=== PATIENT | female | born 1950 | race Caucasian/White ===

== ENCOUNTER → 2017-12-19 10:30 | Outpatient (CLI) | payer MEDICARE, SELFPAY ==
--- NOTE | 2017-12-19 | DI.CT.S_ITS ---
PROCEDURE: CT CERVICAL SPINE WO CON INDICATIONS: LEFT ARM PAIN TECHNIQUE: Noncontrast 3 mm thick sections acquired from the skull base to the T4 level. Sagittal and coronal reformats were then constructed. For radiation dose reduction, the following was used: automated exposure control, adjustment of mA and/or kV according to patient size. COMPARISON: [facility], CT, C-SPINE WITHOUT CONTRAST, 04/25/2015, 12:07. [facility], MR, C-SPINE WITHOUT CONTRAST, 07/20/2015, 13:13. [facility], CR, CERVICAL SPINE 2 OR 3 VIEWS, 08/17/2015, 14:30. FINDINGS: Image quality: Excellent. Bones: No fractures or dislocations. Visualized superior ribs are intact. Extensive postoperative changes are seen, with anteriorly placed disc fixation devices at C5-C6 and C6-C7. Portions of posterior elements have been removed and plate and screw fixation can be seen posteriorly at C4, C5, C6, and C7. Note is made of a fusion anomaly, with partial fusion of the C2 and C3 vertebral bodies and posterior elements. At C3-C4, there is at least moderate neural foraminal narrowing. At C4-C5, there is moderate to severe bilateral neural foraminal narrowing. At C5-C6, there is moderate to severe bilateral neural foraminal narrowing. At C6-C7, there is moderate to severe bilateral neural foraminal narrowing. At C7-T1, bridging anterior osteophytes are seen. Soft tissues: Prevertebral soft tissues are normal in thickness. No paravertebral hematomas. No apical pneumothoraces. IMPRESSION: Extensive postoperative hardware, which appears unremarkable. Multiple levels of relatively prominent neural foraminal narrowing can be seen, which are similar to 2015. 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 Dictated by: Garret Espitia M.D. on 12/19/2017 at 13:48 Approved by: Garret Espitia M.D. on 12/19/2017 at 13:52
== END ==
PROVIDERS: PCP Physician Assistant; Visit Provider Orthopaedic Surgery
DX: M79.602 Pain in left arm (principal); M48.02 Spinal stenosis, cervical region; Z98.1 Arthrodesis status
CPT/HCPCS: 72125

== ENCOUNTER → 2018-02-04 13:33 | Outpatient (CLI) | payer MEDICARE, SELFPAY ==
[2018-02-04 14:05] LABS: Hematocrit 41.6 % (36-46); Hemoglobin 14.2 g/dL (12.0-16.0); Mean Corpuscular HGB Conc 34.2 % (30-36); Mean Corpuscular Hemoglobin 31.1 PG (26-34); Platelet Count 231 X10^3/uL (150-400); Red Blood Cell Count 4.57 X10^6/uL (4.0-5.2); Red Cell Distribution Width 12.8 % (11.6-14.8); White Blood Cell Count 5.6 X10^3/uL (4.5-11.0)
== END ==
PROVIDERS: PCP Physician Assistant; Visit Provider Orthopaedic Surgery
DX: Z01.818 Encounter for other preprocedural examination (principal)
CPT/HCPCS: 36415; 85027; 93005

== ENCOUNTER 2018-02-10 06:28 | Inpatient (IN) | payer MEDICARE, SELFPAY ==
[2018-01-30 10:46] VITALS: BMI 29.9
[2018-02-10] VITALS (18 sets, daily range): BP systolic 108–141; BP diastolic 58–82; PULSE 65–89; RESP 10–20; TEMP 36.2–37; O2SAT 94–100; BMI 29.9
[2018-02-10] MEDS: LACTATED RINGERS 1,000 ML 42 ML IV ×2 (07:00→10:52)
--- NOTE | 2018-02-10 07:43 | PM.PREOP ---
Pre-operative Note Interval Note Pre-op Check: Yes History & Physical Reviewed by Physician and Yes Exam Performed Changes: No
[2018-02-10] MEDS: MIDAZOLAM 2 MG/2 ML VIAL IV (07:48)
[2018-02-10] MEDS: CEFAZOLIN 2 GM/100 ML FROZ.PIGGY IV ×3 (08:00→23:48)
--- NOTE | 2018-02-10 08:42 | SUR.OPER ---
Prone on padded OR bed, head in foam head support, gel chest rolls, gel pad under knees, pillow under lower legs, toes free of pressure, arms secured on padded arm boards at <90 degrees abduction. 3 tape from shoulder to foot of bed bilaterally. Safety belt at thigh.
[2018-02-10] MEDS: BUPIVACAINE 0.5% W/ EPI (PF) VIAL 30 ML INJ (09:17)
[2018-02-10] MEDS: BUPIVACAINE LIPOSOME 266 MG/20 ML VIAL INJ (09:17)
[2018-02-10] MEDS: SODIUM CHLORIDE 0.9% 1,000 ML, GENTAMICIN 80 MG IRR (09:18)
[2018-02-10] MEDS: THROMBIN (BOVINE) 5,000 UNIT VIAL 5000 UNIT TOP (09:20)
[2018-02-10] MEDS: VANCOMYCIN 1,000 MG VIAL 1000 MG TOP (10:30)
--- NOTE | 2018-02-10 10:44 | DI.RAD.S_ITS ---
PROCEDURE: XR CERVICAL SPINE 4V OR 5V INDICATIONS: C4-5 POSTERIOR FUSION BILATERAL FINDINGS: 4 limited intraoperative fluoroscopically stored images of the cervical spine were obtained for intraoperative hardware localization purposes. These images are not meant for diagnostic purposes. Intraoperative findings related to a posterior cervical fusion are present. IMPRESSION: Intraoperative images obtained are in the patient's posterior cervical fusion procedure. Dictated by: Zay Weems M.D. on 02/10/2018 at 9:58 Approved by: Zay Weems M.D. on 02/10/2018 at 9:59
[2018-02-10] MEDS: fentaNYL 100 MCG/2 ML INJ IV ×2 (11:30→11:35)
--- NOTE | 2018-02-10 11:39 | P.OP_ITS ---
Operative Date/Time/Diagnoses Date of procedure: 02/10/18 Time of procedure: 11:27 Pre-op diagnosis: cervical stenosis with radiculopathy Post-op diagnosis: same Procedure & Clinicians Procedure: C45, C56, C67 left side revision foraminotomies C45 posterior instrumented fusion C56 posterior instrumented fusion removal C56 posterior hardware microscope Same procedure as scheduled: Yes Indications: [age] year old female with intractable pain from cervical radiculopathy. They had failed conservative management and requested operative intervention. Risks and benefits of surgery were discussed and appropriate consents were obtained. Surgeon: Feliberto Segundo [employer] Professor: Lucy Davis Anesthesia Type: General Operative Notes Findings: C56 nonunion Closure Type: primary Specimen(s): none sent Implants & Drains: DTrax posterior cages with screws Applied: catheter Estimated Blood Loss (mL): 20 Blood products transfused: none Procedure in detail: The patient was brought to the operating room and intubated on the stretcher. Time-out was performed. There were then rolled over to the well-padded prone position on chest rolls. Two views of fluoroscopy were taken to confirm our positioning. The neck was then prepped and draped in the standard sterile fashion. Preoperative antibiotics were given. Using fluoroscopy, we localized for planned incisions. Two small 8 mm horizontal incisions were made over the lateral masses approximately 2 fingers below our planned surgical site. We then spread down and opened up the fascia. Then percutaneously placed our Steinmann pin through the soft tissue into the facet joint at C4-5 under fluoroscopic visualization. We used the reamer to decorticate the lateral masses compromising the facet. A trocar was placed over the Steinmann pin into the facet and then the pin was removed. We used a rasp to decorticate the facet joint itself. We then filled the DTrax cage with Osteocell bone graft and impacted it into the facet joint at C4-5 under fluoroscopic guidance. We then took the lateral mass screw and placed it through the cage and then into the lateral mass for the posterior screw fixation. The anthropometrist was removed and we packed more bone graft down the trocar covering the lateral mass. This was done bilaterally. This completed the instrumented posterior fusion at C4-5. We then opened up her previous 10 cm midline incision with a scalpel. Bovie was used to come down to the spinous processes. We then subperiosteally dissected the left-sided paraspinal muscles. Care was taken as we were going over her previous scar tissue. We stayed on top of the lamina and laminoplasty plates. We exposed out laterally over the lateral masses. We exposed our new posterior fusion at C4-5. The cage at C5-6 was examined. We could grab this and actually move between C5 and C6 and was felt that she had a nonunion at this level. The cage was well fixed into the under surface of the C5 facet but not attached to the C6. We used a bur to remove some of the bone above the cage and then removed the cage. We continued our dissection and exposed the medial edges of the lateral masses from C4 through 7. We then brought in the microscope. A combination of bur, curette, and Kerrison rongeur as was to perform keyhole foraminotomies at C4-5, C5-6 and C5-7. These were revisions as she had had previous surgery and there was scar tissue from her previous laminoplasty. We carefully had to dissect the scar off of the dura and nerve roots and work out laterally. We kept removing more tissue until we were out laterally past the pedicles at each level. A nerve hook could be passed along the foramen and the nerve was opened up at every level. The middle level at C5-6 had a completely flattened nerve root that gradually filled back in after the decompression. Then, we examined the lateral mass and facet at C5-6 where we had removed the previous cage. We used a [place] to go out and expose further laterally as well as go deeper until we had a firm endpoint at the end of the facet. I felt there was enough room to put a new cage out through here. I placed a Steinmann pin under direct visualization into the left lateral mass at C5-6. We then placed the trocar over this. We reamed with the rasp and then placed our DTrax cage under direct visualization into the facet joint. We then placed the screw through the cage to lock into the lateral mass for the posterior instrumentation fixation. We confirmed positioning with fluoroscopy and took our final x-rays. The wound was copiously irrigated. There was no bleeding. The posterior fascia was closed in multiple layers. Vancomycin powder was placed in the wound. The superficial and skin were closed. Sterile dressings were placed. The patient was then extubated and brought to the recovery room without complication. Complications: none Condition: stable Disposition: PACU Plan for aftercare: Soft collar for comfort. Inpatient. Up with physical therapy.
[2018-02-10] MEDS: LORazepam 2 MG/ML SYRINGE 1 MG IV ×2 (11:40→11:45)
[2018-02-10] MEDS: HYDROCODONE/ACET 5/325 TABLET 2 TAB PO ×2 (14:25→20:59)
[2018-02-10] MEDS: LACTATED RINGERS 1,000 ML 125 ML IV ×2 (14:40→23:44)
--- NOTE | 2018-02-10 15:38 | PC.NURSE ---
Pt arrived around 1200. Dressing to neck is cdi. IVF infusing at LR at 125cc/hr. Pt is A&Ox3. Desir putting out yellow urine. Pt admitted to the floor. She is resting comfortably and states that vicodin given at 1425 not as effective for pain control. Passed on to the MONIQUE RN and she is aware.
[2018-02-10] MEDS: MORPHINE 2 MG/ML INJ 1 MG IV ×2 (16:03→21:47)
--- NOTE | 2018-02-10 17:03 | PT.IPTN ---
Current Diagnoses Spinal stenosis, cervical region (02/10/18) Strain of muscle, fascia and tendon at neck level, subsequent encounter (02/10/18) Strain of muscle(s) and tendon(s) of the rotator cuff of left shoulder, subsequent encounter (02/10/18) Arthrodesis status (02/10/18) Surgery Performed Operation Date: 02/10/18 07:45 Actual Procedures p Left C4-5,C5-6,C6-7 Foraminotomies, C4-5 instru. fusion w/bone graft - Feliberto Segundo MD Physical Therapy Treatment Note M3 PT-IP Subjective Start: 02/10/18 17:02 Freq: NEEDED Status: Active Protocol: Document 02/10/18 17:02 AB (Rec: 02/10/18 17:03 AB [id number]) Subjective Physical Therapy Visit Type Type Patient Refusal Notes Checked on pt for PT eval but pt stated that she is not ready to do PT and maybe tomorrow. will check on pt tomorrow.
[2018-02-10] MEDS: GABAPENTIN 600 MG TABLET 1200 MG PO ×2 (17:16→21:01)
[2018-02-10] MEDS: HYDROCODONE/ACET 5/325 TABLET 1 TAB PO (18:04)
[2018-02-10] MEDS: hydrOXYzine pamoate 25 MG CAPSULE PO ×2 (18:05→23:50)
[2018-02-10] MEDS: DOCUSATE 100 MG CAPSULE PO (21:00)
[2018-02-10] MEDS: PANTOPRAZOLE 20 MG TABLET PO (21:03)
[2018-02-10] MEDS: SENNOSIDES 8.6 MG TABLET 17.2 MG PO (21:04)
[2018-02-10] MEDS: ZOLPIDEM 5 MG TABLET 10 MG PO (21:05)
[2018-02-10] MEDS: SUMAtriptan 25 MG TABLET 50 MG PO (23:53)
[2018-02-11] MEDS: HYDROCODONE/ACET 5/325 TABLET 2 TAB PO ×3 (01:01→13:13)
[2018-02-11 04:41] VITALS: BP 113/64; PULSE 62; RESP 16; TEMP 36.9; O2SAT 97
[2018-02-11 07:25] VITALS: BP 113/74; PULSE 62; RESP 16; TEMP 36.9; O2SAT 98
[2018-02-11 07:27] LABS: Hemoglobin 12.6 g/dL (12.0-16.0)
--- NOTE | 2018-02-11 07:42 | PM.PNPO.1 ---
Subjective Date Patient Seen: 02/11/18 Time Patient Seen: 07:42 Interval history: Pain better than last night. Still tingling left arm Exam Vital Signs (past 8 hours): - 02/10/18 23:56 02/11/18 04:41 Temperature 97.5 F L 98.5 F Pulse Rate 78 62 Respiratory Rate 18 16 Blood Pressure 141/78 H 113/64 Pulse Oximetry 98 97 Oxygen Delivery Method Nasal Cannula Oxygen Flow Rate 2 Const Orientation: alert and awake Back/Spine/Pelvis Other: cdi/ 5/5 motor BUE except 4/5 B body die maker/int Objective Labs Result Diagrams: 02/11/18 07:00 Labs: Laboratory Results - last 24 hr 02/11/18 07:00 Hgb 12.6 Hct 36.0 Assessment & Plan Post-op Postoperative Procedures Operation Date: 02/10/18 07:45 Actual Procedures Side Surgeon p Left C4-5,C5-6,C6-7 Foraminotomies, C4-5 instru. fusion w/bone graft Feliberto Segundo MD She's progressing as expected. Plain for mobilization with PT today. Probable DC tomorrow Quality VTE Deep Vein Thrombosis/Pulmonary Embolism Present on Admission: No
[2018-02-11] MEDS: ATORVASTATIN 20 MG TABLET 40 MG PO (09:11)
[2018-02-11] MEDS: GABAPENTIN 600 MG TABLET 1200 MG PO ×3 (09:14→21:07)
[2018-02-11] MEDS: DOCUSATE 100 MG CAPSULE PO ×2 (09:14→21:08)
[2018-02-11] MEDS: PANTOPRAZOLE 20 MG TABLET PO ×2 (09:17→21:10)
--- NOTE | 2018-02-11 10:58 | PC.NURSE ---
Pt medicated with 2 vicodin and repositioned in bed. She is comfortable at this time and will be working with pt/ot later today. Incision to posterior neck with remy dressing and small amount of driend bloody drainage.
--- NOTE | 2018-02-11 11:08 | PT.IIE ---
Current Diagnoses Spinal stenosis, cervical region (02/10/18) Strain of muscle, fascia and tendon at neck level, subsequent encounter (02/10/18) Strain of muscle(s) and tendon(s) of the rotator cuff of left shoulder, subsequent encounter (02/10/18) Arthrodesis status (02/10/18) Surgery Performed Operation Date: 02/10/18 07:45 Actual Procedures p Left C4-5,C5-6,C6-7 Foraminotomies, C4-5 instru. fusion w/bone graft - Feliberto Segundo MD Surgical History (Last Updated 01/30/18 @ 11:41 by Jaja Anderson, RN) H/O hand surgery (Acute) History of back surgery (Acute) History of laminectomy (Acute) History of tonsillectomy (Acute) Status post cervical spinal fusion (Acute) Status post epidural steroid injection (Acute) Medical History (Last Updated 01/30/18 @ 11:56 by Jaja Anderson, RN) Anemia (Acute) Anxiety (Acute) Arthritis (Acute) Asthma (Acute) Cervical strain (Acute) Chronic pain (Acute) Constipation (Acute) Depression (Acute) Environmental allergies (Acute) History of migraine (Acute) History of stomach ulcers (Acute) Impaired vision (Acute) Neck pain (Acute) Numbness and tingling in left arm (Acute) Pain in both upper arms (Acute) Postmenopausal (Acute) Sinus drainage (Acute) Strain of left rotator cuff capsule (Acute) Stroke (Acute) Physical Therapy Inpatient Evaluation/Re-Eval M1 PT/OT-IP Prior Functional Status Start: 02/10/18 17:02 Freq: NEEDED Status: Active Protocol: Document 02/11/18 11:08 AB (Rec: 02/11/18 14:38 AB [id number]) Medical Review Prior Functional Status Medical History Reviewed Yes Communication able to make needs known Mobility and Gait pt stated that she is modified independent with all mobilities and ambulation using a walking stick/hiking pole for outdoor mobility but stated that she furniture walks inside the house Social History Household Members spouse Living Arrangements House Number of Floors (Floors) Two Floors Number of Stairs To Enter/Railing? no steps to enter; 14 steps to 2nd floor with R rail ascending Home Environment Standard Height Toilet Tub/Shower Home Equipment Front Wheel Walker Straight Cane Grab Bars Near Toilet Grab Bars In Shower M2 PT-IP Current Condition Start: 02/10/18 17:02 Freq: NEEDED Status: Active Protocol: Document 02/11/18 11:08 AB (Rec: 02/11/18 14:38 AB [id number]) Physical Therapy Current Condition Current Condition Evaluation Date 02/11/18 Treatment Diagnosis s/p cervical fusion; difficulties in walking Onset Date 02/10/18 Precautions Cervical Spine Precautions Soft Collar for Comfort No Heavy Lifting Log Roll M3 PT-IP Subjective Start: 02/10/18 17:02 Freq: NEEDED Status: Active Protocol: Document 02/11/18 11:08 AB (Rec: 02/11/18 14:38 AB [id number]) Subjective Physical Therapy Visit Type Type Initial Evaluation Visit Start Time 11:08 Visit Stop Time 11:45 Total Visit Minutes 57 Number of ASSISTANT PROSECUTING ATTORNEY Visits 0 Therapy Pain Assessment Pain When Pain Assessed At Rest Pain Present Pain Present Pain Reported Location Left Neck Intensity 9 Scale Used Numeric (1 - 10) Pain Management Techniques Apply Cold Timing of Activity with Medications M4 PT-IP Mobility and Gait Start: 02/10/18 17:02 Freq: NEEDED Status: Active Protocol: Document 02/11/18 11:08 AB (Rec: 02/11/18 14:38 AB [id number]) PT-Bed Mobility Assessment Supine to Sit Supine to Sit Maximum Assistance Sit to Supine Sit to Supine Maximum Assistance Scooting Scooting to Edge of Bed Maximum Assistance PT-Transfer Assessment Sit to and From Stand Sit to and from Stand Maximum Assistance 1 Person Assistance Use of Upper Extremities Equipment Transfer Assistive Device Gait Belt Front Wheeled Walker Orthotic/Prosthetic Devices or Brace: No Transfers Transfer Destination Chair Transfer Technique pt ambulated to the chair using FWW Gait Assessment Gait Gait Assistance Required: Moderate Assistance Maximum Assistance Distance (Feet) 12 Able to Maintain Weight Bearing Status Yes During Gait Assistive Devices Assistive Device Gait Belt Front Wheeled Walker Orthotic/Prosthetic Devices or Brace: No Gait Deviations General Gait Pattern Decreased Stride Length Decreased Feet Clearance Step-to Gait Factors Limiting Gait Function Factors Limiting Gait Function Decreased Activity Tolerance Decreased Strength Limited Range of Motion Pain Poor Balance Poor Safety Awareness PT-Balance Assessment Sitting Balance and Reactions Static Sitting Balance Ability Good Dynamic Sitting Balance Ability Fair Standing Balance and Reactions Static Standing Balance Ability Poor Dynamic Standing Balance Ability Poor Device Used FWW M5 PT-IP Objective Assessments Start: 02/10/18 17:02 Freq: NEEDED Status: Active Protocol: Document 02/11/18 11:08 AB (Rec: 02/11/18 14:38 AB [id number]) Orientation Orientation/Cognition Level of Alertness Alert Orientation Name Place Situation Safety Awareness Decreased Safety Awareness Gross Range of Motion Lower Extremity ROM Assessment Within Functional Limits Strength Lower Extremity Strength Assessment Right Impaired M6 PT-IP Treatment Start: 02/10/18 17:02 Freq: NEEDED Status: Active Protocol: Document 02/11/18 11:08 AB (Rec: 02/11/18 14:38 AB [id number]) Physical Therapy Treatment Education Education Provided Precautions Weight Bearing Status Post-Op Packet Safety M7 PT-IP Assessment and Plan Start: 02/10/18 17:02 Freq: NEEDED Status: Active Protocol: Document 02/11/18 11:08 AB (Rec: 02/11/18 14:38 AB [id number]) PT Summary Assessment and Plan Potential Rehabilitation Potential Good Summary Impairments Pain ROM Strength Balance Coordination Sensation Cognition Bed Mobility Transfers Gait Activity Tolerance Assessment Summary pt requiring max A and cues for mobility. d/c plan depending on pt's progress and if spouse will be able to assist pt at home. caregiver training will be conducted when appropriate. At this time, pt will require SNF rehab. Goals Bed Mobility Goal Standby Assistance Transfer Goal Standby Assistance Gait Goal Standby Assistance Gait Distance 150 Other Goals up/down 14 steps with R rail ascending Days to Meet Goals 5 Frequency of Treatment Frequency Of Treatment Twice a Day Treatment Plan Physical Therapy Treatment Plan Bed Mobility Training Transfer Training Gait Training Therapeutic Exercise Balance Retraining Post Op Education Discharge Planning Hot or Cold Pack Neuromuscular Re-ed Coordination Retraining Manual Therapy Other Recommendations and Next Treatment ambulation, caregiver training Focus Recommendations To Nursing Amount of Assist Needed 1 Person Assist Discharge Recommendations PT Discharge Recommendations Home with 24/7 Assist Home Health SNF Rehab Other Discharge Recommendations SNF vs home with 24/7 assist and homehealth PT
[2018-02-11] MEDS: METHOCARBAMOL 500 MG TABLET 1000 MG PO (12:40)
--- NOTE | 2018-02-11 13:55 | PT.IPTN ---
Current Diagnoses Spinal stenosis, cervical region (02/10/18) Strain of muscle, fascia and tendon at neck level, subsequent encounter (02/10/18) Strain of muscle(s) and tendon(s) of the rotator cuff of left shoulder, subsequent encounter (02/10/18) Arthrodesis status (02/10/18) Surgery Performed Operation Date: 02/10/18 07:45 Actual Procedures p Left C4-5,C5-6,C6-7 Foraminotomies, C4-5 instru. fusion w/bone graft - Feliberto Segundo MD Physical Therapy Treatment Note M2 PT-IP Current Condition Start: 02/10/18 17:02 Freq: NEEDED Status: Active Protocol: Document 02/11/18 11:08 AB (Rec: 02/11/18 14:38 AB [id number]) Physical Therapy Current Condition Current Condition Evaluation Date 02/11/18 Treatment Diagnosis s/p cervical fusion; difficulties in walking Onset Date 02/10/18 Precautions Cervical Spine Precautions Soft Collar for Comfort No Heavy Lifting Log Roll M3 PT-IP Subjective Start: 02/10/18 17:02 Freq: NEEDED Status: Active Protocol: Document 02/11/18 13:55 GGD (Rec: 02/11/18 14:54 GGD [id number]) Subjective Physical Therapy Visit Type Type Treatment Note Visit Start Time 13:30 Visit Stop Time 13:55 Total Visit Minutes 25 Number of TRASH COLLECTOR SUPERVISOR Visits 1 Physical Therapy Visit Comments Patient Comments Pt states that she is willing to get up. Therapy Pain Assessment Pain When Pain Assessed At Rest Pain Present Pain Present Pain Reported Location Left Neck Intensity 8 Scale Used Numeric (1 - 10) Pain Management Techniques Timing of Activity with Medications M4 PT-IP Mobility and Gait Start: 02/10/18 17:02 Freq: NEEDED Status: Active Protocol: Document 02/11/18 13:55 GGD (Rec: 02/11/18 14:54 GGD [id number]) PT-Bed Mobility Assessment Rolling Type of Rolling Roll to Left Level of Assist Contact Guard Assistance Supine to Sit Supine to Sit Contact Guard Assistance Sit to Supine Sit to Supine Contact Guard Assistance Scooting Scooting to Edge of Bed Contact Guard Assistance PT-Transfer Assessment Sit to and From Stand Sit to and from Stand Contact Guard Assistance Use of Upper Extremities Equipment Transfer Assistive Device Gait Belt Front Wheeled Walker Orthotic/Prosthetic Devices or Brace: No Transfers Transfer Destination Chair Gait Assessment Gait Gait Assistance Required: Contact Guard Assist Distance (Feet) 80 Able to Maintain Weight Bearing Status Yes During Gait Assistive Devices Assistive Device Gait Belt Front Wheeled Walker Orthotic/Prosthetic Devices or Brace: No Gait Deviations General Gait Pattern Decreased Stride Length Decreased Feet Clearance Step-to Gait Factors Limiting Gait Function Factors Limiting Gait Function Decreased Activity Tolerance Decreased Strength Limited Range of Motion Pain Poor Balance Poor Safety Awareness M5 PT-IP Objective Assessments Start: 02/10/18 17:02 Freq: NEEDED Status: Active Protocol: Document 02/11/18 11:08 AB (Rec: 02/11/18 14:38 AB [id number]) Orientation Orientation/Cognition Level of Alertness Alert Orientation Name Place Situation Safety Awareness Decreased Safety Awareness Gross Range of Motion Lower Extremity ROM Assessment Within Functional Limits Strength Lower Extremity Strength Assessment Right Impaired M6 PT-IP Treatment Start: 02/10/18 17:02 Freq: NEEDED Status: Active Protocol: Document 02/11/18 13:55 GGD (Rec: 02/11/18 14:54 GGD [id number]) Physical Therapy Treatment Education Education Provided Safety M7 PT-IP Assessment and Plan Start: 02/10/18 17:02 Freq: NEEDED Status: Active Protocol: Document 02/11/18 13:55 GGD (Rec: 02/11/18 14:54 GGD [id number]) PT Summary Assessment and Plan Summary Assessment Summary Pt is improving with mobility. She need less assist with bed mobility and able to progress gait. She had mild unsteadiness with gait with FWW. She is able to sleep on main level of home, she doesn' t need to stair mobility. Recommendations To Nursing Amount of Assist Needed 1 Person Assist Discharge Recommendations PT Discharge Recommendations Home with Assistance Home with 18/11 Assist
--- NOTE | 2018-02-11 14:18 | OT.IP.EVAL ---
Current Diagnoses Spinal stenosis, cervical region (02/10/18) Strain of muscle, fascia and tendon at neck level, subsequent encounter (02/10/18) Strain of muscle(s) and tendon(s) of the rotator cuff of left shoulder, subsequent encounter (02/10/18) Arthrodesis status (02/10/18) Surgery Performed Operation Date: 02/10/18 07:45 Actual Procedures p Left C4-5,C5-6,C6-7 Foraminotomies, C4-5 instru. fusion w/bone graft - Feliberto Segundo MD Past Medical History (Last Updated 01/30/18 @ 11:56 by Jaja Anderson, RN) Anemia (Acute) Anxiety (Acute) Arthritis (Acute) Asthma (Acute) Cervical strain (Acute) Chronic pain (Acute) Constipation (Acute) Depression (Acute) Environmental allergies (Acute) History of migraine (Acute) History of stomach ulcers (Acute) Impaired vision (Acute) Neck pain (Acute) Numbness and tingling in left arm (Acute) Pain in both upper arms (Acute) Postmenopausal (Acute) Sinus drainage (Acute) Strain of left rotator cuff capsule (Acute) Stroke (Acute) Surgical History (Last Updated 01/30/18 @ 11:41 by Jaja Anderson, RN) H/O hand surgery (Acute) History of back surgery (Acute) History of laminectomy (Acute) History of tonsillectomy (Acute) Status post cervical spinal fusion (Acute) Status post epidural steroid injection (Acute) Occupational Therapy Inpatient Evaluation/Re-Eval M1 PT/OT-IP Prior Functional Status Start: 02/10/18 17:02 Freq: NEEDED Status: Active Protocol: Document 02/11/18 14:18 ASHLEY (Rec: 02/11/18 14:40 ASHLEY [id number]) Medical Review Prior Functional Status Medical History Reviewed Yes Diet/Fluid Consistency Regular Communication WNL Mobility and Gait Pt states she tends to furniture walk in house; especially when avoiding her large dog. She uses a walking stick in the community. Activities of Daily Living and IADL's Pt was independent with all self care, shares forest aide with and drives . Prior Functional Level (Other details) uses cane for mobility , but can assist 24/7 with IADLS, driving and pt showering PRN. Social History Household Members spouse Living Arrangements Apartment/Condo Number of Floors (Floors) Two Floors Number of Stairs To Enter/Railing? 11+3 stairs with railing to access bedroom, threshold only to enter house Home Environment Standard Height Toilet Tub/Shower Doors Home Equipment Hand Held Shower Grab Bars Near Toilet Grab Bars In Shower Employment Status Retired Additional Social History Comment Note there is no bathroom on upper level; pt uses BSC in a closet upstairs; will empty it M2 OT-IP Current Condition Start: 02/11/18 14:25 Freq: Status: Active Protocol: Document 02/11/18 14:18 PJM (Rec: 02/11/18 14:40 [facility] [id number]) Occupational Therapy Current Condition Current Condition Evaluation Date 02/11/18 Treatment Diagnosis decreased activity tolerance, self care, mobility s/p C4-7 PLIF Post Operative Precautions Cervical Spine Precautions Soft Collar for Comfort No Heavy Lifting Log Roll M3 OT- IP Subjective and Pain Start: 02/11/18 14:25 Freq: Status: Active Protocol: Document 02/11/18 14:18 PJM (Rec: 02/11/18 14:40 [facility] NRTM) OT- Subjective Occupational Therapy Visit Type Type Initial Evaluation Visit Start Time 13:58 Visit Stop Time 14:18 Total Visit Minutes 20 Notes Evaluation shortened by pt's high pain level this session; RN aware of current pain level Occupational Therapy Visit Comments Patient/Caregiver Goals to have less pain, be able to go up 14 stairs to get to her bedroom OT Pain Assessment Pain When Pain Assessed After Treatment Pain Present Pain Present Pain Reported Location Left Neck Intensity 9 Scale Used Numeric (1 - 10) Description Aching Acute Burning Pain Behaviors Crying Facial Grimacing Guarding Wincing Management Techniques Apply Cold Distraction Modification of Treatment Re-positioning Timing of Activity with Medications M4 OT- IP ADL's Start: 02/11/18 14:25 Freq: Status: Active Protocol: Document 02/11/18 14:18 PJM (Rec: 02/11/18 14:40 [facility] [id number]) OT [id number] General Evaluation Self-Feeding Ability Independent Comments OT Self-Feeding Comments after set up by pt report OT ADL-Grooming Comments OT Grooming Comments did not occur; pt not able to tolerate sitting up in chair this session OT ADL-Oral Care Comments Oral Care Comments did not occur; pt not able to tolerate sitting up in chair this session OT ADL-Dressing Comments OT Dressing Comments did not occur; pt not able to tolerate sitting up in chair this session OT ADL-Toileting General Evaluation Toileting Ability Total Assistance Areas Needing Assistance Empty Catheter or Colostomy Comments OT Toileting Comments pt still has busby OT ADL-Bathing Comments OT Bathing Comments to be assessed as activity tolerance improves M5 OT- IP IADL's Start: 02/11/18 14:25 Freq: Status: Active Protocol: Document 02/11/18 14:18 PJM (Rec: 02/11/18 14:40 [facility] [id number]) OT-Instrumental Activities of Daily Living Deficits IADL Deficits Identified Deficits Home Safety Awareness Awareness of Need for Assistance at Home Good Awareness Ability to Problem Solve Emergency Able to Problem Solve Situations Medication Management Medication Management No Deficits Identified Money Management Money Management No Deficits Identified Meal Preparation Meal Preparation Caregiver Provides Assist Marketing Operations Specialist Marketing Operations Specialist Caregiver Provides Assist Driving Driving Caregiver Provides Assist Driving Comments to assist until pt able M6 OT- IP Functional Cognition Start: 02/11/18 14:25 Freq: Status: Active Protocol: Document 02/11/18 14:18 PJM (Rec: 02/11/18 14:40 [facility] [id number]) Cognitive Factors Limiting Selfcare Function Cognitive Ability Level of Alertness Alert Patient Orientation Name Age Birthday Month Date Year Day of Week Place Situation Attention Span Ability Capable of Focused Attention Ability to Follow Commands Able to Follow One Step Commands Memory Description No Deficits Noted Safety Awareness No Deficits Noted Problem Solving Ability No deficits Noted Executive Function Ability No Deficits Noted Cognitive Comments Cognitive Assessment Comments pt distracted by high pain level OT- Vision and Hearing OT- Hearing Assessment OT- Hearing Assessment WFL OT- Vision Assessment Visual Acuity WFL Glasses All The Time Vision Assessment Comments pt denies any vision changes M7 OT- IP Mobility and Balance Start: 02/11/18 14:25 Freq: Status: Active Protocol: Document 02/11/18 14:18 PJM (Rec: 02/11/18 14:40 [facility] [id number]) OT- Bed Mobility Assessment Rolling Type of Rolling Roll to Left Level of Assistance Standby Assistance Sit to Supine Sit to Supine Assist Contact Guard Assistance Scooting Scooting to Edge of Bed Standby Assistance Scooting Up and Down in Bed Standby Assistance OT-Transfer Assessment Sit to and From Stand Sit to and from Stand Contact Guard Assistance Transfers Transfer Ability Contact Guard Assistance Technique Transfer Destination Bed Transfer Technique Stand Step Pivot Devices Transfer Assistive Devices Bed Rail Gait Belt Front Wheeled Walker Comments Mobility Comments pt moves well depsite high pain level OT- Gait Assessment Gait Gait Assistance Required: Contact Guard Assist Distance (Feet) 15 Assistive Devices Assistive Device Gait Belt Front Wheeled Walker OT- Balance Assessment Sitting Balance and Reactions Static Sitting Balance Ability Good Dynamic Sitting Balance Ability Good Standing Balance and Reactions Static Standing Balance Ability Good Dynamic Standing Balance Ability Good M8 OT- IP Objective Assessments Start: 02/11/18 14:25 Freq: Status: Active Protocol: Document 02/11/18 14:18 PJM (Rec: 02/11/18 14:40 PJ [id number]) OT Gross Range of Motion Upper Extremity Range of Motion Assessment Within Functional Limits ROM Impairments shoulders tested to 90 degrees only due to recent surgery OT Strength Upper Extremity Strength Assessment Within Functional Limits Hand Furnace Repairer Strength Hand Dominance Right OT- Coordination Assessment Comments Coordination Comments BUE WFL OT-Muscle Tone Assessment Muscle Tone WNL Yes OT Sensation Assessment Comments Summary Comments pt reports numbness in L fingertips and palm of hand and around L elbow Edema Edema Absent M9 OT- IP Assessment and Plan Start: 02/11/18 14:25 Freq: Status: Active Protocol: Document 02/11/18 14:18 PJM (Rec: 02/11/18 14:40 PJ [id number]) OT Summary Assessment and Plan Potential Rehabilitation Potential Good Analytic Complexity at Evaluation Low Summary OT Impairments Pain Grooming Dressing Toileting Bathing Toilet Transfers Shower Transfers Progress Towards Goals Slow Progress due to Pain Assessment Summary Low complexity OT assessment begun as limited by pt's high pain level today which is significantly limiting her ability to be out of bed. Pt tolerates walking better than sitting in chair. Pt currently has performance deficits in activity tolerance, all functional mobility/transfers, standing grooming, dressing, bathing and toileting. Pt moves well when up and anticipate she will progress quickly once her pain is controlled. Pt reports this is her fourth C spine surgery so she is familiar with precautions and adapted ADLS. Supportive can provide 24 hr assist at home. Goals Grooming Goal Independent Dressing Goal Standby Assistance Toileting Goal Independent Bathing Goal Minimal Assistance Toilet Transfer Goal Independent Bedside Commode Shower Transfer Goal Contact Guard Assistance Patient/Caregiver Education Goal Demonstrate Post-Op Precautions Demonstrate Energy Conservation and Pacing Caregiver Independent Assisting Patient OT-Other Goals grooming to be done standing at sink with good body mechanics Days to Meet Goals 3 Frequency of Treatment Frequency Of Treatment Once a Day Treatment Plan OT Treatment Plan ADL Training Functional Mobility Patient/Family Education Discharge Planning Discharge Recommendations OT Discharge Recommendations Home with 18/11 Assist
[2018-02-11] MEDS: MORPHINE 2 MG/ML INJ IV (14:49)
[2018-02-11 16:53] VITALS: BP 122/60; PULSE 62; RESP 18; TEMP 36.7; O2SAT 97
[2018-02-11] MEDS: HYDROCODONE/ACET 5/325 TABLET 1 TAB PO (18:05)
--- NOTE | 2018-02-11 18:45 | PC.NURSE ---
Addendum entered by Flory Stinson R.N. 02/11/18 21:23: Pt Stable post op course. Soft collar in place. BOSTON dsg CDI HL intact/patent. Ambien given at HS for sleep. Desir cath patent clear urine. Call light w/in reach, bed alarm on for pt safety. Continue w/plan of care. Original Note: Pt resting quietly at this time. States that neck discomfort 10/05. BOSTON Dsg to surgical neck w/small dry drainge on dsg. Med w/Lindsay at 1850w/little relief. Ice placed of surgical neck. HL right wrist intact/patent. Desir cath patent clear yellow urine. Stable post op course. Call light w/in reach.
[2018-02-11 19:29] VITALS: BP 134/65; PULSE 64; RESP 16; TEMP 36.9; O2SAT 99
[2018-02-11] MEDS: SENNOSIDES 8.6 MG TABLET 17.2 MG PO (21:09)
[2018-02-11] MEDS: ZOLPIDEM 5 MG TABLET 10 MG PO (21:10)
[2018-02-11] MEDS: SUMAtriptan 25 MG TABLET 50 MG PO (21:15)
[2018-02-11 22:23] VITALS: O2SAT 98
[2018-02-12] VITALS (7 sets, daily range): BP systolic 113–141; BP diastolic 61–77; PULSE 69–80; RESP 16–20; TEMP 36.7–36.9; O2SAT 93–99
[2018-02-12] MEDS: HYDROCODONE/ACET 5/325 TABLET 2 TAB PO ×5 (00:32→18:57)
[2018-02-12] MEDS: MORPHINE 2 MG/ML INJ 1 MG IV (00:41)
--- NOTE | 2018-02-12 01:12 | PC.NURSE ---
NOC shift Start of shift, Pt c/o uncontrolled pain and poor positioning, assist with position to back, declines SCDs and ICE. Medicated with [place], Pt tearful and given IV Morphine for pain of 01/05. Assisted to breath and reposition in bed, log roll. Cervical collar in use. Posterior BOSTON in place, working. Numbness Reported to L hand post op, per Pt the doctor said the swelling would be better after a few days or more and help with this. Call light in reach. Snack provided.
[2018-02-12] MEDS: SUMAtriptan 25 MG TABLET 50 MG PO ×2 (06:12→20:11)
--- NOTE | 2018-02-12 07:54 | PM.PNPO.1 ---
Subjective Date Patient Seen: 02/12/18 Time Patient Seen: 07:54 Interval history: Patient is still having a large amount of pain in the neck, but getting better. She is laying down fairly comfortable right now but as soon as she tries to sit up or stand up there is a large amount of posterior neck pain. The arm is feeling much better today. Exam Vital Signs (past 8 hours): - 02/12/18 00:30 02/12/18 05:57 Temperature 98.4 F 98.4 F Pulse Rate 77 74 Respiratory Rate 20 18 Blood Pressure 141/77 H 138/72 Pulse Oximetry 99 93 Oxygen Delivery Method Nasal Cannula Oxygen Flow Rate 1 Const Orientation: alert and oriented x3 Back/Spine/Pelvis Other: Minimal dry drainage on dressing. 5/5 motor both upper extremities except for 4-5 left hand intrinsics Objective Labs Result Diagrams: 02/11/18 07:00 Assessment & Plan Post-op Postoperative Procedures Operation Date: 02/10/18 07:45 Actual Procedures Side Surgeon p Left C4-5,C5-6,C6-7 Foraminotomies, C4-5 instru. fusion w/bone graft Feliberto Segundo MD she is making slow progress but getting better. Continue with mobilization with physical therapy. I anticipate probable discharge home tomorrow. Quality VTE Deep Vein Thrombosis/Pulmonary Embolism Present on Admission: No
--- NOTE | 2018-02-12 09:30 | PT.IPTN ---
Current Diagnoses Spinal stenosis, cervical region (02/10/18) Strain of muscle, fascia and tendon at neck level, subsequent encounter (02/10/18) Strain of muscle(s) and tendon(s) of the rotator cuff of left shoulder, subsequent encounter (02/10/18) Arthrodesis status (02/10/18) Surgery Performed Operation Date: 02/10/18 07:45 Actual Procedures p Left C4-5,C5-6,C6-7 Foraminotomies, C4-5 instru. fusion w/bone graft - Feliberto Segundo MD Physical Therapy Treatment Note M2 PT-IP Current Condition Start: 02/10/18 17:02 Freq: NEEDED Status: Active Protocol: Document 02/11/18 11:08 AB (Rec: 02/11/18 14:38 AB [id number]) Physical Therapy Current Condition Current Condition Evaluation Date 02/11/18 Treatment Diagnosis s/p cervical fusion; difficulties in walking Onset Date 02/10/18 Precautions Cervical Spine Precautions Soft Collar for Comfort No Heavy Lifting Log Roll M3 PT-IP Subjective Start: 02/10/18 17:02 Freq: NEEDED Status: Active Protocol: Document 02/12/18 09:30 GGD (Rec: 02/12/18 11:35 GGD [id number]) Subjective Physical Therapy Visit Type Type Treatment Note Visit Start Time 09:10 Visit Stop Time 09:30 Total Visit Minutes 20 Number of KEY CUTTER Visits 2 Physical Therapy Visit Comments Patient Comments Pt states that she is willing to get up and walk. Therapy Pain Assessment Pain When Pain Assessed At Rest Pain Present Pain Present Pain Reported Location Left Neck Intensity 5 Scale Used Numeric (1 - 10) Pain Management Techniques Timing of Activity with Medications M4 PT-IP Mobility and Gait Start: 02/10/18 17:02 Freq: NEEDED Status: Active Protocol: Document 02/12/18 09:30 GGD (Rec: 02/12/18 11:35 GGD [id number]) PT-Bed Mobility Assessment Rolling Type of Rolling Roll to Left Level of Assist Contact Guard Assistance Supine to Sit Supine to Sit Contact Guard Assistance Sit to Supine Sit to Supine Contact Guard Assistance Scooting Scooting to Edge of Bed Contact Guard Assistance PT-Transfer Assessment Sit to and From Stand Sit to and from Stand Contact Guard Assistance Use of Upper Extremities Equipment Transfer Assistive Device Gait Belt Front Wheeled Walker Orthotic/Prosthetic Devices or Brace: No Transfers Transfer Destination Bed Gait Assessment Gait Gait Assistance Required: Contact Guard Assist Distance (Feet) 80 Able to Maintain Weight Bearing Status Yes During Gait Assistive Devices Assistive Device Gait Belt Front Wheeled Walker Orthotic/Prosthetic Devices or Brace: No Gait Deviations General Gait Pattern Decreased Stride Length Decreased Feet Clearance Step-to Gait Factors Limiting Gait Function Factors Limiting Gait Function Decreased Activity Tolerance Decreased Strength Limited Range of Motion Pain Poor Balance Poor Safety Awareness M5 PT-IP Objective Assessments Start: 02/10/18 17:02 Freq: NEEDED Status: Active Protocol: Document 02/11/18 11:08 AB (Rec: 02/11/18 14:38 AB [id number]) Orientation Orientation/Cognition Level of Alertness Alert Orientation Name Place Situation Safety Awareness Decreased Safety Awareness Gross Range of Motion Lower Extremity ROM Assessment Within Functional Limits Strength Lower Extremity Strength Assessment Right Impaired M6 PT-IP Treatment Start: 02/10/18 17:02 Freq: NEEDED Status: Active Protocol: Document 02/11/18 13:55 GGD (Rec: 02/11/18 14:54 GGD [id number]) Physical Therapy Treatment Education Education Provided Safety M7 PT-IP Assessment and Plan Start: 02/10/18 17:02 Freq: NEEDED Status: Active Protocol: Document 02/12/18 09:30 GGD (Rec: 02/12/18 11:35 GGD [id number]) PT Summary Assessment and Plan Summary Assessment Summary Pt had improved pain control with mobility. She had improved wi bed mobility. Her gait was limit by UE pain. Frequency of Treatment Frequency Of Treatment Twice a Day Recommendations To Nursing Amount of Assist Needed 1 Person Assist Discharge Recommendations PT Discharge Recommendations Home with Assistance Home with 24/ Assist
[2018-02-12] MEDS: hydrOXYzine pamoate 25 MG CAPSULE PO ×2 (09:31→21:20)
[2018-02-12] MEDS: ATORVASTATIN 20 MG TABLET 40 MG PO (09:31)
[2018-02-12] MEDS: DOCUSATE 100 MG CAPSULE PO ×2 (09:32→21:18)
[2018-02-12] MEDS: GABAPENTIN 600 MG TABLET 1200 MG PO ×3 (09:32→21:21)
[2018-02-12] MEDS: PANTOPRAZOLE 20 MG TABLET PO ×2 (10:27→21:19)
--- NOTE | 2018-02-12 11:42 | OT.IP.TRT ---
Current Diagnoses Spinal stenosis, cervical region (02/10/18) Strain of muscle, fascia and tendon at neck level, subsequent encounter (02/10/18) Strain of muscle(s) and tendon(s) of the rotator cuff of left shoulder, subsequent encounter (02/10/18) Arthrodesis status (02/10/18) Surgery Performed Operation Date: 02/10/18 07:45 Actual Procedures p Left C4-5,C5-6,C6-7 Foraminotomies, C4-5 instru. fusion w/bone graft - Feliberto Segundo MD Occupational Therapy Treatment Note M2 OT-IP Current Condition Start: 02/11/18 14:25 Freq: Status: Active Protocol: Document 02/11/18 14:18 PJM (Rec: 02/11/18 14:40 PJM [email or web address]) Occupational Therapy Current Condition Current Condition Evaluation Date 02/11/18 Treatment Diagnosis decreased activity tolerance, self care, mobility s/p C4-7 PLIF Post Operative Precautions Cervical Spine Precautions Soft Collar for Comfort No Heavy Lifting Log Roll M3 OT- IP Subjective and Pain Start: 02/11/18 14:25 Freq: Status: Active Protocol: Document 02/12/18 11:42 PJM (Rec: 02/12/18 16:33 PJM [email or web address]) OT- Subjective Occupational Therapy Visit Type Type Treatment Note Visit Start Time 11:04 Visit Stop Time 11:42 Total Visit Minutes 38 Notes Pt agreeable to tx with encouragement. Occupational Therapy Visit Comments Patient Comments I was able to sleep on my side last night. Patient/Caregiver Goals to go home when having less pain OT Pain Assessment Pain When Pain Assessed After Treatment Pain Present Pain Present Pain Reported Location Left Neck Intensity 8 Scale Used Numeric (1 - 10) Description Aching Acute M4 OT- IP ADL's Start: 02/11/18 14:25 Freq: Status: Active Protocol: Document 02/12/18 11:42 PJM (Rec: 02/12/18 16:33 PJM [id number]) OT [id number] General Evaluation Self-Feeding Ability Independent OT ADL-Grooming General Evaluation Grooming Ability Maximum Assistance Areas Needing Assistance Retrieving/Set-up of Grooming Items Combing/Brushing Hair Comments OT Grooming Comments Pt unable to lift BUES overhead for putting hair up in ponytail. will assist PRN at home. Pt SBA with seate face washing and oral care after set up. OT ADL-Oral Care General Eval Oral Care Ability Standby Assistance Areas of Assistance Retrieving/Set-Up of Items Devices Oral Care Devices Toothbrush OT ADL-Dressing General Eval Upper Body Dressing Ability Minimal Assistance Lower Body Dressing Ability Moderate Assistance Areas Needing Assistance Underpants/Brief Assistive Devices Dressing Assistive Devices Pierce And Shave Press Operator Comments OT Dressing Comments Pt donned brief seated EOB, total assist with socks, min assist with gown change OT ADL-Toileting Comments OT Toileting Comments did not occur, busby removed just prior to session OT ADL-Bathing Bathing Type Bathing Type Bed Bath General Evaluation Bathing Ability Moderate Assistance Comments OT Bathing Comments bed bath seated EOB M M7 OT- IP Mobility and Balance Start: 02/11/18 14:25 Freq: Status: Active Protocol: Document 02/12/18 11:42 PJM (Rec: 02/12/18 16:33 PJ [id number]) OT- Bed Mobility Assessment Rolling Type of Rolling Roll to Left Level of Assistance Standby Assistance Bedrails Supine to Sit Supine to Sit Assist Minimal Assistance 1 Person Assistance Sit to Supine Sit to Supine Assist Bedrails Scooting Scooting to Edge of Bed Standby Assistance OT-Transfer Assessment Sit to and From Stand Sit to and from Stand Contact Guard Assistance Comments Mobility Comments Pt stood by EOB for LB dressing OT- Gait Assessment Comments Gait Ability Comments see P.T. notes OT- Balance Assessment Sitting Balance and Reactions Static Sitting Balance Ability Good Dynamic Sitting Balance Ability Fair Standing Balance and Reactions Static Standing Balance Ability Good M9 OT- IP Assessment and Plan Start: 02/11/18 14:25 Freq: Status: Active Protocol: Document 02/12/18 11:42 PJM (Rec: 02/12/18 16:33 PJ [id number]) OT Summary Assessment and Plan Summary OT Impairments Pain Progress Towards Goals Slow Progress due to Pain Slow Progress due to Activity Tolerance Assessment Summary Significant pain when out of bed continues to limit activity tolerance today; however, pt was able to increase participation in sponge bathing and dressing this session.Performs all task very slowly. Pt declined to get up to sink for grooming or to chair for lunch due to severe neck pain. RN aware and in to bring pt muscle relaxer in addition to pain meds. Pt still plans to d/c home with 24 hr assist from . Will complete family education with tomorrow. Goals Grooming Goal Independent Dressing Goal Standby Assistance Toileting Goal Independent Bathing Goal Minimal Assistance Toilet Transfer Goal Independent Bedside Commode Shower Transfer Goal Contact Guard Assistance Patient/Caregiver Education Goal Demonstrate Post-Op Precautions Demonstrate Energy Conservation and Pacing Caregiver Independent Assisting Patient OT-Other Goals grooming to be done standing at sink with good body mechanics Days to Meet Goals 2 Frequency of Treatment Frequency Of Treatment Once a Day Treatment Plan OT Treatment Plan ADL Training Functional Mobility Patient/Family Education Discharge Planning Discharge Recommendations OT Discharge Recommendations Home with 24/7 Assist
[2018-02-12] MEDS: METHOCARBAMOL 500 MG TABLET 1000 MG PO (11:45)
--- NOTE | 2018-02-12 12:22 | PC.NURSE ---
Sara has been somewhat slower to mobilize. She was able to sit on toilet, and perform with PT, but then immediately she asked to go back to bed. She rec'vd Louin this AM, along with Vistaril, but by 1130 stated pain was still 9/10. Given Robaxin and is now asleep. VSS. Thang d/c'd. HNV yet. She states she still has some numbness/tingling fingers of L hand. Barber device intact with blinking green light. Drsg. to posterior neck has sm. amt. old dried drainage/ intact.
--- NOTE | 2018-02-12 15:05 | PT.IPTN ---
Current Diagnoses Spinal stenosis, cervical region (02/10/18) Strain of muscle, fascia and tendon at neck level, subsequent encounter (02/10/18) Strain of muscle(s) and tendon(s) of the rotator cuff of left shoulder, subsequent encounter (02/10/18) Arthrodesis status (02/10/18) Surgery Performed Operation Date: 02/10/18 07:45 Actual Procedures p Left C4-5,C5-6,C6-7 Foraminotomies, C4-5 instru. fusion w/bone graft - Feliberto Segundo MD Physical Therapy Treatment Note M2 PT-IP Current Condition Start: 02/10/18 17:02 Freq: NEEDED Status: Active Protocol: Document 02/11/18 11:08 AB (Rec: 02/11/18 14:38 AB [id number]) Physical Therapy Current Condition Current Condition Evaluation Date 02/11/18 Treatment Diagnosis s/p cervical fusion; difficulties in walking Onset Date 02/10/18 Precautions Cervical Spine Precautions Soft Collar for Comfort No Heavy Lifting Log Roll M3 PT-IP Subjective Start: 02/10/18 17:02 Freq: NEEDED Status: Active Protocol: Document 02/12/18 15:05 GGD (Rec: 02/12/18 16:12 GGD [email or web address]) Subjective Physical Therapy Visit Type Type Treatment Note Visit Start Time 14:50 Visit Stop Time 15:05 Total Visit Minutes 15 Number of PHOTO EQUIPMENT TECHNICIAN Visits 3 Physical Therapy Visit Comments Patient Comments Pt states she is feeling better and hopes to go home tomorrow. Therapy Pain Assessment Pain When Pain Assessed At Rest Pain Present Pain Present Denied Pain M4 PT-IP Mobility and Gait Start: 02/10/18 17:02 Freq: NEEDED Status: Active Protocol: Document 02/12/18 15:05 GGD (Rec: 02/12/18 16:12 GGD [email or web address]) PT-Transfer Assessment Sit to and From Stand Sit to and from Stand Contact Guard Assistance Use of Upper Extremities Equipment Transfer Assistive Device Gait Belt Front Wheeled Walker Orthotic/Prosthetic Devices or Brace: No Transfers Transfer Destination Chair Gait Assessment Gait Gait Assistance Required: Contact Guard Assist Distance (Feet) 60 Able to Maintain Weight Bearing Status Yes During Gait Assistive Devices Assistive Device Gait Belt Front Wheeled Walker Orthotic/Prosthetic Devices or Brace: No Gait Deviations General Gait Pattern Decreased Stride Length Decreased Feet Clearance Step-to Gait Factors Limiting Gait Function Factors Limiting Gait Function Decreased Activity Tolerance Decreased Strength Pain Poor Balance Poor Safety Awareness M5 PT-IP Objective Assessments Start: 02/10/18 17:02 Freq: NEEDED Status: Active Protocol: Document 02/11/18 11:08 AB (Rec: 02/11/18 14:38 AB [id number]) Orientation Orientation/Cognition Level of Alertness Alert Orientation Name Place Situation Safety Awareness Decreased Safety Awareness Gross Range of Motion Lower Extremity ROM Assessment Within Functional Limits Strength Lower Extremity Strength Assessment Right Impaired M6 PT-IP Treatment Start: 02/10/18 17:02 Freq: NEEDED Status: Active Protocol: Document 02/11/18 13:55 GGD (Rec: 02/11/18 14:54 GGD [email or web address]) Physical Therapy Treatment Education Education Provided Safety M7 PT-IP Assessment and Plan Start: 02/10/18 17:02 Freq: NEEDED Status: Active Protocol: Document 02/12/18 15:05 GGD (Rec: 02/12/18 16:12 GGD [email or web address]) PT Summary Assessment and Plan Summary Assessment Summary Pt had no dizziness with gait. She need cues for hand placement with sit to stand. She was stable with gait with FWW. Frequency of Treatment Frequency Of Treatment Twice a Day Treatment Plan Physical Therapy Treatment Plan Bed Mobility Training Transfer Training Gait Training Therapeutic Exercise Balance Retraining Post Op Education Discharge Planning Hot or Cold Pack Neuromuscular Re-ed Coordination Retraining Manual Therapy Other Recommendations and Next Treatment ambulation, caregiver training Focus Recommendations To Nursing Amount of Assist Needed 1 Person Assist Discharge Recommendations PT Discharge Recommendations Home with Assistance Home with / Assist
--- NOTE | 2018-02-12 15:44 | CM.DPC ---
DCP Cont: Met w/pt and spouse, explained SW role. Pt explained she had a slow start but expects to DC home tomorrow. Pt and spouse agree they expect no barriers to safe DC home, likely tomorrow. Reviewed DCP w/HOUSEHOLD APPLIANCE MECHANIC Jennifer, she agreed that pt should be safe to DC home tomorrow as planned. This HAND BLOCKER following closely in case DC needs or plans change. KENDY
[2018-02-12] MEDS: ZOLPIDEM 5 MG TABLET 10 MG PO (21:20)
[2018-02-12] MEDS: MAGNESIUM HYDROXIDE 30 ML UDC PO (21:24)
--- NOTE | 2018-02-12 21:56 | PC.NURSE ---
This RN agrees with charting done with student nurse Carmen this shift.
--- NOTE | 2018-02-12 21:56 | PC.NURSE ---
Student Nurse Notes Pt reported numbness on left finger tips. She ambulated and voided several times throughout the shift. She had trouble repositioning her self back on bed because of pain, log roll. BOSTON dressing intact with blinking green light. She is on bed, rails up x2, call light withing reach. she decided to removed her cervical collar to go to sleep.
[2018-02-13] MEDS: HYDROCODONE/ACET 5/325 TABLET 2 TAB PO ×2 (02:52→08:22)
[2018-02-13 03:01] VITALS: BP 126/75; PULSE 76; RESP 22; TEMP 36.5; O2SAT 94
[2018-02-13] MEDS: GABAPENTIN 600 MG TABLET 1200 MG PO (08:22)
[2018-02-13] MEDS: DOCUSATE 100 MG CAPSULE PO (08:23)
[2018-02-13] MEDS: PANTOPRAZOLE 20 MG TABLET PO (08:23)
[2018-02-13] MEDS: ATORVASTATIN 20 MG TABLET 40 MG PO (08:23)
[2018-02-13] MEDS: SENNOSIDES 8.6 MG TABLET 17.2 MG PO (08:24)
--- NOTE | 2018-02-13 08:32 | PM.DS.1 ---
History of Present Illness Date Patient Seen: 02/13/18 Time Patient Seen: 08:33 Chief complaint: [id number] Narrative: Details of the patient's H&P can be found in the electronic chart. Discharge Providers Date of admission: 02/10/18 06:28 Primary care physician: Chetna Otero PA-C Consults: 02/10/18 14:08 Consult to Occupational Therapy Evaluate & Treat Comment: Physician Instructions: Evaluate and treat Consult to Physical Therapy Evaluate & Treat Comment: Physician Instructions: Evaluate and Treat Discharge provider: Judy Lala PA-C Discharge Date: 02/13/18 Summary Discharge Diagnosis: Cervical stenosis with radiculopathy Hospital Course: Patient was admitted taken operating room where she had an C45, C56, C67 left side revision foraminotomies. C45 posterior instrumented fusion, C56 posterior instrumented fusion by Dr. Segundo. She recovered well and was transferred to the floor for further care. 1st couple days postoperatively she was having a lot of pain in back of neck area and tingling down left arm and some weakness in hand. By PD 3, pain in back neck was much better. Left arm weakness better and numbness only in fingers. She was ambulating well, eating and drinking well, able to urinate without difficulty and was ready to be discharged home. She will follow up in office in 10-14 days. Soft collar for comfort. No twisting or bending of neck. Status at Discharge Cognitive/behavioral status at discharge: Alert and orient times Functional status at discharge: independent ambulation Overall status at discharge: patient is progressing back to baseline Time Spent with Patient Less than 30 minutes Exam Vital Signs (past 8 hours): - 02/13/18 03:01 Temperature 97.7 F Pulse Rate 76 Respiratory Rate 22 Blood Pressure 126/75 Pulse Oximetry 94 Oxygen Delivery Method Room Air Oxygen Flow Rate 0 Narrative Exam Narrative: Patient in bed. Having breakfast. Appears comfortable. Alert orient x3. Soft collar off. Barber dressing with some dry blood. 5/5 BUE strength. Good hand residential worker bilaterally. Some numbness in the fingers of left hand. Good radial pulse bilaterally. Objective Labs Result Diagrams: 02/11/18 07:00 Discharge Plan Discharge Plan Patient Disposition: Home Discharge comment: Soft collar for comfort. Do not take more than 4000mg of acetaminophen from all sources. Discharge Med Rec/Prescriptions Prescriptions: New hydrocodone-acetaminophen 5-325 mg Tablet 1 tab PO Q4-6H PRN (Reason: Pain, Moderate (4-6)) Qty: 42 RF: 0 hydroxyzine pamoate [Vistaril] 25 mg capsule 25 mg PO Q6-8H PRN (Reason: muscle spasm) Qty: 40 RF: 0 Continue atorvastatin 40 mg Tablet 40 mg PO DAILY RF: 0 sumatriptan succinate 100 mg Tablet 50 mg PO SEEINSTR PRN (Reason: Migraine Headache) RF: 0 diphenhydramine HCl 25 mg Capsule 50 mg PO Q4-6H PRN (Reason: Allergies) RF: 0 gabapentin 300 mg Capsule 900 mg PO TID RF: 0 acetaminophen 500 mg Capsule 1,000 mg PO Q6H PRN (Reason: Pain) RF: 0 omeprazole 20 mg PO BID RF: 0 methocarbamol [Robaxin] 500 mg Tablet 1,000 mg PO Q6H PRN (Reason: Muscle Pain) RF: 0 zolpidem 10 mg Tablet 10 mg PO BEDTIME RF: 0 Discontinued hydrocodone-acetaminophen 5-325 mg Tablet 1 tab PO Q6H PRN (Reason: pain) RF: 0 Follow up/Referrals: Feliberto Segundo MD [Physician] - (Follow-up as scheduled time and date. Contact office with any issues or concerns.) Provider Discharge Instructions Diet: Diet as Tolerated Activity: Activity as tolerated. No bending or twisting of neck. Cold/Heat Therapy: Apply ice as needed for pain and inflammation. Skin/Wound/Dressing Care Report to your healthcare provider any signs of infection, such as:: chills, fever, increased pain and unusual drainage Dressing: Keep dressing on. May shower. Discharge Data Primary Care Provider: Chetna Otero Attending Provider: Feliberto Segundo Admit Date/Time: 02/10/18 06:28 Quality VTE Deep Vein Thrombosis/Pulmonary Embolism Present on Admission: No
--- NOTE | 2018-02-13 08:39 | P.DS_ITS ---
History of Present Illness Date Patient Seen: 02/13/18 Time Patient Seen: 08:33 Chief complaint: [id number] Narrative: Details of the patient's H&P can be found in the electronic chart. Discharge Providers Date of admission: 02/10/18 06:28 Primary care physician: Chetna Otero PA-C Consults: 02/10/18 14:08 Consult to Occupational Therapy Evaluate & Treat Comment: Physician Instructions: Evaluate and treat Consult to Physical Therapy Evaluate & Treat Comment: Physician Instructions: Evaluate and Treat Discharge provider: Judy Lala PA-C Discharge Date: 02/13/18 Summary Discharge Diagnosis: Cervical stenosis with radiculopathy Hospital Course: Patient was admitted taken operating room where she had an C45 , C56, C67 left side revision foraminotomies. C45 posterior instrumented fusion , C56 posterior instrumented fusion by Dr. Segundo. She recovered well and was transferred to the floor for further care. 1st couple days postoperatively she was having a lot of pain in back of neck area and tingling down left arm and some weakness in hand. By PD 3, pain in back neck was much better. Left arm weakness better and numbness only in fingers. She was ambulating well, eating and drinking well, able to urinate without difficulty and was ready to be discharged home. She will follow up in office in 10-14 days. Soft collar for comfort. No twisting or bending of neck. Status at Discharge Cognitive/behavioral status at discharge: Alert and orient times Functional status at discharge: independent ambulation Overall status at discharge: patient is progressing back to baseline Time Spent with Patient Less than 30 minutes Exam Vital Signs (past 8 hours): - 02/13/18 03:01 Temperature 97.7 F Pulse Rate 76 Respiratory Rate 22 Blood Pressure 126/75 Pulse Oximetry 94 Oxygen Delivery Method Room Air Oxygen Flow Rate 0 Narrative Exam Narrative: Patient in bed. Having breakfast. Appears comfortable. Alert orient x3. Soft collar off. Barber dressing with some dry blood. 5/5 BUE strength. Good hand shot hole shooter bilaterally. Some numbness in the fingers of left hand. Good radial pulse bilaterally. Objective Labs Result Diagrams: 02/11/18 07:00 Discharge Plan Discharge Plan Patient Disposition: Home Discharge comment: Soft collar for comfort. Do not take more than 4000mg of acetaminophen from all sources. Discharge Med Rec/Prescriptions Prescriptions: New hydrocodone-acetaminophen 5-325 mg Tablet 1 tab PO Q4-6H PRN (Reason: Pain, Moderate (4-6)) Qty: 42 RF: 0 hydroxyzine pamoate [Vistaril] 25 mg capsule 25 mg PO Q6-8H PRN (Reason: muscle spasm) Qty: 40 RF: 0 Continue atorvastatin 40 mg Tablet 40 mg PO DAILY RF: 0 sumatriptan succinate 100 mg Tablet 50 mg PO SEEINSTR PRN (Reason: Migraine Headache) RF: 0 diphenhydramine HCl 25 mg Capsule 50 mg PO Q4-6H PRN (Reason: Allergies) RF: 0 gabapentin 300 mg Capsule 900 mg PO TID RF: 0 acetaminophen 500 mg Capsule 1,000 mg PO Q6H PRN (Reason: Pain) RF: 0 omeprazole 20 mg PO BID RF: 0 methocarbamol [Robaxin] 500 mg Tablet 1,000 mg PO Q6H PRN (Reason: Muscle Pain) RF: 0 zolpidem 10 mg Tablet 10 mg PO BEDTIME RF: 0 Discontinued hydrocodone-acetaminophen 5-325 mg Tablet 1 tab PO Q6H PRN (Reason: pain) RF: 0 Follow up/Referrals: Feliberto Segundo MD [Physician] - (Follow-up as scheduled time and date. Contact office with any issues or concerns.) Provider Discharge Instructions Diet: Diet as Tolerated Activity: Activity as tolerated. No bending or twisting of neck. Cold/Heat Therapy: Apply ice as needed for pain and inflammation. Skin/Wound/Dressing Care Report to your healthcare provider any signs of infection, such as:: chills, fever, increased pain and unusual drainage Dressing: Keep dressing on. May shower. Discharge Data Primary Care Provider: Chetna Otero Attending Provider: Feliberto Segundo Admit Date/Time: 02/10/18 06:28 Quality VTE Deep Vein Thrombosis/Pulmonary Embolism Present on Admission: No
[2018-02-13 09:15] VITALS: BP 125/71; PULSE 72; RESP 16; TEMP 36.6; O2SAT 94
[2018-02-13] MEDS: hydrOXYzine pamoate 25 MG CAPSULE PO (09:44)
--- NOTE | 2018-02-13 11:26 | OT.IP.TRT ---
Current Diagnoses Spinal stenosis, cervical region (02/10/18) Strain of muscle, fascia and tendon at neck level, subsequent encounter (02/10/18) Strain of muscle(s) and tendon(s) of the rotator cuff of left shoulder, subsequent encounter (02/10/18) Arthrodesis status (02/10/18) Surgery Performed Operation Date: 02/10/18 07:45 Actual Procedures p Left C4-5,C5-6,C6-7 Foraminotomies, C4-5 instru. fusion w/bone graft - Feliberto Segundo MD Occupational Therapy Treatment Note M3 OT- IP Subjective and Pain Start: 02/11/18 14:25 Freq: Status: Active Protocol: Document 02/13/18 11:26 PJM (Rec: 02/13/18 16:07 PJ [id number]) OT- Subjective Occupational Therapy Visit Type Type Treatment Note Visit Start Time 10:32 Visit Stop Time 11:26 Total Visit Minutes 54 Occupational Therapy Visit Comments Patient Comments I am going home today. I would like to shower. Patient/Caregiver Goals to have less neck pain and return to being independent in home setting OT Pain Assessment Pain When Pain Assessed After Treatment Pain Present Pain Present Pain Reported Location Left Neck Intensity 7 Scale Used Numeric (1 - 10) Description Aching Acute Pain Behaviors Facial Grimacing Guarding Wincing Management Techniques Distraction Re-positioning Timing of Activity with Medications M4 OT- IP ADL's Start: 02/11/18 14:25 Freq: Status: Active Protocol: Document 02/13/18 11:26 PJM (Rec: 02/13/18 16:07 PJ [id number]) OT PRN-Tqiu-Spzefww General Evaluation Self-Feeding Ability Independent OT ADL-Grooming General Evaluation Grooming Ability Maximum Assistance Areas Needing Assistance Combing/Brushing Hair Comments OT Grooming Comments pt SBA to wash face, max assist with hair care due to inability to lift B arms due to neck pain OT ADL-Oral Care Comments Oral Care Comments SBA seated due to high pain level OT ADL-Dressing General Eval Upper Body Dressing Ability Moderate Assistance Lower Body Dressing Ability Minimal Assistance Areas Needing Assistance Pull-Over Shirt Underpants/Brief Pants/Shorts Socks Shoes Assistive Devices Dressing Assistive Devices Long Handled Shoe Horn Conduit Cleaner Sock Aid Comments OT Dressing Comments Provided education re: Lower body dressing sequence and body mechanics. Provided sock aid at pt request; she has other equipment. Pt has difficluty getting shirt over head due to neck pain. OT ADL-Toileting Comments OT Toileting Comments did not occur this session; provided education re: body mechanics during jose ramon care OT ADL-Bathing Bathing Type Bathing Type Sponge Bath General Evaluation Bathing Ability Moderate Assistance Areas Needing Assistance Wash/Dry Back Wash/Dry Lower Extremities Comments OT Bathing Comments Set pt up for shower but pain level too high and pt wanting to save energy for ride home; pt needed mod assist for seated sponge bath and max assist with shampoo cap seated in chair M7 OT- IP Mobility and Balance Start: 02/11/18 14:25 Freq: Status: Active Protocol: Document 02/13/18 11:26 PJM (Rec: 02/13/18 16:07 PJ [id number]) OT- Bed Mobility Assessment Rolling Type of Rolling Roll to Left Level of Assistance Standby Assistance Supine to Sit Supine to Sit Assist Standby Assistance Sit to Supine Sit to Supine Assist Minimal Assistance Scooting Scooting to Edge of Bed Standby Assistance OT-Transfer Assessment Sit to and From Stand Sit to and from Stand Standby Assistance Transfers Transfer Ability Standby Assistance Technique Transfer Destination Car Chair Transfer Technique Stand Step Pivot Devices Transfer Assistive Devices Gait Belt Front Wheeled Walker Comments Mobility Comments provided education re: car transfer technique OT- Gait Assessment Gait Gait Assistance Required: Standby Assistance Distance (Feet) 15 Assistive Devices Assistive Device Gait Belt Front Wheeled Walker OT- Balance Assessment Sitting Balance and Reactions Static Sitting Balance Ability Good Dynamic Sitting Balance Ability Good Standing Balance and Reactions Static Standing Balance Ability Good M9 OT- IP Assessment and Plan Start: 02/11/18 14:25 Freq: Status: Active Protocol: Document 02/13/18 11:26 PJM (Rec: 02/13/18 16:07 [facility] [id number]) OT Summary Assessment and Plan Summary OT Impairments Pain Functional Mobility Grooming Dressing Toileting Bathing Toilet Transfers Shower Transfers Progress Towards Goals Safe For Discharge Goals Met Assessment Summary Pt making slow daily progress due to high pain level which continues to limit activity tolerance. Pt performs self care tasks very slowly with frequent rest breaks required. This is pt's fourth C-spine surgery. She has good understanding of precautions, body mechanics and adapted ADLS. She plans to stay on main level of home, initially, and will sleep in recliner. She has BSC for use over toilet or next to chair at night. She will sponge bathe until able to go up full flight of stairs to only shower stall. will provide 24 hr assist at home PRN. NO further acute care OT services needed. Frequency of Treatment Frequency Of Treatment Discharge Discharge Recommendations OT Discharge Recommendations Home with 24/ Assist
[2018-02-13] MEDS: METHOCARBAMOL 500 MG TABLET 1000 MG PO (11:42)
--- NOTE | 2018-02-13 14:50 | PC.NURSE ---
Am shift Pt is continuing with pain control issues. Medicated with norco and vistaril BOSTON dressing changed per PA order. Pt is working with PT and will d/c later this afternoon. Private vehicle with home. FOllow up reviewed at length.
== END 2018-02-13 15:01 | disposition home or self-care (01) | DRG 472 ==
PROVIDERS: Admitting Provider Orthopaedic Surgery; PCP Physician Assistant; Visit Provider Orthopaedic Surgery
PROC: 0RG20K1 Fusion of 2 or more Cervical Vertebral Joints with Nonautologous Tissue Substitute, Posterior Approach, Posterior Column, Open Approach (ICD-10-PCS; principal; 2018-02-10 07:45)
DX: M48.02 Spinal stenosis, cervical region (principal); M96.0 Pseudarthrosis after fusion or arthrodesis; S16.1XXD Strain of muscle, fascia and tendon at neck level, subsequent encounter; Z98.1 Arthrodesis status; M54.12 Radiculopathy, cervical region
CPT/HCPCS: 72050; 76001; 85014; 85018; 94760; 97116; 97162; 97165; 97530; 97535; C1776; C9290; J0690; J1100; J2060; J2250; J2270; J2405; J2704; J3010

== ENCOUNTER → 2019-02-03 12:02 | Outpatient (CLI) | payer OTHER, SELFPAY ==
[2018-02-10 14:40] VITALS: BMI 29.9
--- NOTE | 2019-02-03 | DI.MG.S_ITS ---
BILATERAL DIGITAL SCREENING MAMMOGRAM 3D/2D WITH CAD: 02/03/2019 CLINICAL: Routine screening. Family history of breast cancer. Comparison is made to exams dated: 11/14/2006 mammogram and 11/15/2005 mammogram - [facility]. The tissue of both breasts is predominantly fatty. Current study was also evaluated with a Computer Aided Detection (CAD) system. No significant masses, calcifications, or other findings are seen in either breast. There has been no significant interval change. IMPRESSION: NEGATIVE There is no mammographic evidence of malignancy. A 1 year screening mammogram is recommended. This exam was interpreted at Station ID: [id number]. NOTE: For mammograms, a report in lay terms will be sent to the patient. Approximately 15% of breast malignancies will not be visualized mammographically. In the management of a palpable breast mass, a negative mammogram must not discourage biopsy of a clinically suspicious lesion. Electronically Signed By: Zoey hinds/navdeep:02/03/2019 14:21:48 letter sent: Normal Exam ACR BI-RADS Category 1: Negative [id number]
== END ==
PROVIDERS: PCP Family Medicine; Visit Provider Family Medicine
DX: Z12.31 Encounter for screening mammogram for malignant neoplasm of breast (principal); Z80.3 Family history of malignant neoplasm of breast
CPT/HCPCS: 77063; 77067

== ENCOUNTER → 2019-03-05 13:52 | Outpatient (CLI) | payer OTHER, SELFPAY ==
[2018-02-10 14:40] VITALS: BMI 29.9
== END ==
PROVIDERS: PCP Family Medicine; Visit Provider Family Medicine
DX: M81.0 Age-related osteoporosis without current pathological fracture (principal); Z78.0 Asymptomatic menopausal state; Z82.62 Family history of osteoporosis
CPT/HCPCS: 77080

== ENCOUNTER 2019-03-22 11:00 | Emergency (ER) | payer OTHER, SELFPAY ==
[2018-02-10 14:40] VITALS: BMI 29.9
[2019-03-22 11:07] VITALS: BP 132/66; PULSE 82; RESP 16; TEMP 36.7; O2SAT 96; BMI 29.9
--- NOTE | 2019-03-22 11:36 | ED_ITS ---
HPI - Dental/Oral <Mariah AlexMIGUEL ANGELP-BC - Last Filed: 03/22/19 12:45> General Chief complaint: Dental/Oral Stated complaint: puffy left side of face Time Seen by Provider: 03/22/19 11:16 Source: patient and family Mode of arrival: Ambulatory Limitations: no limitations History of Present Illness HPI Narrative: The patient is a 69-year-old female nonsmoker with history of back pain and spinal stenosis who presents with a chief complaint of . The left side of my face is puffy she states that she has broken teeth and dental pain and has pain coming from her broken teeth and swelling coming from her broken teeth, left side of her face. She denies any fevers, sleeps she had slight nausea yesterday because she has a funny taste in her mouth coming from her tooth, no diarrhea or abdominal pain. Denies any chest pain or shortness of breath. She has not seen a dentist. She has not taken anything for the pain. She applied ice once yesterday. Related Data Home Medications Medication Instructions Recorded Confirmed acetaminophen 1,000 mg PO Q6H PRN 01/30/18 02/10/18 atorvastatin 40 mg PO DAILY 01/30/18 03/22/19 diphenhydramine HCl 50 mg PO Q4-6H PRN 01/30/18 02/10/18 omeprazole 20 mg PO BID #0 01/30/18 03/22/19 sumatriptan succinate 50 mg PO SEEINSTR PRN 01/30/18 03/22/19 zolpidem 10 mg PO BEDTIME PRN 01/30/18 03/22/19 gabapentin 1,200 mg PO TID 03/22/19 hydrocodone-acetaminophen 1 tab PO TID PRN 03/22/19 03/22/19 hydroxyzine pamoate [Vistaril] 25 mg PO QID PRN 03/22/19 03/22/19 methocarbamol 1,000 mg PO Q6H PRN 03/22/19 03/22/19 Previous Rx's Medication Instructions Recorded penicillin V potassium 500 mg PO QID #40 tab 03/22/19 Allergies Allergy/AdvReac Type Severity Reaction Status Date / Time azithromycin [AZITHROMYCIN] Allergy Severe HEADACHE, Verified 03/22/19 11:07 NAUSEA, Hives chocolate flavor Allergy Severe HEADACHE, Verified 03/22/19 11:07 [CHOCOLATE FLAVOR] HIVES corn [CORN] Allergy Severe HIVES, Verified 03/22/19 11:07 HEADACHE shrimp [SHRIMP] Allergy Severe SWELLING, Verified 03/22/19 11:07 HIVES, HEADACHE sulfanilamide Allergy Severe Eyes and Verified 03/22/19 11:07 throat swelling verapamil [VERAPAMIL] Allergy Severe NAUSEA, Verified 03/22/19 11:07 THROAT SWELLING, MOUTH GOES NUMB codeine [CODEINE] Allergy Mild HIVES, Verified 03/22/19 11:07 NAUSEA, HEADACHES iodine [IODINE] Allergy Mild HEADACHES, Verified 03/22/19 11:07 HIVES TOPICAL OK furosemide [FUROSEMIDE] Allergy Unknown UNKNOWN Verified 03/22/19 11:07 PER PT baclofen AdvReac Severe Headache Verified 03/22/19 11:07 meperidine [MEPERIDINE] AdvReac Severe NAUSEA Verified 03/22/19 11:07 nitrofurantoin AdvReac Severe Headache Verified 03/22/19 11:07 oxycodone [OXYCODONE] AdvReac Severe NAUSEA, Verified 03/22/19 11:07 HEADACHE topiramate [From Topamax] AdvReac Severe Nose goes Verified 03/22/19 11:07 numb, hair falls out cetirizine [From Zyrtec] AdvReac Intermediate Headache Verified 03/22/19 11:07 garlic AdvReac Intermediate HEADACHE; Verified 03/22/19 11:07 OTHER SPICES TOO hydromorphone [From DILAUDID] AdvReac Intermediate VOMITING Verified 03/22/19 11:07 nortriptyline AdvReac Intermediate Headache Verified 03/22/19 11:07 onion AdvReac Intermediate HEADACHE Verified 03/22/19 11:07 eggs AdvReac Intermediate Hives, Uncoded 03/22/19 11:07 headaches Review of Systems <LISA Sal-BC - Last Filed: 03/22/19 12:45> Review of Systems Narrative: GENERAL: Denies chills, fatigue, malaise, fever, sweats. HEENT: See HPI RESPIRATORY: Denies dyspnea, cough, wheezing, hemoptysis, sputum. CARDIOVASCULAR: Denies chest pain, palpitations, orthopnea, edema, GASTROINTESTINAL: Denies nausea, vomiting, abdominal pain, diarrhea, constipation, melena. : Denies dysuria, frequency, incontinence, hematuria, urinary retention. MUSCULOSKELETAL: denies weakness, joint pain, or bony pain SKIN: Denies rash, skin lesions, or other NEUROLOGIC: Denies weakness, headache, numbness, change in speech, confusion, seizures, incoordination. PSYCHIATRIC: No concerning psychosocial issues. 12 point review of systems is negative except for those stated above Patient History <LEAH Sal - Last Filed: 03/22/19 12:45> Medical History Anemia (Acute) Anxiety (Acute) Arthritis (Acute) Asthma (Acute) Cervical strain (Acute) Chronic pain (Acute) Constipation (Acute) Depression (Acute) Environmental allergies (Acute) History of migraine (Acute) History of stomach ulcers (Acute) Impaired vision (Acute) Neck pain (Acute) Numbness and tingling in left arm (Acute) Pain in both upper arms (Acute) Postmenopausal (Acute) Sinus drainage (Acute) Strain of left rotator cuff capsule (Acute) Stroke (Acute) Surgical History H/O hand surgery (Acute) History of back surgery (Acute) History of laminectomy (Acute) History of tonsillectomy (Acute) Status post cervical spinal fusion (Acute) Status post epidural steroid injection (Acute) Social History household members: spouse Smoking Status: Never smoker alcohol intake: current alcohol intake frequency: holidays/special occasions only Substance Use Type: does not use and prescription drug Exam <LEAH Sal - Last Filed: 03/22/19 12:45> Narrative Exam Narrative: GENERAL: This is a well-nourished, well-developed patient, in no acute distress HEAD: Atraumatic. Normocephalic. No temporal or scalp tenderness. Slight swelling noted left upper lip EYES: Pupils equal round and reactive. Extraocular motions intact. No scleral icterus. No injection or drainage. ENT: Nose without bleeding, purulent drainage or septal hematoma. Throat without erythema, tonsillar hypertrophy or exudate. Uvula midline. Airway patent. Very poor dentition noted. Upper left canine noted to be broken, surrounding erythema, no palpable abscess. NECK: Trachea midline. No JVD or lymphadenopathy. Supple, nontender, no meningeal signs. CARDIOVASCULAR: Regular rate and rhythm RESPIRATORY: Clear to auscultation. Breath sounds equal bilaterally. No wheezes, rales, or rhonchi. No cough. No increased respiratory effort. No accessory muscle use. GASTROINTESTINAL: Abdomen soft, non-tender, nondistended. No hepato- splenomegaly, or palpable masses. No guarding. EXTREMITIES: No clubbing, cyanosis, or edema. No joint tenderness, effusion, or edema noted. BACK: Nontender without deformity or crepitance. No flank tenderness. NEURO: AOx3. SKIN: No rash or erythema or ecchymosis and visible skin. No overlying erythema noted on upper lip or left side of face. Initial Vital Signs Initial Vital Signs: Vital Signs Temperature 98.0 F 03/22/19 11:07 Pulse Rate 82 03/22/19 11:07 Respiratory Rate 16 03/22/19 11:07 Blood Pressure 132/66 03/22/19 11:07 Pulse Oximetry 96 03/22/19 11:07 <Margo Arias MD - Last Filed: 03/22/19 13:35> Initial Vital Signs Initial Vital Signs: Vital Signs Temperature 98.0 F 03/22/19 11:07 Pulse Rate 82 03/22/19 11:07 Respiratory Rate 16 03/22/19 11:07 Blood Pressure 132/66 03/22/19 11:07 Pulse Oximetry 96 03/22/19 11:07 Course <LEAH Sal - Last Filed: 03/22/19 12:45> Vital Signs Vital signs: Vital Signs - 8 hr 03/22/19 11:07 Temperature 98.0 F Pulse Rate 82 Respiratory Rate 16 Blood Pressure 132/66 Pulse Oximetry 96 <Margo Arias MD - Last Filed: 03/22/19 13:35> Vital Signs Vital signs: Vital Signs - 8 hr 03/22/19 11:07 Temperature 98.0 F Pulse Rate 82 Respiratory Rate 16 Blood Pressure 132/66 Pulse Oximetry 96 MDM - Dental/Oral <LEAH Sal - Last Filed: 03/22/19 12:45> MDM Narrative Medical decision making narrative: The patient is a 69-year-old female who presents with swelling of the left side of her face, and concern for dental infection. Exam indicates dental infection. She has no signs of systemic illness, no fever, tachycardia etc. I encouraged her to follow up with primary care provider as well as her dentist. Encouraged ice and [id number] measures as needed and able. Started on penicillin for dental infection. Discussed taking it with a probiotic or yogurt. Encourage PCP follow-up, encourage coming back to the emergency department for any acute concerns but stressed dental follow-up. Patient has been of no questions or concerns upon discharge and state understanding of return precautions as well as follow-up care. Discharge Plan Departure Patient Disposition: Home Clinical Impression: Dental infection Discharge Date/Time: 03/22/19 11:50 Instructions: Tooth Abscess, DI for Dental Pain Activity Restrictions/Additional Instructions: I sent a prescription for an antibiotic to [facility]. Please use ice, [id number] medications as needed and able. It is very important that you follow-up with dentist as well as her primary care provider. Please monitor for fevers inability keep down fluids, signs of worsening infection. Please be evaluated if any of these occur. Please come back to the emergency department for any acute concerns. Prescriptions: New penicillin V potassium 500 mg tablet 500 mg PO QID Qty: 40 RF: 0 No Action atorvastatin 40 mg Tablet 40 mg PO DAILY RF: 0 sumatriptan succinate 100 mg Tablet 50 mg PO SEEINSTR PRN (Reason: Migraine Headache) RF: 0 diphenhydramine HCl 25 mg Capsule 50 mg PO Q4-6H PRN (Reason: Allergies) RF: 0 acetaminophen 500 mg Capsule 1,000 mg PO Q6H PRN (Reason: Pain) RF: 0 omeprazole 20 mg Tablet,Delayed Release (Dr/Ec) 20 mg PO BID Qty: 0 RF: 0 zolpidem 10 mg Tablet 10 mg PO BEDTIME PRN (Reason: Sleep) RF: 0 methocarbamol 500 mg tablet 1,000 mg PO Q6H PRN (Reason: Spasms) RF: 0 gabapentin 600 mg tablet 1,200 mg PO TID RF: 0 hydrocodone-acetaminophen 5-325 mg tablet 1 tab PO TID PRN (Reason: pain) RF: 0 hydroxyzine pamoate [Vistaril] 25 mg capsule 25 mg PO QID PRN (Reason: Muscle Spasm) RF: 0 Referrals: Elijah Robert MD [Primary Care Provider] -
== END 2019-03-22 11:50 | disposition home or self-care (01) ==
PROVIDERS: Emergency Provider Nurse Practitioner Family; PCP Family Medicine
DX: K04.7 Periapical abscess without sinus (principal)
CPT/HCPCS: 99282; 99283

== ENCOUNTER 2019-07-02 12:36 | Day surgery (SDC) | payer OTHER, SELFPAY ==
[2018-02-10 14:40] VITALS: BMI 29.9
[2019-07-02] VITALS (7 sets, daily range): BP systolic 93–128; BP diastolic 49–78; PULSE 66–88; RESP 9–20; TEMP 36.7–36.8; O2SAT 98–100; BMI 29.9
--- NOTE | 2019-07-02 12:43 | PM.HP.1 ---
History of Present Illness History of Present Illness Date Patient Seen: 07/02/19 Chief complaint: [id number] COLONOSCOPY/EGD Narrative: 69 Years Old Female comes in today for consideration of a diagnostic EGD and screening colonoscopy. She does have a history of a bleeding gastric ulcer, controlled with omeprazole. Reports that she had an EGD approximately 12 years ago and was told that she had multiple bleeding ulcers and was placed on omeprazole at that time. She avoids spicy foods and alcohol and controls symptoms with omeprazole. Has not had a surveillance EGD. There have been no lower GI symptoms suggesting disease such as change in bowel habits, bleeding, abdominal pain or anemia. There's been no family history of colon cancer or colon polyps. Overall health issues have been stable, including no major cardiac events for at least 6 weeks. Current Medications (verified): 1) Atorvastatin Calcium 40 Mg Oral Tablet (Atorvastatin Calcium) .... Take 1 tablet by mouth daily for cholesterol control. 2) Omeprazole 20 Mg Oral Capsule Delayed Release (Omeprazole) .... Take one capsule twice a day 30 minutes before first meal of the day, for stomach acid suppression. 3) Gabapentin 600 Mg Oral Tablet (Gabapentin) .... Take 2 tablets by mouth three times daily for pain 4) Sumatriptan Succinate 100 Mg Oral Tablet (Sumatriptan Succinate) .... Take 1/2 tablet at onset of migraine headache. May repeat in 2 hours. Maximum 2 doses in 24 hours. 5) Hydroxyzine Hcl 25 Mg Oral Tablet (Hydroxyzine Hcl) .... Take 1 tablet 4 times daily. May be sedating. 6) Methocarbamol 500 Mg Oral Tablet (Methocarbamol) .... 2 tablets by mouth every 6 hours as needed pain or muscle spasm 7) Zolpidem Tartrate 10 Mg Oral Tablet (Zolpidem Tartrate) .... one tablet at bedtime as needed for insomnia 8) Hydrocodone-Acetaminophen 5-325 Mg Oral Tablet (Hydrocodone-Acetaminophen) .... Take 1 tablet by mouth every 8 hours as needed for pain. May be sedating. 9) Loratadine 10 Mg Oral Tablet (Loratadine) .... Take one by mouth every day for allergies. 10) Diphenhydramine Hcl 25 Mg Oral Tablet (Diphenhydramine Hcl) .... Take 1 twice a day as needed 11) Tylenol Extra Strength 500 Mg Oral Tablet (Acetaminophen) .... 2 tablets once a day as needed Allergies (verified): No Known Drug Allergies Past Medical History: Menopausal HYPERLIPIDEMIA INSOMNIA Bleeding gastric ulcer Spinal stenosis of cervical spine MIGRAINE Hay fever ASTHMA, MILD INTERMITTENT Past Surgical History: Tonsillectomy Neck surgery for spinal stenosis (2008, 2011,2014, 2018) Colonoscopy, 2006 (?), reportedly normal EGD, 2006 (?), bleeding ucler Family History: Reviewed history from 12/15/2018 and no changes required: Father: asthma, suicide Mother: substance abuse, elevated cholesterol, osteoporosis, stroke Siblings: substance abuse, asthma, colon cancer, high cholesterol Children: Son Hardik is alcholoic and suicidal occasionally Social History: Reviewed history from 12/15/2018 and no changes required: Marital Status: Children: Occupation: retired Household Members: Naseem (01/01/51) Education: Patient History Family & Social History Social History: household members spouse Tobacco & Substance use: Smoking Status Never smoker alcohol intake current alcohol intake frequency holiday/special occasion Substance Use Type does not use,prescription drug Meds Home Medications and Allergies Home Medications Medication Instructions Recorded Confirmed Type acetaminophen 1,000 mg PO Q6H PRN 01/30/18 02/10/18 History atorvastatin 40 mg PO DAILY 01/30/18 03/22/19 History diphenhydramine HCl 50 mg PO Q4-6H PRN 01/30/18 02/10/18 History omeprazole 20 mg PO BID #0 01/30/18 03/22/19 History sumatriptan succinate 50 mg PO SEEINSTR PRN 01/30/18 03/22/19 History zolpidem 10 mg PO BEDTIME PRN 01/30/18 03/22/19 History gabapentin 1,200 mg PO TID 03/22/19 History hydrocodone-acetaminophen 1 tab PO TID PRN 03/22/19 03/22/19 History hydroxyzine pamoate [Vistaril] 25 mg PO QID PRN 03/22/19 03/22/19 History methocarbamol 1,000 mg PO Q6H PRN 03/22/19 03/22/19 History penicillin V potassium 500 mg PO QID #40 tab 03/22/19 Rx Allergies Allergy/AdvReac Type Severity Reaction Status Date / Time azithromycin [AZITHROMYCIN] Allergy Severe HEADACHE, Verified 03/22/19 11:07 NAUSEA, Hives chocolate flavor Allergy Severe HEADACHE, Verified 03/22/19 11:07 [CHOCOLATE FLAVOR] HIVES corn [CORN] Allergy Severe HIVES, Verified 03/22/19 11:07 HEADACHE shrimp [SHRIMP] Allergy Severe SWELLING, Verified 03/22/19 11:07 HIVES, HEADACHE sulfanilamide Allergy Severe Eyes and Verified 03/22/19 11:07 throat swelling verapamil [VERAPAMIL] Allergy Severe NAUSEA, Verified 03/22/19 11:07 THROAT SWELLING, MOUTH GOES NUMB codeine [CODEINE] Allergy Mild HIVES, Verified 03/22/19 11:07 NAUSEA, HEADACHES iodine [IODINE] Allergy Mild HEADACHES, Verified 03/22/19 11:07 HIVES TOPICAL OK furosemide [FUROSEMIDE] Allergy Unknown UNKNOWN Verified 03/22/19 11:07 PER PT baclofen AdvReac Severe Headache Verified 03/22/19 11:07 meperidine [MEPERIDINE] AdvReac Severe NAUSEA Verified 03/22/19 11:07 nitrofurantoin AdvReac Severe Headache Verified 03/22/19 11:07 oxycodone [OXYCODONE] AdvReac Severe NAUSEA, Verified 03/22/19 11:07 HEADACHE topiramate [From Topamax] AdvReac Severe Nose goes Verified 03/22/19 11:07 numb, hair falls out cetirizine [From Zyrtec] AdvReac Intermediate Headache Verified 03/22/19 11:07 garlic AdvReac Intermediate HEADACHE; Verified 03/22/19 11:07 OTHER SPICES TOO hydromorphone [From DILAUDID] AdvReac Intermediate VOMITING Verified 03/22/19 11:07 nortriptyline AdvReac Intermediate Headache Verified 03/22/19 11:07 onion AdvReac Intermediate HEADACHE Verified 03/22/19 11:07 eggs AdvReac Intermediate Hives, Uncoded 03/22/19 11:07 headaches Review of Systems Review of Systems ROS: Yes All systems reviewed with the patient and are negative except as otherwise documented Exam Narrative Exam Narrative: General: Alert and oriented, appearing stated age and in no acute distress. Head: Head normocephalic/atraumatic. Neck: Neck soft and supple, no lymphadenopathy. Lungs: Clear to auscultation bilaterally, no wheezes, rhonchi or rales. Heart: Normal S1 and S2 with regular rate and rhythm, no audible murmurs, rubs or gallops. Abdomen: Soft, non-tender, non-distended, no organomegaly. Possitive bowel sounds. Psych: Alert and oriented x 3. Assessment & Plan Assessment & Plan narrative: Problem # 1: Screening for colon cancer 1. Colonoscopy The nature and character of the procedure as well as anticipated results were discussed. The possibility of not completing the procedure was also discussed. Possible complications including aspiration pneumonia, bleeding, perforation and reaction to medications either for sedation or preparation and missed lesions were discussed. Questions were answered and proceeding to the colonoscopy was elected. Informed consent signed. I sincerely appreciate the referral allowing me to participate in this patient's care. Please contact me with any questions or concerns. Problem # 2: Bleeding gastric ulcer 1. Diagnostic EGD The nature and character of the procedure as well as anticipated results were discussed. The possibility of not completing the procedure was also discussed. Possible complications including aspiration pneumonia, bleeding, perforation and reaction to medications either for sedation or preparation and missed lesions were discussed. Questions were answered and proceeding to the colonoscopy was elected. Informed consent signed.
--- NOTE | 2019-07-02 12:45 | PM.OP.ENDO ---
Operative Date/Time/Diagnoses Date of procedure: 07/02/19 Pre-op diagnosis: 1. Bleeding gastric ulcer Procedure & Clinicians Study performed: EGD Same procedure as scheduled: Yes Indications: Bleeding gastric ulcer Surgeon: Hanna Whitley Procedure Notes Procedure in detail: ENDOSCOPIST: Hanna Whitley MD Sedation RN: Sedation start time: Sedation end time: PROCEDURE: EGD with biopsy REFERRING PROVIDER: Dr. Robert INDICATIONS: 1. Bleeding gastric ulcer MEDICATION: Incremental doses of Versed and fentanyl until an appropriate level of sedation was achieved. ASA Rating: [] DURATION OF PROCEDURE: minutes. COMPLICATIONS: None. LIMITATIONS: None EXTENT OF PROCEDURE: Third portion of the Duodenum. PROCEDURE: The high-definition gastroduodenoscope was introduced into the posterior oropharynx under direct vision after Hurricaine spray, noted IV sedation, and proper informed consent. The esophagus was identified and intubated under direct visualization. The scope was quickly passed through the esophagus and into the fundus of the stomach. A clear fundal pool was aspirated. The scope was then advanced to the antrum and the pylorus was identified. The scope was passed through the pylorus into the second and third portions of the duodenum. No abnormalities were noted in the duodenum, duodenal bulb or pyloric channel. [] The antrum []. J maneuver was produced. No abnormalities were noted of the proximal body, fundus or cardia. No hiatal hernia was noted. Scope was broken out of the J maneuver and the remainder of the stomach was carefully inspected upon withdrawal and was normal. The stomach was carefully deflated of all air on withdrawal. The distal esophagus was carefully inspected and []. The remainder of the esophagus was normal upon withdrawal. The larynx and vocal cords appeared to be unremarkable. IMPRESSION: 1. [] PLAN: 1. [] The possibility of missed lesion including a malignancy was discussed prior with the patient. Potential alarm symptoms have been discussed and should be reported by the patient immediately.
--- NOTE | 2019-07-02 12:46 | PM.OP.ENDO ---
Operative Date/Time/Diagnoses Date of procedure: 07/02/19 Time of procedure: 14:00 Pre-op diagnosis: 1. Screening for colon cancer Post-op diagnosis: other (Normal colonoscopy) Procedure & Clinicians Study performed: Colonoscopy Same procedure as scheduled: Yes Indications: Screening for colon cancer Surgeon: Hanna Whitley Procedure Notes SCOAP/Timeout: 14:00 Procedure in detail: ENDOSCOPIST: Hanna Whitley MD Sedation RN: Rufina Lock RN Sedation start time: 2:00 p.m. Sedation end time: 2:30 p.m. PROCEDURE: Colonoscopy INDICATIONS: 1. Screening for colon cancer MEDICATION: Levsin 0.125 mg sublingual, incremental doses of Versed and fentanyl until appropriate level sedation achieved. ASA CLASS: 2 CECAL WITHDRAWAL TIME: 7 minutes COMPLICATIONS: None. EXTENT OF PROCEDURE: Cecum. QUALITY OF PREP: Good with portions of liquid stool. PROCEDURE: Prior to insertion of the colonoscope, a digital rectal examination was accomplished with circumferential palpation of the distal rectal mucosa without significant findings being noted. The high-definition colonoscope was passed into the rectum in the usual fashion and advanced over to the cecum without difficulty. The ileocecal valve, appendiceal stoma, and medial wall all could be inspected and no abnormalities were seen. ASCENDING COLON: As the colonoscope was withdrawn, care was taken to expose and inspect the haustral folds and no abnormalities were seen. HEPATIC FLEXURE: Normal no polyps, diverticula or other abnormalities. TRANSVERSE COLON: Normal no polyps, diverticula or other abnormalities. DESCENDING COLON: Normal no polyps, diverticula or other abnormalities. SIGMOID COLON: Normal no polyps, diverticula or other abnormalities. RECTUM: Normal. J maneuver was produced. There was no significant perianal disease. The J maneuver was broken. The remainder of the rectum was inspected and there was no external hemorrhoid disease. The scope was withdrawn. IMPRESSION: 1. Normal colonoscopy PLAN: 1. Repeat colonoscopy in 10 years. The possibility of a missed lesion including a malignancy has been discussed with the patient previously. Potential alarm symptoms have been discussed and should be reported immediately. Scope withdrawal time: 7 Sedation minutes: 30 Specimen(s): none sent Complications: none Impression: As above Post-procedure Recommendations: Colonscopy in 10 years Follow up: as needed Disposition: PACU
[2019-07-02] MEDS: SODIUM CHLORIDE 0.9% 1,000 ML 200 ML IV (12:52)
[2019-07-02] MEDS: HYOSCYAMINE 0.125 MG TABLET PO (12:55)
[2019-07-02] MEDS: MIDAZOLAM 5 MG/5 ML VIAL IV (14:28)
[2019-07-02] MEDS: fentaNYL 250 MCG/5 ML INJ IV (14:28)
== END 2019-07-02 15:23 | disposition home or self-care (01) ==
PROVIDERS: PCP Family Medicine; Referring Provider Student in an Organized Health Care Education/Training Program; Visit Provider Student in an Organized Health Care Education/Training Program
PROC: 0DJD8ZZ Inspection of Lower Intestinal Tract, Via Natural or Artificial Opening Endoscopic (ICD-10-PCS; CPT 45378; 2019-07-02 14:00)
DX: Z12.11 Encounter for screening for malignant neoplasm of colon (principal)
CPT/HCPCS: G0121; J2250; J3010

== ENCOUNTER → 2019-09-14 15:14 | Outpatient (CLI) | payer OTHER, SELFPAY ==
[2018-02-10 14:40] VITALS: BMI 29.9
--- NOTE | 2019-09-14 | DI.RAD.S_ITS ---
PROCEDURE: XR SHOULDER LT MIN 2V INDICATIONS: left shoulder pain TECHNIQUE: 3 views of the shoulder were acquired. COMPARISON: None. FINDINGS: Bones: No fractures or dislocations. No suspicious bony lesions. Visualized ribs appear intact. Left shoulder joint degeneration. Scattered degenerative subchondral sclerosis and spurring. Soft tissues: No suspicious soft tissue calcifications. IMPRESSION: Left shoulder joint degeneration Dictated by: Silvino Amaral M.D. on 09/14/2019 at 15:47 Approved by: Silvino Amaral M.D. on 09/14/2019 at 15:51
== END ==
PROVIDERS: PCP Family Medicine; Referring Provider Family Medicine; Visit Provider Family Medicine
DX: M25.512 Pain in left shoulder (principal); M19.012 Primary osteoarthritis, left shoulder
CPT/HCPCS: 73030

== ENCOUNTER → 2019-12-01 11:02 | Outpatient (CLI) | payer OTHER, SELFPAY ==
[2018-02-10 14:40] VITALS: BMI 29.9
--- NOTE | 2019-12-01 11:11 | DI.CT.S_ITS ---
PROCEDURE: CT CERVICAL SPINE WO CON INDICATIONS: Spinal stenosis, cervical region TECHNIQUE: Noncontrast 3 mm thick sections acquired from the skull base to the T4 level. Sagittal and coronal reformats were then constructed. For radiation dose reduction, the following was used: automated exposure control, adjustment of mA and/or kV according to patient size. COMPARISON: [facility] [place], CR, XR CERVICAL SPINE 2 OR 3 VIEWS, 11/02/2018, 10:15. [facility], CT, CT CERVICAL SPINE WO CON, 12/19/2017, 10:31. [facility], CT, C-SPINE WITHOUT CONTRAST, 04/25/2015, 12:07. FINDINGS: Image quality: Excellent. Bones: No fractures or dislocations. Visualized superior ribs are intact. 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 The degree of disc space height reduction at C3-4 is unchanged, and indicates presence of mild degenerative disc disease at this level. Similarly the disc height reduction at C4-C5 is stable over time. Interbody disc fixation has been performed at C5-6 and C6-7 by stable appearing fixation devices, showing no evidence of disruption. There is what appears to be osseous fusion at C6-7 but absence of fusion at C5-6. Small posterior projecting osteophytes are seen at C3-4, C5-6, and C6-7. Facet joint fixation devices are noted bilaterally at C4-5, C5-6, and C6-7. Asymmetric fixation plating over the spinal canal is identified on the left at C4, C5, C6, and C7. Significant foraminal stenosis is seen bilaterally from C3 through C7. Soft tissues: Prevertebral soft tissues are normal in thickness. No paravertebral hematomas. No apical pneumothoraces. IMPRESSION: Extensive prior spine fusion both anteriorly and posteriorly. Apparent absence of osseous fusion at C5-6 vertebral disc space. 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 No acute disease is found. Currently no definite spinal stenosis is seen along the operative region. C3 through C7 symmetric foraminal stenosis, degenerative in origin. Dictated by: Roger Weiss M.D. on 12/01/2019 at 12:05 Approved by: Roger Weiss M.D. on 12/01/2019 at 12:14
== END ==
PROVIDERS: PCP Family Medicine; Referring Provider Orthopaedic Surgery; Visit Provider Orthopaedic Surgery
DX: M48.02 Spinal stenosis, cervical region (principal); M50.31 Other cervical disc degeneration, high cervical region; Z98.1 Arthrodesis status
CPT/HCPCS: 72125

== ENCOUNTER → 2020-05-16 09:33 | Outpatient (CLI) | payer OTHER, SELFPAY ==
[2020-05-11 09:34] VITALS: BMI 29.9
[2020-05-16 10:25] LABS: Add Manual Diff / Slide Review NO; Basophils Absolute Auto 0 /uL (0-100); Basophils Percent Auto 0.6 % (0-2); Eosinophils Absolute Auto 200 /uL (0-450); Eosinophils Percent Auto 3.1 % (2-4); Hematocrit 41.9 % (36-46); Hemoglobin 14.3 g/dL (12.0-16.0); Lymphocytes Absolute Auto 2400 /uL (1100-4500); Lymphocytes Percent Auto 33.7 % (25-40); Mean Corpuscular HGB Conc 34.1 % (30-36); Mean Corpuscular Hemoglobin 31.1 PG (26-34); Mean Corpuscular Volume 91.3 fL (80-100); Monocytes Absolute Auto 600 /uL (0-900); Neutrophils Absolute Auto 3900 /uL (1500-7000); Neutrophils Percent Auto 54.6 % (50-75); Platelet Count 248 X10^3/uL (150-400); Red Blood Cell Count 4.59 X10^6/uL (4.0-5.2); White Blood Cell Count 7.2 X10^3/uL (4.5-11.0)
[2020-05-16 10:43] LABS: BUN Creatinine Ratio 15.3 (6-22); Blood Urea Nitrogen 11 mg/dL (7-17); Calcium 9.8 mg/dL (8.4-10.2); Carbon Dioxide 25 mmol/L (22-32); Chloride 109 mmol/L (98-107); Estimated Glomerular Filt Rate > 60.0 mL/min (>60); Glucose 106 mg/dL (80-110); HEMOLYSIS 15 (0-50); Potassium 3.6 mmol/L (3.4-5.1); Sodium 141 mmol/L (137-145)
[2020-05-16 12:53] LABS: Hemoglobin A1C% w Est Avg Glu 5.4 % (4.0-6.0)
== END ==
LOC: LAB 09:34
PROVIDERS: PCP Family Medicine; Referring Provider Orthopaedic Surgery; Visit Provider Orthopaedic Surgery
DX: Z01.818 Encounter for other preprocedural examination (principal); Z01.812 Encounter for preprocedural laboratory examination; R73.9 Hyperglycemia, unspecified; M25.512 Pain in left shoulder
CPT/HCPCS: 36415; 80048; 83036; 85025; 93005; 93010

== ENCOUNTER → 2020-06-03 11:18 | Outpatient (CLI) | payer OTHER, SELFPAY ==
[2020-05-11 09:34] VITALS: BMI 29.9
[2020-06-03 14:42] LABS: COVID19 -Nasal RAPID Negative (Negative)
== END ==
PROVIDERS: PCP Family Medicine; Visit Provider Nurse Practitioner
DX: Z01.812 Encounter for preprocedural laboratory examination (principal); Z20.822 Contact with and (suspected) exposure to COVID-19
CPT/HCPCS: 87635

== ENCOUNTER 2020-06-05 06:18 | Inpatient (IN) | payer OTHER, SELFPAY ==
[2018-02-10 14:40] VITALS: BMI 29.9
[2020-05-11 09:34] VITALS: BMI 29.9
[2020-06-05] VITALS (13 sets, daily range): BP systolic 110–145; BP diastolic 67–89; PULSE 84–99; RESP 11–19; TEMP 35.8–36.6; O2SAT 89–99; BMI 32.3; BMI 33.3
--- NOTE | 2020-06-05 06:00 | DI.RAD.S_ITS ---
PROCEDURE: XR SHOULDER LT 1V INDICATIONS: post op films TECHNIQUE: One-view of the shoulder was acquired. COMPARISON: [facility] Outside Film, MR, MR SHOULDER LEFT WITHOUT CONTRAST, 09/24/2019, 11:41. FINDINGS: Bones: Postsurgical changes are seen from left shoulder arthroplasty. Hardware components are in expected positions. Metallic densities are seen projecting over the cervical spine, likely related to prior surgery. Soft tissues: No suspicious soft tissue calcifications. IMPRESSION: Status post left shoulder arthroplasty with expected postsurgical findings. Dictated by: Nahid Mejia M.D. on 06/05/2020 at 11:13 Approved by: Nahid Mejia M.D. on 06/05/2020 at 11:15
[2020-06-05] MEDS: PREGABALIN 75 MG CAPSULE PO (06:59)
[2020-06-05] MEDS: MELOXICAM 7.5 MG TABLET 15 MG PO (06:59)
[2020-06-05] MEDS: ACETAMINOPHEN 325 MG TABLET 975 MG PO (07:00)
[2020-06-05] MEDS: LACTATED RINGERS 1,000 ML 42 ML IV ×2 (07:10→09:37)
--- NOTE | 2020-06-05 07:35 | PM.PREOP ---
Pre-operative Note COVID-19 COVID-19 status: Negative Result date/Date tested (Pos, Neg/Pending): 06/03/20 Interval Note History & Physical reviewed/Exam performed by Physician: Yes Changes to H&P: No
[2020-06-05] MEDS: fentaNYL 100 MCG/2 ML INJ 50 MCG IV ×2 (07:36→07:40)
[2020-06-05] MEDS: MIDAZOLAM 2 MG/2 ML VIAL IV (07:36)
[2020-06-05] MEDS: CEFAZOLIN 2 GM/100 ML FROZ.PIGGY IV (07:53)
--- NOTE | 2020-06-05 07:56 | SUR.PREOP ---
Block start time [0736] . Monitoring initiated and maintained throughout procedure. Oxygen and medications given per anesthesiologist instructions. Patient remained stable throughout procedure, no adverse reactions noted. Block end time [0750].
[2020-06-05] MEDS: TRANEXAMIC ACID 1,000 MG VIAL 1000 MG INJ ×2 (08:00→09:36)
--- NOTE | 2020-06-05 08:30 | SUR.OPER ---
Beach chair with Schlein shoulder positioner. Lower body on padded OR bed. Head in foam padded head cradle, secured with straps. Non-operative arm secured <90 degrees abduction. Pillow under knees. Safety belt at thigh. Cloth tape over blanket over lower legs.
[2020-06-05] MEDS: BUPIVACAINE 0.5% W/ EPI (PF) 30 ML VIAL INJ (08:38)
[2020-06-05] MEDS: THROMBIN (RECOMBINANT) 5,000 UNIT VIAL 5000 UNIT TOP (08:40)
--- NOTE | 2020-06-05 09:57 | P.OP_ITS ---
Operative Date/Time/Diagnoses Date of procedure: 06/05/20 Time of procedure: 09:57 Pre-op diagnosis: Left shoulder osteoarthritis Post-op diagnosis: same Procedure & Clinicians Procedure: Left total shoulder replacement Same procedure as scheduled: Yes Indications: The patient has had progressively worsening left shoulder pain with radiographic changes consistent with arthritis. Non-operative management has failed and the patient has requested total shoulder replacement. The risks, benefits and alternatives to surgery were discussed with the patient prior to proceeding. Risks discussed included, but were not limited to, failure to relieve pain, stiffness, infection, nerve damage, deep venous thrombosis, pulmonary embolism, stroke, coma, heart attack, permanent paralysis and , as well as the potential need for eventual revision of the prosthetic. Surgeon: Ben Hughes Form Drafter: Max Teran Click Yes if Unassisted: No Anesthesia Type: General, Peripheral nerve block and Local Operative Notes Findings: Significant osteoarthritis with inferior osteophyte on the humerus. Closure Type: primary Specimen(s): none sent Prosthetic devices, grafts, tissues, transplants, or devices: Implants used in this procedure were manufactured by the [employer] and included a 46 mm pegged all polyethylene E +glenoid, a 46 x 16 mm neutral humeral head, and a canal sparing size 2 humeral stem and neck kit. The subscapularis was repaired using 4 [employer] Swivelock anchors. Applied: implant(s) Estimated Blood Loss (mL): 100 Blood products transfused: none Procedure in detail: The patient was seen in the pre-operative area, where the patient identified the left shoulder as the operative site and this was marked with my initials. The patient received pre-operative antibiotics, underwent an interscalene block, and was taken to the operating room and placed on the operative table in the supine position. After satisfactory anesthesia, a full ?time out? was performed. The patient was repositioned in the ?beach chair? position using a dedicated positioner. All pressure points were well padded, and the knees were slightly bent to prevent tension on the sciatic nerves. The left arm was prepared from the fingers to the base of the neck with ChloroPrep in the usual fashion and draped through sterile drapes. An approximately 15 cm incision was created, starting at the clavicle above the coracoid process and extended towards the deltoid insertion. The deltopectoral interval was used to access the shoulder. The cephalic vein was taken medially. A self retaining retractor was placed. The upper centimeter of the pectoralis major tendon was released. The ?three sisters? were identified and cauterized. The axillary nerve was palpated and protected throughout the case. The biceps was released from its groove and tenodesed over the top of the pectoralis major tendon. The subscapularis was released from the lesser tuberosity with a subscapularis peel and tagged for later repair. The shoulder was dislocated and a cutting guide was used for the proximal humeral osteotomy in 30 degrees of retroversion. The bone was tested by manual pressure with my thumb and confirmed that it was strong enough to use a stemless prosthesis. The humeral head was sized and the guide pin placed in the center of the proximal humerus. The humeral Reamer for the implant was used. We chose the appropriate size broach and this was impacted into position. A proximal humeral protector was then placed. We then removed the self-retaining retractor and placed retractors to access the glenoid. The subscapularis was released with a ?360 degree release? with care being taken to protect the axillary nerve with the inferior portion of this procedure. The remnant of labrum and biceps stump were removed. The appropriate size reamer was chosen with the glenoid sizer, and the guide pin placed. The glenoid was appropriately reamed. The guide for the peripheral holes was used and the center hole enlarged. The trial glenoid was placed with good stability. We then cemented the final implant into place after irrigating the peg holes and drying them with thrombin-soaked Gelfoam. We returned our attention to the humerus, a trial humeral head was applied and a trial reduction performed. Stability was checked with 50% posterior translation with spontaneous reduction, 45? external rotation at the side with the subscapularis held in the repaired position and 70? of internal rotation in the ?scared [place] position?. This was felt to be satisfactory and the appropriate implants were opened. The appropriate position for the anchors for a ventral subscapularis repair were marked on the humerus. The humeral prosthetic was impacted into the humerus. The humeral head was applied when the stem was still slightly proud and impacted to both seat the head and fully seat the stem. The joint was relocated one final time. The joint was irrigated and the subscapularis repaired using the ?speed bridge technique? using 4 Swivelock anchors. Two anchors were placed just off the osteotomy as a medial row and an additional 2 anchors were placed in the bicipital groove. The top of the subscapularis was closed to the leading edge of the supraspinatus with a figure of 8 #2 TiCron to close the rotator interval. The subscapularis was repaired in its anatomic position. The wound was copiously irrigated once again. The deltopectoral interval was closed with interrupted 0 Vicryl. The subcutaneous layer was closed with 3-0 Vicryl, and the skin with a running 3-0 V-Lock suture and Dermabond. An Aquacel Ag dressing was applied, the patient?s arm was placed in a sling, and the patient was taken to recovery having tolerated the procedure well. Complications: none Post-operative Condition: stable Disposition: PACU Plan for aftercare: The patient will be maintained on a standard total shoulder replacement protocol with passive range of motion limited to 90 degrees forward flexion, 0 degrees external rotation at the side, 0 degrees abduction and internal rotation to the body. The patient will receive aspirin and sequential compression devices for DVT prophylaxis. The patient will be discharged home when safe for the home environment, likely tomorrow.
--- NOTE | 2020-06-05 10:19 | SUR.PHASEI ---
Pt slow to wake, airway patent on own, nasal cannula added, now being weaned, Taking ice chips well.,
--- NOTE | 2020-06-05 10:28 | SUR.PHASEI ---
report called to todd Aldrich transported via bed on 02 nasal cannula.
--- NOTE | 2020-06-05 10:42 | SUR.PHASEI ---
Pt left with GIANNA Aldrich in stable condition.
[2020-06-05] MEDS: LACTATED RINGERS 1,000 ML 100 ML IV (10:44)
--- NOTE | 2020-06-05 11:37 | PC.NURSE ---
Addendum entered by Allie Rojas R.N. 06/05/20 14:30: Patient c/o a headache, given scheduled tylenol. Denies pain to left shoulder. Patient up with physical therapy,tolerated well. Original Note: Patient alert, oriented denies pain to left shoulder, radial pulse strong, extremity warm, sling on. Patient oriented to room and call light. SBA to bathroom, voided. Gait steady.
[2020-06-05] MEDS: ACETAMINOPHEN 325 MG TABLET 650 MG PO (14:15)
[2020-06-05] MEDS: GABAPENTIN 600 MG TABLET 1200 MG PO ×2 (14:18→21:00)
--- NOTE | 2020-06-05 14:39 | PT.IIE ---
Current Diagnoses Primary osteoarthritis, left shoulder (06/05/20) Surgery Performed Operation Date: 06/05/20 07:45 Actual Procedures p Total Shoulder Arthroplasty(Left) - Ben Hughes MD Surgical History (Last Updated 05/29/20 @ 12:59 by Jaja Anderson, RN) H/O hand surgery History of back surgery History of colonoscopy History of esophagogastroduodenoscopy (EGD) History of laminectomy History of tonsillectomy Status post cervical spinal fusion Status post epidural steroid injection Medical History (Last Updated 05/29/20 @ 13:12 by Jaja Anderson, RN) Anemia Anxiety Arthritis Asthma Asthma, mild intermittent Cervical strain Chronic pain Constipation Depression Environmental allergies Hay fever History of migraine History of stomach ulcers Hyperlipidemia Impaired vision Insomnia Left foot pain Migraine Neck pain Numbness and tingling in left arm Pain in both upper arms Postmenopausal Primary osteoarthritis, left shoulder Sinus drainage Strain of left rotator cuff capsule Stroke Physical Therapy Inpatient Evaluation/Re-Eval M1 PT/OT-IP Prior Functional Status Start: 06/05/20 12:27 Freq: NEEDED Status: Active Protocol: Document 06/05/20 14:39 AW (Rec: 06/05/20 15:08 AW [id number]) Medical Review Prior Functional Status Medical History Reviewed Yes Communication WNL. Pt is an effective verbal communicator. Mobility and Gait Pt briefly used a FWW after cervical surgery in January 2020 but has been indepedent without meaningful limit since that time. Activities of Daily Living and IADL's Pt reports difficulty with dressing tasks due to shoulder pain. I don't really wear a bra any more. Zippers and snaps on pants are too hard. I just wear pull on pants. She reports independence with showers and toileting. Prior Functional Level (Other details) Pt is right-handed Social History Household Members spouse Living Arrangements Apartment/Condo Number of Floors (Floors) Two Floors Number of Stairs To Enter/Railing? Pt lives in a duplex with level entrance. Once inside, she climbs 14 steps with R rail ascending to the bedroom level. Home Environment Standard Height Toilet,Tub/ Shower Home Equipment Front Wheel Walker,Straight Cane,Hand Held Shower,Remote Ruby On Rails Developer, Lift Recliner,Grab Bars Near Toilet,Grab Bars In Shower Employment Status Retired Additional Social History Comment Pt lives in [place] with her , Carlos. Her spouse will be available to assist as needed at discharge. M2 PT-IP Current Condition Start: 06/05/20 12:27 Freq: NEEDED Status: Active Protocol: Document 06/05/20 14:39 AW (Rec: 06/05/20 15:08 AW [id number]) Physical Therapy Current Condition Current Condition Evaluation Date 06/05/20 Treatment Diagnosis L TSA; decreased independence with ADL's Onset Date 06/05/20 Precautions Shoulder Precautions Sling,PROM,Internal Rotation to Body,No External Rotation, No Abduction,Forward Flexion to 90 degrees,Pendulums M3 PT-IP Subjective Start: 06/05/20 12:27 Freq: NEEDED Status: Active Protocol: Document 06/05/20 14:39 AW (Rec: 06/05/20 15:08 AW [id number]) Subjective Physical Therapy Visit Type Type Initial Evaluation Visit Start Time 13:15 Visit Stop Time 13:38 Total Visit Minutes 23 Physical Therapy Visit Comments Patient Comments Pt is willing to participate with PT Patient Goals Return home with spouse support. Return to gardening. Therapy Pain Assessment Pain When Pain Assessed During Mobility Pain Present Pain Present Denied Pain M4 PT-IP Mobility and Gait Start: 06/05/20 12:27 Freq: NEEDED Status: Active Protocol: Document 06/05/20 14:39 AW (Rec: 06/05/20 15:08 AW [id number]) PT-Bed Mobility Assessment Supine to Sit Supine to Sit Contact Guard Assistance,Head of Bed Elevated,Bedrails Sit to Supine Sit to Supine Standby Assistance Scooting Scooting to Edge of Bed Standby Assistance PT-Transfer Assessment Sit to and From Stand Sit to and from Stand Independent Equipment Transfer Assistive Device Gait Belt Orthotic/Prosthetic Devices or Brace: Yes Transfers Transfer Destination Bed,Toilet Transfer Technique Stand Step Pivot Transfer Ability Level of Assist Contact Guard Assistance Comments Mobility Comments Pt was lying in bed as PT arrived. BP was 127/73 HR 90 at rest. She stated she bought a lift recliner that will stay downstairs and she plans to sleep in it the first few nights at home. With HOB elevated, pt needed CGA for supine to sit. She sat EOB with good balance before standing without device SBA. She ambulated to the sink for teaching on optimal sling fit before walking around the room ~40 feet. She then transferred to the toilet using R side grab bar CGA. She required assist to pull her undergarments back up after voiding. Pt then walked to the sink and washed her right hand before transferring back to bed SBA. Bed alarm was turned on for safety and pt was left with all needs and call light in reach. Gait Assessment Gait Gait Assistance Required: Standby Assistance,Contact Guard Assist Distance (Feet) 40 Assistive Devices Assistive Device Gait Belt Orthotic/Prosthetic Devices or Brace: Yes Gait Deviations General Gait Pattern Decreased Stride Length, Decreased Feet Clearance Factors Limiting Gait Function Factors Limiting Gait Function Decreased Activity Tolerance Comments Gait Comments Pt was somewhat sleepy and needed occasional CGA for steadiness. Stair Climbing Assessment Comments Stair Climbing Comments Not assessed at evaluation. PT-Balance Assessment Sitting Balance and Reactions Static Sitting Balance Ability Good Dynamic Sitting Balance Ability Good Standing Balance and Reactions Static Standing Balance Ability Good Dynamic Standing Balance Ability Good Device Used no AD M5 PT-IP Objective Assessments Start: 06/05/20 12:27 Freq: NEEDED Status: Active Protocol: Document 06/05/20 14:39 AW (Rec: 06/05/20 15:08 AW [id number]) Orientation Orientation/Cognition Level of Alertness Alert Orientation Name,Day of Week,Place, Situation Language Function Ability No Deficits Noted Safety Awareness Understands Safety Issues Memory Description No Deficits Noted Gross Range of Motion Upper Extremity ROM Assessment Left Impaired Lower Extremity ROM Assessment Within Functional Limits Strength Upper Extremity Strength Assessment Left Impaired Lower Extremity Strength Assessment Within Functional Limits Sensation Assessment Sensation Gross Sensation Left UE Impaired Light Touch Impaired Proprioception (Position) Impaired Sensation Description Numbness Comments Sensation Comments Slight sensation returning to lateral shoulder and proximal arm but completely numb distal to the elbow. M6 PT-IP Treatment Start: 06/05/20 12:27 Freq: NEEDED Status: Active Protocol: Document 06/05/20 14:39 AW (Rec: 06/05/20 15:08 AW [id number]) Physical Therapy Treatment Exercises Exercises Elbow Flexion/Extension,Wrist ROM,Hand ROM Education Education Provided Precautions,Post-Op Packet, Safety Brace Education [place],Patient M7 PT-IP Assessment and Plan Start: 06/05/20 12:27 Freq: NEEDED Status: Active Protocol: Document 06/05/20 14:39 AW (Rec: 06/05/20 15:08 AW [id number]) PT Summary Assessment and Plan Potential Rehabilitation Potential Good Status of Condition at Evaluation Evolving Summary Impairments ROM,Strength,Sensation,Bed Mobility,Transfers,Gait Assessment Summary Laura is a 70 yo right-handed woman seen for PT evaluation on POD0 following L TSA. She had recent cervical surgery at this hospital. She is independent for mobility at baseline but has been needing some assist with dressing tasks due to increased shoulder pain. On evaluation, pt required SBA to CGA for all mobility. She had good understanding of her precautions and participated in instruction on sling fitting. She would benefit from an additional PT visit to review precautions and mobility while wearing the shoulder sling. Will follow up with pt for AM visit but anticipate she will be safe to discharge home with spouse assist once medically cleared. Goals Bed Mobility Goal Independent Transfer Goal Independent Gait Goal Independent Gait Distance 150 Other Goals - up/down 14 steps with R rail ascending SBA Days to Meet Goals 2 Frequency of Treatment Frequency Of Treatment Twice a Day Treatment Plan Physical Therapy Treatment Plan Bed Mobility Training,Transfer Training,Gait Training, Therapeutic Exercise,Balance Retraining,Post Op Education, Discharge Planning,Hot or Cold Pack Other Recommendations and Next Treatment review precautions and sling Focus fitting; ambulation and stairs Recommendations To Nursing Amount of Assist Needed Standby Assistance Discharge Recommendations PT Discharge Recommendations Home with Assistance Equipment Needed for Home Before recommend shower chair Discharge Transportation Needs at Discharge Private Vehicle
[2020-06-05] MEDS: SUMAtriptan 25 MG TABLET 50 MG PO (14:56)
[2020-06-05] MEDS: ONDANSETRON 4 MG/2 ML INJ IV ×2 (15:27→19:27)
[2020-06-05] MEDS: ONDANSETRON 4 MG ODT PO (16:51)
[2020-06-05] MEDS: HYDROCODONE/ACET 5/325 TABLET 1 TAB PO (16:53)
[2020-06-05] MEDS: diphenhydrAMINE 25 MG TABLET PO (16:53)
[2020-06-05] MEDS: PROMETHAZINE 25 MG TABLET 12.5 MG PO (21:59)
[2020-06-05] MEDS: ASPIRIN EC 81 MG TABLET PO (22:12)
[2020-06-05] MEDS: HYDROCODONE/ACET 5/325 TABLET 2 TAB PO (22:12)
[2020-06-05] MEDS: NABUMETONE 500 MG TABLET PO (22:12)
[2020-06-05] MEDS: ZOLPIDEM 5 MG TABLET 10 MG PO (22:13)
--- NOTE | 2020-06-05 23:32 | PC.NURSE ---
Report received, care assumed 1530. VSS. A&Ox3. 1-person assist, up to bathroom and chair. Chasing nausea and headache/migraine with PO and IVP meds all shift without much success (see MAR). Calls placed, orders obtained from Drs. Hughes and Johan. Medicated with scheduled and PRN meds a little after 10pm; finally reports relief--I'm in heaven--at change of shift report.
[2020-06-06] VITALS: BP 107/63; PULSE 93; RESP 18; TEMP 36.2; O2SAT 97
[2020-06-06] MEDS: LACTATED RINGERS 1,000 ML 100 ML IV (01:15)
[2020-06-06 05:01] VITALS: BP 112/62; PULSE 80; RESP 16; TEMP 37; O2SAT 94
[2020-06-06 05:06] LABS: Hematocrit 35.8 % (36-46); Hemoglobin 11.9 g/dL (12.0-16.0)
--- NOTE | 2020-06-06 07:37 | P.DS_ITS ---
History of Present Illness History of Present Illness Date Patient Seen: 06/06/20 Time Patient Seen: 07:37 Chief complaint: Left Total Shoulder Arthroplasty Narrative: The history and physical is contained in the chart in a previously completed note. Please refer to that note for this information. Discharge Providers Provider Date of admission: 06/05/20 06:18 Discharge Date: 06/06/20 Primary care physician: Elijah Robert MD Consults: 06/05/20 10:37 Consult to Discharge Planning Routine Comment: Consult to Physical Therapy Evaluate & Treat Comment: Physician Instructions: PROM 90 FF, 0 ER, 0 Abd, IR to body. Pendulums. Discharge provider: Ben Hughes MD Summary Hospital Course Discharge Diagnosis: 1. Left shoulder osteoarthritis 2. Post hemorrhagic anemia Hospital Course: The patient was admitted to the hospital and taken directly to the operating room on June 05, 2020. She underwent a left total shoulder replacement for osteoarthritis. She tolerated this well but did have some postoperative nausea on the 1st day. On the morning of postoperative day 1 she was found to be comfortable. Her block was still partially in place. Her nausea had resolved. She did have a mild post hemorrhagic anemia. This did not require specific treatment. Status at Discharge Cognitive/behavioral status at discharge: oriented Functional status at discharge: independent ambulation Overall status at discharge: patient is progressing back to baseline Time Spent with Patient Time spent: Less than 30 minutes Exam Vital Signs (past 8 hours): - 06/06/20 00:00 06/06/20 05:01 Temperature 97.2 F L 98.6 F Pulse Rate 93 H 80 Respiratory Rate 18 16 Blood Pressure 107/63 112/62 Pulse Oximetry 97 94 Oxygen Delivery Method Room Air Oxygen Flow Rate 0 Narrative Exam Narrative: Dressing is intact over the left shoulder with no drainage. Light touch is reduced but present in the radial, ulnar, median, musculocutaneous and axillary nerve distribution. She is unable to fire the muscles of her hand but can flex her biceps and abduct her shoulder slightly. Objective Labs Result Diagrams: 06/06/20 04:23 Labs: Laboratory Results - last 24 hr 06/06/20 04:23 Hgb 11.9 L Hct 35.8 L PFSH Medical History (Updated 05/29/20 @ 13:12 by Jaja Anderson RN) Anemia Anxiety Arthritis Asthma Asthma, mild intermittent Cervical strain Chronic pain Constipation Depression Environmental allergies Hay fever History of migraine History of stomach ulcers Hyperlipidemia Impaired vision Insomnia Left foot pain Migraine Neck pain Numbness and tingling in left arm Pain in both upper arms Postmenopausal Primary osteoarthritis, left shoulder Sinus drainage Strain of left rotator cuff capsule Stroke Surgical History (Updated 05/29/20 @ 12:59 by Jaja Anderson RN) H/O hand surgery History of back surgery History of colonoscopy History of esophagogastroduodenoscopy (EGD) History of laminectomy History of tonsillectomy Status post cervical spinal fusion Status post epidural steroid injection Social History household members: spouse Smoking Status: Never smoker alcohol intake: current Discharge Assessment & Plan Assessment and Plan Assessment: Stable postoperative day 1 status post left total shoulder replacement with a block that is still partially in place. She has a mild post hemorrhagic anemia that does not require specific treatment. Plan of Treatment: Discharge to home today. Follow up at my office in 10-14 days. She has been given a discharge prescription for [place] for pain relief and she has been instructed to use aspirin 81 mg p.o. b.i.d. for DVT prophylaxis. Discharge Plan Discharge Plan Patient Disposition: Home Discharge orders & Medications Prescriptions: New aspirin 81 mg Tablet,Delayed Release (Dr/Ec) 81 mg PO BID 42 Days Qty: 84 RF: 0 hydrocodone-acetaminophen 5-325 mg Tablet 2 tab PO Q4HR PRN (Reason: Pain, Severe (7-10)) Qty: 40 RF: 0 Continued atorvastatin 40 mg Tablet 40 mg PO QPM RF: 0 sumatriptan succinate 100 mg Tablet 50 mg PO SEEINSTR PRN (Reason: Migraine Headache) RF: 0 diphenhydramine HCl 25 mg Capsule 50 mg PO Q4-6H PRN (Reason: Allergies) RF: 0 acetaminophen 500 mg Capsule 1,000 mg PO Q6H PRN (Reason: Pain) RF: 0 omeprazole 20 mg Tablet,Delayed Release (Dr/Ec) 20 mg PO BID Qty: 0 RF: 0 zolpidem 10 mg Tablet 10 mg PO BEDTIME PRN (Reason: Sleep) RF: 0 methocarbamol 500 mg tablet 1,000 mg PO Q6H PRN (Reason: Spasms or Pain) RF: 0 gabapentin 600 mg tablet 1,200 mg PO TID RF: 0 hydroxyzine pamoate [Vistaril] 25 mg capsule 25 mg PO QID PRN (Reason: Muscle Spasm) RF: 0 loratadine 10 mg Tablet 10 mg PO DAILY RF: 0 nabumetone 500 mg Tablet 500 mg PO BID RF: 0 Discontinued hydrocodone-acetaminophen 5-325 mg tablet 2 tab PO TID RF: 0 Follow up/Referrals: Ben Hughes MD [Physician] - 2 Weeks Elijah Robert MD [Primary Care Provider] - Discharge Health Status Multidrug resistant organism: No MDRO Diet/Activity/Treatments Diet: Diet as Tolerated and Regular Activity: You may use your left arm in front of your body below shoulder level. Lift no more than 1-2 lb with your left arm. Cold/Heat Therapy: You may apply ice for 15 minutes every hour as needed to the left shoulder for pain control. Skin/Wound/Dressing Care Report to your healthcare provider any signs of infection, such as:: chills, fever, night sweats, increased pain, unusual drainage and unusual redness Dressing: Leave the dressing in place until follow-up. You may shower with the dressing in place. If the central strip of the dressing becomes saturated with either water or blood, please call the office to have it changed. Visit Report/Discharge Packet Instructions: DI for Prescription Opioid Use, DI for Shoulder Replacement Stand Alone Forms: Surgery Discharge Discharge Data Primary Care Provider: Elijah Robert Quality VTE Deep Vein Thrombosis/Pulmonary Embolism Present on Admission: No
[2020-06-06 08:00] VITALS: BP 110/64; PULSE 73; RESP 18; TEMP 36.1; O2SAT 94
[2020-06-06] MEDS: LORATADINE 10 MG TABLET PO (08:25)
[2020-06-06] MEDS: HYDROCODONE/ACET 5/325 TABLET 2 TAB PO (08:25)
[2020-06-06] MEDS: ASPIRIN EC 81 MG TABLET PO (08:26)
[2020-06-06] MEDS: GABAPENTIN 600 MG TABLET 1200 MG PO (08:26)
[2020-06-06] MEDS: SODIUM CHLORIDE 0.9% FLUSH 10 ML IV (08:27)
[2020-06-06] MEDS: PANTOPRAZOLE 20 MG TABLET PO (08:54)
[2020-06-06] MEDS: NABUMETONE 500 MG TABLET PO (09:31)
--- NOTE | 2020-06-06 10:52 | PT.IPTN ---
Current Diagnoses Primary osteoarthritis, left shoulder (06/05/20) Surgery Performed Operation Date: 06/05/20 07:45 Actual Procedures p Total Shoulder Arthroplasty(Left) - Ben Hughes MD Physical Therapy Treatment Note M2 PT-IP Current Condition Start: 06/05/20 12:27 Freq: NEEDED Status: Discharge Protocol: Document 06/05/20 14:39 AW (Rec: 06/05/20 15:08 AW [id number]) Physical Therapy Current Condition Current Condition Evaluation Date 06/05/20 Treatment Diagnosis L TSA; decreased independence with ADL's Onset Date 06/05/20 Precautions Shoulder Precautions Sling,PROM,Internal Rotation to Body,No External Rotation, No Abduction,Forward Flexion to 90 degrees,Pendulums M3 PT-IP Subjective Start: 06/05/20 12:27 Freq: NEEDED Status: Discharge Protocol: Document 06/06/20 10:52 AB (Rec: 06/06/20 11:49 AB [id number]) Subjective Physical Therapy Visit Type Type Treatment Note Visit Start Time 10:52 Visit Stop Time 11:01 Total Visit Minutes 9 Number of ASP DEVELOPER Visits 0 M4 PT-IP Mobility and Gait Start: 06/05/20 12:27 Freq: NEEDED Status: Discharge Protocol: Document 06/05/20 14:39 AW (Rec: 06/05/20 15:08 AW [id number]) PT-Bed Mobility Assessment Supine to Sit Supine to Sit Contact Guard Assistance,Head of Bed Elevated,Bedrails Sit to Supine Sit to Supine Standby Assistance Scooting Scooting to Edge of Bed Standby Assistance PT-Transfer Assessment Sit to and From Stand Sit to and from Stand Independent Equipment Transfer Assistive Device Gait Belt Orthotic/Prosthetic Devices or Brace: Yes Transfers Transfer Destination Bed,Toilet Transfer Technique Stand Step Pivot Transfer Ability Level of Assist Contact Guard Assistance Comments Mobility Comments Pt was lying in bed as PT arrived. BP was 127/73 HR 90 at rest. She stated she bought a lift recliner that will stay downstairs and she plans to sleep in it the first few nights at home. With HOB elevated, pt needed CGA for supine to sit. She sat EOB with good balance before standing without device SBA. She ambulated to the sink for teaching on optimal sling fit before walking around the room ~40 feet. She then transferred to the toilet using R side grab bar CGA. She required assist to pull her undergarments back up after voiding. Pt then walked to the sink and washed her right hand before transferring back to bed SBA. Bed alarm was turned on for safety and pt was left with all needs and call light in reach. Gait Assessment Gait Gait Assistance Required: Standby Assistance,Contact Guard Assist Distance (Feet) 40 Assistive Devices Assistive Device Gait Belt Orthotic/Prosthetic Devices or Brace: Yes Gait Deviations General Gait Pattern Decreased Stride Length, Decreased Feet Clearance Factors Limiting Gait Function Factors Limiting Gait Function Decreased Activity Tolerance Comments Gait Comments Pt was somewhat sleepy and needed occasional CGA for steadiness. Stair Climbing Assessment Comments Stair Climbing Comments Not assessed at evaluation. PT-Balance Assessment Sitting Balance and Reactions Static Sitting Balance Ability Good Dynamic Sitting Balance Ability Good Standing Balance and Reactions Static Standing Balance Ability Good Dynamic Standing Balance Ability Good Device Used no AD M5 PT-IP Objective Assessments Start: 06/05/20 12:27 Freq: NEEDED Status: Discharge Protocol: Document 06/05/20 14:39 AW (Rec: 06/05/20 15:08 AW [id number]) Orientation Orientation/Cognition Level of Alertness Alert Orientation Name,Day of Week,Place, Situation Language Function Ability No Deficits Noted Safety Awareness Understands Safety Issues Memory Description No Deficits Noted Gross Range of Motion Upper Extremity ROM Assessment Left Impaired Lower Extremity ROM Assessment Within Functional Limits Strength Upper Extremity Strength Assessment Left Impaired Lower Extremity Strength Assessment Within Functional Limits Sensation Assessment Sensation Gross Sensation Left UE Impaired Light Touch Impaired Proprioception (Position) Impaired Sensation Description Numbness Comments Sensation Comments Slight sensation returning to lateral shoulder and proximal arm but completely numb distal to the elbow. M6 PT-IP Treatment Start: 06/05/20 12:27 Freq: NEEDED Status: Discharge Protocol: Document 06/06/20 10:52 AB (Rec: 06/06/20 11:51 AB [id number]) Physical Therapy Treatment Education Education Provided Precautions,Weight Bearing Status,Post-Op Packet,Safety Other Treatments Other Treatment Performed pt educated provided for sling management, precautions, safety and HEP refused caregiver training and further PT tx M7 PT-IP Assessment and Plan Start: 06/05/20 12:27 Freq: NEEDED Status: Discharge Protocol: Document 06/06/20 10:52 AB (Rec: 06/06/20 11:49 AB [id number]) PT Summary Assessment and Plan Potential Rehabilitation Potential Good Status of Condition at Evaluation Stable Summary Impairments ROM,Strength,Sensation,Bed Mobility,Transfers,Gait Assessment Summary Checked on pt earlier today but pt was doing a shower with NAC. Checked back on pt and NAC stated that pt is about to d/c. Talked to pt regarding PT needs but refused caregiver training. stated that she will be fine and spouse will assist her. asked pt regarding shoulder precautions and was not able to recall. Pt educated on shoulder precautions, sling management , HEP and handout dispensed. pt continues to refuse caregiver training and further PT tx and stated that she is fine moving around and will be ok at home. Nurse aware. Goals Bed Mobility Goal Independent Transfer Goal Independent Gait Goal Independent Gait Distance 150 Other Goals - up/down 14 steps with R rail ascending SBA Days to Meet Goals 2 Frequency of Treatment Frequency Of Treatment Twice a Day Treatment Plan Physical Therapy Treatment Plan Bed Mobility Training,Transfer Training,Gait Training, Therapeutic Exercise,Balance Retraining,Post Op Education, Discharge Planning,Hot or Cold Pack Other Recommendations and Next Treatment review precautions and sling Focus fitting; ambulation and stairs Recommendations To Nursing Amount of Assist Needed Standby Assistance Discharge Recommendations PT Discharge Recommendations Home with Assistance Transportation Needs at Discharge Private Vehicle
--- NOTE | 2020-06-06 11:04 | PC.NURSE ---
Went over dc instructions and medications with patient,questions answered. Patient taken via wc to vehicle driven by spouse, patient had all belongings.
--- NOTE | 2020-06-06 11:19 | CM.DANOTE ---
DCP/Assessment: Reviewed chart. Patient is a 70yr old female admitted to [facility] for elective LSA performed on 06-05-[address] Hughes. PCP is Dr. Robert. Primary payor 1)[employer]. Met with patient this AM explained CM/SW role. Patient reports that she plans to d/c home today. Patient I at baseline. Patient denies using any DME prior to admit. Patient has supportive family to assist during recovery. P: Home today. KIMBERLY Clayton Discharge Planning/Care Management CM Discharge Assessment Start: 06/06/20 10:28 Freq: Status: Discharge Protocol: Document 06/06/20 11:17 KJS (Rec: 06/06/20 11:19 KJS [id number]) Discharge Planning Assessment Assigned Director Of Social Work KIMBERLY Clayton Contact Information Carlos Real (spouse) Advance Directives? Yes History Provided By Patient,Medical Record Prior Living Arrangements Apartment/Condo Household Members spouse Type of transporation used prior to Drives own vehicle admit Independent with ADL's Yes Is patient alert and oriented? Yes Caregiver for Another No Barriers to Discharge No Discharge Plan Home Transportation Arrangement Family to provide transport. Referrals Initiated None needed Whiteboard Updated in Patient Room with Yes name and ext. # of Director Of Social Work Review Status In Process Next Review Type Continued Stay Review Pre-Anesthesia Assessment Start: 05/29/20 12:45 Freq: Status: Complete Protocol: Document 05/29/20 12:54 J (Rec: 05/29/20 13:29 [facility] [id number]) Pre-Anesthesia Assessment Preferred Name [facility] Patient Information Reviewed Via Chart Review,Phone Assessment Assessment Completed With Patient Diagnostic Results BMP/CMP,CBC,EKG Comment A1c, covid Primary Care Provider Elijah Robert Seen Specialist in Last 12 Months Yes Specialist Seen Orthopedist Preferred Language Telugu Concession Worker Required No Height 167.64 cm Hearing Ability Normal Visual Impairment Severely Limited Visual Assist Glasses Dentition Type Teeth, Natural Present Barriers to Learning Visual Other Aids No Hx Anesthesia Reactions Yes: Takes a long time for me to come around Hx Family Anesthesia Reaction No Hx Malignant Hyperthermia No Hx Blood Transfusions No Hx Blood Transfusion Reaction No Comment States that last anesthesia went well better than a lot of the others Anesthesia Review Requested No Gear Cutter No alcohol intake current alcohol intake frequency holidays/special occasions only Smoking Status Never smoker Substance Use Type does not use,prescription drug Pain Present Pain Reported Comment shoulders and neck Musculoskeletal Symptoms Joint Pain,Joint Stiffness, Joint Swelling,Neck Pain History of Falling (Recent or History of No ) Comment L 2nd finger numbness, tips of other L fingers numbe Patient is completely paralyzed or No completely immobile Ambulatory Aid Furniture Gait/Transferring Normal/bedrest/immobile Mental Status Oriented to own ability Is patient on oxygen? No Does patient have [place]/SOB No Hx Sleep Apnea No CPAP/BIPAP use not prescribed Suspected Sleep Apnea No Currently Taking a Beta Migel No Can You Climb a Flight of Stairs Without Yes SOB Hx Chest Pain No Hx SOB No Hx Syncope or Dizziness No Anti-Coagulant Therapy No Has a Television Cameraman No Cardiac Testing No Hx Pacemaker/ICD No Pacemaker Rep Required? No Cardiac Clearance Received Not Applicable Diet Type At Home Regular,Other dysphagia Yes: 'just with rice' Gastrointestinal Symptoms Reflux Comment Avoids aged/processed meats, cheeses, real chocolate, fresh yeast, alcohol Bladder Pattern Incontinent,Nocturia Urinary Catheter Present No Hx Urinary Self Catheterization No Diabetes No Patient No Lactating No Hx Drug Resistant Organism No Presence of External or Internal Medical Yes: Hardware in neck Devices Have you had any close contact with No someone diagnosed with COVID-19? Are you experiencing any of these Headache symptoms? Evaluation/Screening for possible COVID- Yes 19 infection completed? Comment Headache @ baseline Marital Status Lives With spouse Prior Living Arrangements Apartment/Condo Number of Floors (Floors) Two Floors Number of Stairs To Enter/Railing? able to stay on main level post-op Support System Family,Spouse Does the Patient Have Assistance After Yes Surgery Patient Discharge Plan Description Return Home Feels Safe in Current Environment Yes Been Physically Hurt or Threatened By a No Person in Current Environment Do you have thoughts of harming yourself None or others? Are you currently considering suicide? No Do you have a plan to hurt yourself or No Plan others? Do You Have Any Spiritual Beliefs That Yes: Shinto May Affect Your HC Choices? Do You Have Any Cultural Practices That No May Affect Your HC Choices? Who Can We Speak to About Patient's Care Family & Friends Identifying Code for Release of Patient Declined Information Health Care Proxy/Next of Kin - Carlos Real Health Care Proxy Emergency Contact Name Carlos Real Emergency Contact Advance Directives? Yes: POLST Power of Architect Internship No: advanced directives and durable power of attorny need to be notrarized Power of Architect Internship Name Carlos Real PAC Instructions Assistance for 24 hours post- op,Do not shave/clip surgical site,Durable medical equipment ,Medications to take/avoid, Nasal antibiotic,No ETOH/ petroleum product on skin DOS, NPO,Post-op transportation,Pre -op antibiotic,Pre-surgical wash,Sensory aids,Sturdy shoes /comfortable clothes,Do not bring valuables and remove jewelry
== END 2020-06-06 11:07 | disposition home or self-care (01) | DRG 483 ==
PROVIDERS: Admitting Provider Orthopaedic Surgery; PCP Family Medicine; Referring Provider Family Medicine; Visit Provider Orthopaedic Surgery
PROC: 0RRK0JZ Replacement of Left Shoulder Joint with Synthetic Substitute, Open Approach (ICD-10-PCS; CPT 23472; principal; 2020-06-05 07:45)
DX: M19.012 Primary osteoarthritis, left shoulder (principal); E78.5 Hyperlipidemia, unspecified; R20.2 Paresthesia of skin; M48.02 Spinal stenosis, cervical region; M25.712 Osteophyte, left shoulder; R11.0 Nausea; Z20.822 Contact with and (suspected) exposure to COVID-19
CPT/HCPCS: 36415; 64450; 73020; 85014; 85018; 87635; 97161; 97530; C1776; C9803; J0330; J0690; J1100; J1170; J2250; J2405; J2704; J3010

== ENCOUNTER 2020-06-20 11:55 | Inpatient (IN) | payer OTHER, SELFPAY ==
[2020-06-05 10:46] VITALS: BMI 33.3
[2020-06-20] VITALS (17 sets, daily range): BP systolic 132–155; BP diastolic 56–96; PULSE 90–107; RESP 14–30; TEMP 36.4–36.9; O2SAT 93–97; BMI 30.9
--- NOTE | 2020-06-20 12:21 | ED.SOB ---
HPI - SOB/Dyspnea General Chief Complaint: Shortness of Breath/Dyspnea Stated Complaint: shortness of breath, started 10 days ago Time Seen by Provider: 06/20/20 12:03 Source: patient Mode of arrival: Ambulatory Limitations: no limitations History of Present Illness HPI Narrative: Patient is a 70-year-old female who presents with increasing shortness of breath over the last 10 days. 10 days ago she had left shoulder surgery for which she stayed 1 night hospital for. sHe says as long as she is resting she has no shortness of breath or chest pain however whenever she starts moving she gets extremely short of breath. She has no orthopnea or peripheral swelling. MD Complaint: shortness of breath Onset (ago): day(s) () Relieving factors: rest Exacerbating factors: exertion Related Data Home Medications Medication Instructions Recorded Confirmed acetaminophen 1,000 mg PO PRN PRN 01/30/18 06/20/20 atorvastatin 40 mg PO QPM 01/30/18 06/20/20 diphenhydramine HCl 50 mg PO Q4-6H PRN 01/30/18 06/20/20 omeprazole 20 mg PO BID #0 01/30/18 06/20/20 sumatriptan succinate 50 mg PO SEEINSTR PRN 01/30/18 06/20/20 zolpidem 10 mg PO BEDTIME PRN 01/30/18 06/20/20 gabapentin 1,200 mg PO TID 03/22/19 06/20/20 hydroxyzine pamoate [Vistaril] 25 mg PO QID PRN 03/22/19 06/20/20 methocarbamol 1,000 mg PO Q6H PRN 03/22/19 06/20/20 loratadine 10 mg PO DAILY 05/29/20 06/20/20 nabumetone 1,000 mg PO DAILY 05/29/20 06/20/20 Previous Rx's Medication Instructions Recorded hydrocodone-acetaminophen 2 tab PO Q4HR PRN #40 tab 06/06/20 Allergies Allergy/AdvReac Type Severity Reaction Status Date / Time azithromycin [AZITHROMYCIN] Allergy Severe HEADACHE, Verified 06/20/20 12:06 NAUSEA, Hives chocolate flavor Allergy Severe HEADACHE, Verified 06/20/20 12:06 [CHOCOLATE FLAVOR] HIVES corn [CORN] Allergy Severe HIVES, Verified 06/20/20 12:06 HEADACHE shrimp [SHRIMP] Allergy Severe SWELLING, Verified 06/20/20 12:06 HIVES, HEADACHE sulfanilamide Allergy Severe Eyes and Verified 06/20/20 12:06 throat swelling verapamil [VERAPAMIL] Allergy Severe NAUSEA, Verified 06/20/20 12:06 THROAT SWELLING, MOUTH GOES NUMB codeine [CODEINE] Allergy Mild HIVES, Verified 06/20/20 12:06 NAUSEA, HEADACHES iodine [IODINE] Allergy Mild HEADACHES, Verified 06/20/20 12:06 HIVES TOPICAL OK furosemide [FUROSEMIDE] Allergy Unknown UNKNOWN Verified 06/20/20 12:06 PER PT baclofen AdvReac Severe Headache Verified 06/20/20 12:06 meperidine [MEPERIDINE] AdvReac Severe NAUSEA Verified 06/20/20 12:06 nitrofurantoin AdvReac Severe Headache Verified 06/20/20 12:06 oxycodone [OXYCODONE] AdvReac Severe NAUSEA, Verified 06/20/20 12:06 HEADACHE topiramate [From Topamax] AdvReac Severe Nose goes Verified 06/20/20 12:06 numb, hair falls out cetirizine [From Zyrtec] AdvReac Intermediate Headache Verified 06/20/20 12:06 garlic AdvReac Intermediate HEADACHE; Verified 06/20/20 12:06 OTHER SPICES TOO hydromorphone [From DILAUDID] AdvReac Intermediate VOMITING Verified 06/20/20 12:06 nortriptyline AdvReac Intermediate Headache Verified 06/20/20 12:06 onion AdvReac Intermediate HEADACHE Verified 06/20/20 12:06 eggs AdvReac Intermediate Hives, Uncoded 06/05/20 06:52 headaches Review of Systems Review of Systems ROS Unobtainable: All systems reviewed & are unremarkable except as noted in HPI and below Constitutional Constitutional: Denies chills, Denies fever(s), Denies lethargy and Denies weakness Eyes Eyes: Denies change in vision, Denies eye discharge, Denies irritation and Denies loss of vision Cardiovascular Cardiovascular: Denies chest pain, Denies irregular heart rhythm, Denies lightheadedness, Denies palpitations, Reports dyspnea on exertion and Denies orthopnea Respiratory Respiratory: Denies cough, Denies hemoptysis, Denies pain on inspiration, Denies pain with cough and Reports dyspnea on exertion Gastrointestinal Gastrointestinal: Denies abdominal pain, Denies change in bowel habits, Denies diarrhea, Denies nausea and Denies vomiting Musculoskeletal Musculoskeletal: Reports as per HPI, Denies back pain, Denies myalgias and Reports arthralgias Integumentary/Breasts Skin/Breast: Denies pruritus, Denies erythema, Denies rash and Denies wounds Neurologic Neurologic: Denies loss of vision and Denies weakness Endocrine Endocrine: Denies palpitations Patient History Medical History Anemia Anxiety Arthritis Asthma Asthma, mild intermittent Cervical strain Chronic pain Constipation Depression Environmental allergies Hay fever History of migraine History of stomach ulcers Hyperlipidemia Impaired vision Insomnia Left foot pain Migraine Neck pain Numbness and tingling in left arm Pain in both upper arms Postmenopausal Primary osteoarthritis, left shoulder Sinus drainage Strain of left rotator cuff capsule Stroke Surgical History H/O hand surgery History of back surgery History of colonoscopy History of esophagogastroduodenoscopy (EGD) History of laminectomy History of tonsillectomy Status post cervical spinal fusion Status post epidural steroid injection Social History household members: spouse Smoking Status: Never smoker alcohol intake: current Smoking Status: Never smoker alcohol intake frequency: holidays/special occasions only Substance Use Type: does not use Exam Initial Vital Signs Initial Vital Signs: Vital Signs Temperature 97.6 F 06/20/20 12:00 Pulse Rate 102 H 06/20/20 12:00 Respiratory Rate 22 06/20/20 12:00 Blood Pressure 133/96 H 06/20/20 12:00 Pulse Oximetry 95 06/20/20 12:00 GENERAL: Well-appearing, well-nourished and in no acute distress. HEENT: Head atraumatic,EOMI, pupils reactive, face symmetric, moist mucous membranes CARDIOVASCULAR: Regular rate and rhythm without murmurs, rubs or gallops. RESPIRATORY: Breath sounds equal bilaterally, no wheezes rales or rhonchi. ABDOMEN: Soft, nontender. Normoactive bowel sounds all 4 quadrants. No guarding or rebound. EXTREMITIES: Normal range of motion, no clubbing or edema. Neurovascularly intact NEUROLOGICAL: Alert and oriented x4.Normal gait and speech. Cranial nerves II through XII grossly intact. SKIN: Warm, dry, no laceration, no petechiae, no rashes or lesions. Course Orders Ordered: ED Orders 06/20/20 12:25 Consult to Respiratory Therapy Evaluate & Treat EKG-12 Lead Stat 06/20/20 12:39 Complete Blood Count AUTO DIFF Stat Comprehensive Metabolic Panel Stat Magnesium Stat NT-proBNP (BNP-Adult 18+) Stat Partial Thromboplastin Time Stat Prothrombin Time INR Stat Troponin & CK Cardiac Panel Stat 06/20/20 13:42 CT angio chest PE protocol Stat 06/20/20 14:20 COVID19 Stat Acetaminophen (Acetaminophen 325 Mg Tablet) 975 mg PO Q6H PRN PRN Reason: Pain, Mild (1-3) Hydrocodone Bitart/Acetaminophen (Hydrocodone/Acet 5/325 Tablet) 2 tab PO Q4HR PRN PRN Reason: Pain, Severe (7-10) Al Hydrox/Mg Hydrox/Simethicone (Mag Hydrox/Alum/Simeth 30 Ml Udc) 30 ml PO Q6HR PRN PRN Reason: Dyspepsia Atorvastatin Calcium (Atorvastatin 20 Mg Tablet) 40 mg PO QPM DWAYNE Bisacodyl (Bisacodyl 10 Mg Supp) 10 mg [place] DAILY PRN PRN Reason: Constipation Gabapentin (Gabapentin 600 Mg Tablet) 1,200 mg PO TID DWAYNE Hydroxyzine Pamoate (Hydroxyzine Pamoate 25 Mg Capsule) 25 mg PO QID PRN PRN Reason: Muscle Spasm Heparin Sodium/Dextrose (Heparin Drip) 25,000 unit in 500 mls @ 20 mls/hr IV CONT DWAYNE; Protocol Last Titration: 06/20/20 16:37 Dose: 1,000 units/hr, 20 mls/hr Documented by: Admin: 06/20/20 14:28 Dose: 1,000 units/hr, 20 mls/hr Documented by: FRANDY Loratadine (Loratadine 10 Mg Tablet) 10 mg PO DAILY DWAYNE Magnesium Hydroxide (Magnesium Hydroxide 30 Ml Udc) 30 ml PO DAILY PRN PRN Reason: Constipation Methocarbamol (Methocarbamol 500 Mg Tablet) 1,000 mg PO Q6H PRN PRN Reason: Spasms or Pain Naloxone HCl (Naloxone 0.4 Mg/Ml Vial) 0.2 mg IV Q2MIN PRN PRN Reason: Opiate Reversal Ondansetron HCl (Ondansetron 4 Mg/2 Ml Inj) 4 mg IV Q8HR PRN PRN Reason: Nausea And Vomiting Pantoprazole Sodium (Pantoprazole 20 Mg Tablet) 20 mg PO BID DWAYNE Sumatriptan Succinate (Sumatriptan 25 Mg Tablet) 50 mg PO PRN PRN PRN Reason: Migraine Headache Warfarin Sodium (Warfarin 5 Mg Tablet) 5 mg PO 1700 DWAYNE Zolpidem Tartrate (Zolpidem 5 Mg Tablet) 10 mg PO BEDTIME PRN PRN Reason: Sleep Discontinued Medications Diphenhydramine HCl (Diphenhydramine 50 Mg/Ml Vial) 25 mg IV NOW ONE Stop: 06/20/20 12:29 Last Admin: 06/20/20 13:15 Dose: 25 mg Documented by: FRANDY Heparin Sodium (Porcine) (Heparin 5,000 Unit/Ml Vial) 7,000 unit 80 unit/kg (7000 unit) IV NOW ONE Stop: 06/20/20 14:09 Last Admin: 06/20/20 14:28 Dose: 7,000 unit Documented by: FRANDY Methylprednisolone (Methylprednisolone 125 Mg/2 Ml Vial) 125 mg IV NOW ONE Stop: 06/20/20 12:29 Last Admin: 06/20/20 13:15 Dose: 125 mg Documented by: FRANDY Vital Signs Vital signs: Vital Signs - 8 hr 06/20/20 12:00 06/20/20 12:03 06/20/20 12:04 Temperature 97.6 F Pulse Rate 102 H Respiratory Rate 22 22 Blood Pressure 133/96 H 133/96 H Pulse Oximetry 95 93 06/20/20 12:30 06/20/20 13:00 06/20/20 13:30 Temperature Pulse Rate 91 H 94 H Respiratory Rate 16 22 22 Blood Pressure 132/69 149/56 H 149/77 H Pulse Oximetry 95 93 95 06/20/20 13:52 06/20/20 14:00 06/20/20 14:30 Temperature Pulse Rate 97 H 90 90 Respiratory Rate 19 21 21 Blood Pressure 147/80 H 147/78 H Pulse Oximetry 94 95 96 06/20/20 15:00 Temperature Pulse Rate 90 Respiratory Rate 21 Blood Pressure 142/76 H Pulse Oximetry 96 MDM - SOB/Dyspnea Lab Data Attestation: I reviewed the patient's lab results. Result diagrams: 06/20/20 12:39 06/20/20 12:39 Labs: Lab Results 06/20/20 06/20/20 06/20/20 Range/Units 12:39 12:39 12:39 WBC 11.2 H (4.5-11.0) X10^3/uL RBC 4.55 (4.0-5.2) X10^6/uL Hgb 13.5 (12.0-16.0) g/dL Hct 41.3 (36-46) % MCV 90.7 (80-100) fL MCH 29.6 (26-34) PG MCHC 32.6 (30-36) % RDW 13.1 (11.6-14.8) % Plt Count 291 (150-400) X10^3/uL Neut % (Auto) 78.4 H (50-75) % Lymph % (Auto) 14.3 L (25-40) % [place] % (Auto) 6.0 (3-14) % Eos % (Auto) 0.6 L (2-4) % Baso % (Auto) 0.7 (0-2) % Neut # (Auto) 8700 H (2187-3114) /uL Lymph # (Auto) 1600 (1734-7982) /uL [place] # (Auto) 700 (0-900) /uL Eos # (Auto) 100 (0-450) /uL Baso # (Auto) 100 (0-100) /uL PT 12.5 (10.1-12.7) SECONDS INR 1.1 (0.9-1.3) APTT 34 (26.4-36.2) SECONDS Sodium (137-145) mmol/L Potassium (3.4-5.1) mmol/L Chloride (98-107) mmol/L Carbon Dioxide (22-32) mmol/L BUN (7-17) mg/dL Creatinine (0.52-1.04) mg/dL Estimated GFR (>60) mL/min BUN/Creatinine Ratio (6-22) Glucose (80-110) mg/dL Calcium (8.4-10.2) mg/dL Magnesium 2.2 (1.6-2.3) mg/dL Total Bilirubin (0.2-1.3) mg/dL AST (14-36) IU/L ALT (<35) IU/L Alkaline Phosphatase (38-126) U/L Total Creatine Kinase 55 (30-135) U/L CK-MB (CK-2) TNP CK-MB (CK-2) Rel Index TNP Troponin I 0.069 H (0.01-0.034) ng/mL NT-Pro-B Natriuret Pep 2300 H (<125) pg/mL Total Protein (6.3-8.2) g/dL Albumin (3.5-5.0) g/dL Globulin (1.7-4.1) g/dL Albumin/Globulin Ratio (1.0-2.8) SARS-CoV-2 (PCR) (Negative) 06/20/20 06/20/20 Range/Units 12:39 14:20 WBC (4.5-11.0) X10^3/uL RBC (4.0-5.2) X10^6/uL Hgb (12.0-16.0) g/dL Hct (36-46) % MCV (80-100) fL MCH (26-34) PG MCHC (30-36) % RDW (11.6-14.8) % Plt Count (150-400) X10^3/uL Neut % (Auto) (50-75) % Lymph % (Auto) (25-40) % [place] % (Auto) (3-14) % Eos % (Auto) (2-4) % Baso % (Auto) (0-2) % Neut # (Auto) (3448-1126) /uL Lymph # (Auto) (9506-7054) /uL [place] # (Auto) (0-900) /uL Eos # (Auto) (0-450) /uL Baso # (Auto) (0-100) /uL PT (10.1-12.7) SECONDS INR (0.9-1.3) APTT (26.4-36.2) SECONDS Sodium 141 (137-145) mmol/L Potassium 3.8 (3.4-5.1) mmol/L Chloride 110 H (98-107) mmol/L Carbon Dioxide 23 (22-32) mmol/L BUN 14 (7-17) mg/dL Creatinine 0.69 (0.52-1.04) mg/dL Estimated GFR > 60.0 (>60) mL/min BUN/Creatinine Ratio 20.3 (6-22) Glucose 116 H (80-110) mg/dL Calcium 10.0 (8.4-10.2) mg/dL Magnesium (1.6-2.3) mg/dL Total Bilirubin 0.3 (0.2-1.3) mg/dL AST 22 (14-36) IU/L ALT 17 (<35) IU/L Alkaline Phosphatase 120 (38-126) U/L Total Creatine Kinase (30-135) U/L CK-MB (CK-2) CK-MB (CK-2) Rel Index Troponin I (0.01-0.034) ng/mL NT-Pro-B Natriuret Pep (<125) pg/mL Total Protein 6.9 (6.3-8.2) g/dL Albumin 4.0 (3.5-5.0) g/dL Globulin 2.9 (1.7-4.1) g/dL Albumin/Globulin Ratio 1.4 (1.0-2.8) SARS-CoV-2 (PCR) Negative (Negative) Urine Dip Bedside Urine Glucose Negative Bedside Urine Bilirubin - Negative Bedside Urine Ketone - Negative Bedside Urine Occult Blood - Negative Bedside Urine Protein - Negative Bedside Urine Urobilinogen - Negative Bedside Urine Nitrite - Negative Bedside Urine Leukocytes - Negative Esterase Imaging Data CT scan - chest: Radiologist's Impression: PROCEDURE: CT ANGIO CHEST PE PROTOCOL INDICATIONS: sob TECHNIQUE: After the administration of intravenous contrast, 2 mm thick sections acquired from the pulmonary apices to the posterior costophrenic angles. 3-dimensional maximum intensity projection (MIP) coronal and sagittal reformats were then acquired through the thorax. For radiation dose reduction, the following was used: automated exposure control, adjustment of mA and/or kV according to patient size. COMPARISON: None. FINDINGS: Image quality: Excellent. Pulmonary arteries: Large bilateral saddle pulmonary emboli noted in the main pulmonary arteries extending into the bilateral upper, lower and right middle lobar, segmental and subsegmental pulmonary arteries. Lungs and pleura: Few patchy, small airspace opacities noted in the periphery of the left lung base which may represent subsegmental atelectasis, infection or early pulmonary infarct. 6 millimeter subpleural nodule noted in the left lower lobe. No pleural effusions or pneumothorax. Central and peripheral airways are patent. Mediastinum: Heart size is normal, without pericardial effusion. Heart RV/LV ratio is 1.7 and there is contrast reflux into the inferior vena cava/hepatic veins. No mediastinal or hilar adenopathy. Thoracic aorta is normal in caliber and enhancement. Esophagus is normal in caliber, without hiatal hernia. Bones and chest wall: No suspicious bony lesions. Ribs and thoracic spine appear intact throughout. No axillary or supraclavicular adenopathy. Abdomen: Hepatic cyst noted. Visualized upper abdominal solid organs otherwise appear normal in the early arterial phase of enhancement. IMPRESSION: 1. Large bilateral saddle pulmonary emboli. 2. Heart RV/LV ratio 1.7 and reflux of contrast material inferior vena cava compatible with right heart strain. Findings telephoned to Dr. Hussein on June 20, 2020 at 2:07 p.m.. Dictated by: Shruti Smith MD, PhD on 06/20/2020 at 14:03 ECG Data Attestation: I personally reviewed and interpreted this ECG as follows: Prior ECG tracings: available for review Interpretation: Low voltage sinus rhythm rate 91 no S waves no T-wave inversions p.r. interval 167 QRS in the QTC 444 no significant changes from previous EKG MDM Narrative Medical decision making narrative: Patient is not hypotensive or hypoxic. She is found to have a large sub massive PE. It is bilateral and in the saddle area. She is also found to have right wrist strain on CT but is otherwise hemodynamically stable. 15:11 Dr. Carmen, Cardio Interventionalist, at this time does not meet criteria for intervention,. This is a sub massive pulmonary embolism not hypotensive or hypoxic. At this time recommends heparin only. PE has likely been there for 10 days. If any decompensation overnight would need intervention. 15:15 Dr. Robert updated on patient's his symptoms test results and cardiology recommendations. At this time accepts patient for admission. Discharge Plan Departure Patient Disposition: Admitted As Inpatient Clinical Impression: Pulmonary embolism Admit Date/Time: 06/20/20 15:21 Admit Provider: Elijah Robert
--- NOTE | 2020-06-20 12:29 | PC.NURSE ---
pt had recent left shoulder surgery. short of breath for 10 days.
[2020-06-20 12:48] LABS: Add Manual Diff / Slide Review NO; Basophils Absolute Auto 100 /uL (0-100); Basophils Percent Auto 0.7 % (0-2); Eosinophils Absolute Auto 100 /uL (0-450); Eosinophils Percent Auto 0.6 % (2-4); Hematocrit 41.3 % (36-46); Hemoglobin 13.5 g/dL (12.0-16.0); Lymphocytes Absolute Auto 1600 /uL (1100-4500); Lymphocytes Percent Auto 14.3 % (25-40); Mean Corpuscular HGB Conc 32.6 % (30-36); Mean Corpuscular Hemoglobin 29.6 PG (26-34); Mean Corpuscular Volume 90.7 fL (80-100); Monocytes Absolute Auto 700 /uL (0-900); Neutrophils Absolute Auto 8700 /uL (1500-7000); Neutrophils Percent Auto 78.4 % (50-75); Platelet Count 291 X10^3/uL (150-400); Red Blood Cell Count 4.55 X10^6/uL (4.0-5.2); Red Cell Distribution Width 13.1 % (11.6-14.8); White Blood Cell Count 11.2 X10^3/uL (4.5-11.0)
[2020-06-20 12:54] LABS: INR 1.1 (0.9-1.3); Prothrombin Time 12.5 SECONDS (10.1-12.7)
[2020-06-20 12:56] LABS: PTT Partial Thromboplastin Tim 34 SECONDS (26.4-36.2)
[2020-06-20 12:59] LABS: Alanine Aminotransferase 17 IU/L (<35); Albumin Globulin Ratio 1.4 (1.0-2.8); Alkaline Phosphatase 120 U/L (38-126); Aspartate Aminotransferase 22 IU/L (14-36); BUN Creatinine Ratio 20.3 (6-22); Bilirubin Total 0.3 mg/dL (0.2-1.3); Blood Urea Nitrogen 14 mg/dL (7-17); Carbon Dioxide 23 mmol/L (22-32); Chloride 110 mmol/L (98-107); Estimated Glomerular Filt Rate > 60.0 mL/min (>60); Globulin 2.9 g/dL (1.7-4.1); Glucose 116 mg/dL (80-110); HEMOLYSIS < 15 (0-50); Potassium 3.8 mmol/L (3.4-5.1); Sodium 141 mmol/L (137-145); Total Protein 6.9 g/dL (6.3-8.2)
[2020-06-20] MEDS: diphenhydrAMINE 50 MG/ML VIAL 25 MG IV (13:15)
[2020-06-20] MEDS: methylPREDNISolone 125 MG/2 ML VIAL IV (13:15)
[2020-06-20 13:23] LABS: Creatine Kinase 55 U/L (30-135); Magnesium 2.2 mg/dL (1.6-2.3)
[2020-06-20 13:37] LABS: NT-proBNP (BNP-Adult 18+) 2300 pg/mL (<125); Troponin I 0.069 ng/mL (0.01-0.034)
--- NOTE | 2020-06-20 13:42 | DI.CT.S_ITS ---
PROCEDURE: CT ANGIO CHEST PE PROTOCOL INDICATIONS: sob TECHNIQUE: After the administration of intravenous contrast, 2 mm thick sections acquired from the pulmonary apices to the posterior costophrenic angles. 3-dimensional maximum intensity projection (MIP) coronal and sagittal reformats were then acquired through the thorax. For radiation dose reduction, the following was used: automated exposure control, adjustment of mA and/or kV according to patient size. COMPARISON: None. FINDINGS: Image quality: Excellent. Pulmonary arteries: Large bilateral saddle pulmonary emboli noted in the main pulmonary arteries extending into the bilateral upper, lower and right middle lobar, segmental and subsegmental pulmonary arteries. Lungs and pleura: Few patchy, small airspace opacities noted in the periphery of the left lung base which may represent subsegmental atelectasis, infection or early pulmonary infarct. 6 millimeter subpleural nodule noted in the left lower lobe. No pleural effusions or pneumothorax. Central and peripheral airways are patent. Mediastinum: Heart size is normal, without pericardial effusion. Heart RV/LV ratio is 1.7 and there is contrast reflux into the inferior vena cava/hepatic veins. No mediastinal or hilar adenopathy. Thoracic aorta is normal in caliber and enhancement. Esophagus is normal in caliber, without hiatal hernia. Bones and chest wall: No suspicious bony lesions. Ribs and thoracic spine appear intact throughout. No axillary or supraclavicular adenopathy. Abdomen: Hepatic cyst noted. Visualized upper abdominal solid organs otherwise appear normal in the early arterial phase of enhancement. IMPRESSION: 1. Large bilateral saddle pulmonary emboli. 2. Heart RV/LV ratio 1.7 and reflux of contrast material inferior vena cava compatible with right heart strain. Findings telephoned to Dr. Hussein on June 20, 2020 at 2:07 p.m.. Dictated by: Shruti Smith MD, PhD on 06/20/2020 at 14:03 Approved by: Shruti Smith MD, PhD on 06/20/2020 at 14:09
[2020-06-20] MEDS: HEPARIN 5,000 UNIT/ML VIAL 7000 UNIT IV (14:28)
[2020-06-20] MEDS: HEPARIN DRIP 25,000 UNIT/500 ML IV.SOLN 20 UNIT IV (14:28)
--- NOTE | 2020-06-20 14:30 | PC.NURSE ---
1430: Heparin bolus given and drip started. Next PTT time 2030, order already entered.
[2020-06-20 15:09] LABS: COVID19 -Nasal RAPID Negative (Negative)
--- NOTE | 2020-06-20 17:32 | PM.HP.1 ---
History of Present Illness History of Present Illness Date Patient Seen: 06/20/20 Time Patient Seen: 17:33 Date of Onset of Symptoms: 06/18/20 Chief complaint: shortness of breath, started 10 days ago Narrative: Patient is a 70-year-old white female who presents with 2 day history of worsening shortness of breath. Patient is 2 weeks out from shoulder surgery on her left side. She apparently had done well until about 4 days after surgery when she started noted that she was having a little short of breath when she got up and walked around. It seemed to be slowly getting worse over the last 10 days. Until the last 2 days it got significantly worse. She never had any leg swelling. No thigh pain. No abdominal pain. She has not had any chest pain. She only noticed it when she was up get around. She got to the 0.2 days ago where she walked much more than across the room she felt like she had to get their quicker she was not going to make it. This really only lasted for 24 hours she was seen by her surgeon today who recommended she go to the emergency room after discussing with us.. She has had no nausea or vomiting. She has had no night sweats or other changes. She continues to deny any swelling or discomfort in her legs except a little bit on the anterior left cardoso. She has had no orthopnea. No edema. No other changes. Patient had a mild tachycardia but had no oxygen requirement. No other changes. Past medical history: Hyperlipidemia Insomnia History of bleeding gastric ulcer Spinal stenosis of cervical spine Migraine Asthma mild intermittent Past surgical history: Tonsillectomy Neck surgery for spinal stenosis multiple, 2009, 2011, 2014, 2018 Colonoscopy 2006 EGD 2006 bleeding ulcer Family history: Negative for stroke or pulmonary embolus or DVT, father asthma, suicide. Mother, substance abuse elevated cholesterol Osteoporosis stroke, siblings symptoms abuse asthma colon cancer high cholesterol, son Hardik alcoholic with suicidal ideations Social history retired Naseem Patient History Medical History Anemia Anxiety Arthritis Asthma Asthma, mild intermittent Cervical strain Chronic pain Constipation Depression Environmental allergies Hay fever History of migraine History of stomach ulcers Hyperlipidemia Impaired vision Insomnia Left foot pain Migraine Neck pain Numbness and tingling in left arm Pain in both upper arms Postmenopausal Primary osteoarthritis, left shoulder Sinus drainage Strain of left rotator cuff capsule Stroke Surgical History H/O hand surgery History of back surgery History of colonoscopy History of esophagogastroduodenoscopy (EGD) History of laminectomy History of tonsillectomy Status post cervical spinal fusion Status post epidural steroid injection Family & Social History Social History: household members spouse Prior Living Arrangements Apartment/Condo Safety & Behavioral: Feels Safe in Current Yes Environment Been Physically Hurt or No Threatened By a Person Suicidal Ideation Description None Suicide Plan Description No Plan Tobacco & Substance use: Smoking Status Never smoker alcohol intake current alcohol intake frequency holiday/special occasion Substance Use Type does not use Meds Home Medications and Allergies Home Medications Medication Instructions Recorded Confirmed Type acetaminophen 1,000 mg PO PRN PRN 01/30/18 06/20/20 History atorvastatin 40 mg PO QPM 01/30/18 06/20/20 History diphenhydramine HCl 50 mg PO Q4-6H PRN 01/30/18 06/20/20 History omeprazole 20 mg PO BID #0 01/30/18 06/20/20 History sumatriptan succinate 50 mg PO SEEINSTR PRN 01/30/18 06/20/20 History zolpidem 10 mg PO BEDTIME PRN 01/30/18 06/20/20 History gabapentin 1,200 mg PO TID 03/22/19 06/20/20 History hydroxyzine pamoate [Vistaril] 25 mg PO QID PRN 03/22/19 06/20/20 History methocarbamol 1,000 mg PO Q6H PRN 03/22/19 06/20/20 History loratadine 10 mg PO DAILY 05/29/20 06/20/20 History nabumetone 1,000 mg PO DAILY 05/29/20 06/20/20 History hydrocodone-acetaminophen 2 tab PO Q4HR PRN #40 tab 06/06/20 06/20/20 Rx Allergies Allergy/AdvReac Type Severity Reaction Status Date / Time azithromycin [AZITHROMYCIN] Allergy Severe HEADACHE, Verified 06/20/20 12:06 NAUSEA, Hives chocolate flavor Allergy Severe HEADACHE, Verified 06/20/20 12:06 [CHOCOLATE FLAVOR] HIVES corn [CORN] Allergy Severe HIVES, Verified 06/20/20 12:06 HEADACHE shrimp [SHRIMP] Allergy Severe SWELLING, Verified 06/20/20 12:06 HIVES, HEADACHE sulfanilamide Allergy Severe Eyes and Verified 06/20/20 12:06 throat swelling verapamil [VERAPAMIL] Allergy Severe NAUSEA, Verified 06/20/20 12:06 THROAT SWELLING, MOUTH GOES NUMB codeine [CODEINE] Allergy Mild HIVES, Verified 06/20/20 12:06 NAUSEA, HEADACHES iodine [IODINE] Allergy Mild HEADACHES, Verified 06/20/20 12:06 HIVES TOPICAL OK furosemide [FUROSEMIDE] Allergy Unknown UNKNOWN Verified 06/20/20 12:06 PER PT baclofen AdvReac Severe Headache Verified 06/20/20 12:06 meperidine [MEPERIDINE] AdvReac Severe NAUSEA Verified 06/20/20 12:06 nitrofurantoin AdvReac Severe Headache Verified 06/20/20 12:06 oxycodone [OXYCODONE] AdvReac Severe NAUSEA, Verified 06/20/20 12:06 HEADACHE topiramate [From Topamax] AdvReac Severe Nose goes Verified 06/20/20 12:06 numb, hair falls out cetirizine [From Zyrtec] AdvReac Intermediate Headache Verified 06/20/20 12:06 garlic AdvReac Intermediate HEADACHE; Verified 06/20/20 12:06 OTHER SPICES TOO hydromorphone [From DILAUDID] AdvReac Intermediate VOMITING Verified 06/20/20 12:06 nortriptyline AdvReac Intermediate Headache Verified 06/20/20 12:06 onion AdvReac Intermediate HEADACHE Verified 06/20/20 12:06 eggs AdvReac Intermediate Hives, Uncoded 06/05/20 06:52 headaches Review of Systems Review of Systems ROS: Yes All systems reviewed with the patient and are negative except as otherwise documented Exam Vital Signs (past 8 hours): - 06/20/20 12:00 06/20/20 12:03 06/20/20 12:04 Temperature 97.6 F Pulse Rate 102 H Respiratory Rate 22 22 Blood Pressure 133/96 H 133/96 H Pulse Oximetry 95 93 06/20/20 12:30 06/20/20 13:00 06/20/20 13:30 Temperature Pulse Rate 91 H 94 H Respiratory Rate 16 22 22 Blood Pressure 132/69 149/56 H 149/77 H Pulse Oximetry 95 93 95 06/20/20 13:52 06/20/20 14:00 06/20/20 14:30 Temperature Pulse Rate 97 H 90 90 Respiratory Rate 19 21 21 Blood Pressure 147/80 H 147/78 H Pulse Oximetry 94 95 96 06/20/20 15:00 06/20/20 15:31 06/20/20 15:33 Temperature Pulse Rate 90 107 H 100 H Respiratory Rate 21 30 H 14 Blood Pressure 142/76 H 134/66 Pulse Oximetry 96 97 95 06/20/20 16:00 06/20/20 16:30 Temperature 97.6 F Pulse Rate 91 H 97 H Respiratory Rate 16 18 Blood Pressure 137/79 155/96 H Pulse Oximetry 95 95 Oxygen Delivery Method Room Air Oxygen Flow Rate 1 Narrative Exam Narrative: Elderly obese female lying in bed in no acute respiratory distress. Mucous membranes moist. Neck supple without adenopathy JVD or bruits. Lungs are clear. Heart regular rate and rhythm without murmurs clicks rubs or gallops. Abdomen is obese soft positive bowel sounds nontender extremities without cyanosis clubbing edema. No femoral tenderness no swelling no erythema no redness No calf tenderness. Negative Homans sign. Neurologic exam is nonfocal. Psychologically smiling interactive Objective Labs Result Diagrams: 06/20/20 12:39 06/20/20 12:39 Labs: Laboratory Results - last 24 hr 06/20/20 06/20/20 06/20/20 12:39 12:39 12:39 WBC 11.2 H RBC 4.55 Hgb 13.5 Hct 41.3 MCV 90.7 MCH 29.6 MCHC 32.6 RDW 13.1 Plt Count 291 Neut % (Auto) 78.4 H Lymph % (Auto) 14.3 L [place] % (Auto) 6.0 Eos % (Auto) 0.6 L Baso % (Auto) 0.7 Neut # (Auto) 8700 H Lymph # (Auto) 1600 [place] # (Auto) 700 Eos # (Auto) 100 Baso # (Auto) 100 PT 12.5 INR 1.1 APTT 34 Sodium Potassium Chloride Carbon Dioxide BUN Creatinine Estimated GFR BUN/Creatinine Ratio Glucose Calcium Magnesium 2.2 Total Bilirubin AST ALT Alkaline Phosphatase Total Creatine Kinase 55 CK-MB (CK-2) TNP CK-MB (CK-2) Rel Index TNP Troponin I 0.069 H NT-Pro-B Natriuret Pep 2300 H Total Protein Albumin Globulin Albumin/Globulin Ratio SARS-CoV-2 (PCR) 06/20/20 06/20/20 12:39 14:20 WBC RBC Hgb Hct MCV MCH MCHC RDW Plt Count Neut % (Auto) Lymph % (Auto) [place] % (Auto) Eos % (Auto) Baso % (Auto) Neut # (Auto) Lymph # (Auto) [place] # (Auto) Eos # (Auto) Baso # (Auto) PT INR APTT Sodium 141 Potassium 3.8 Chloride 110 H Carbon Dioxide 23 BUN 14 Creatinine 0.69 Estimated GFR > 60.0 BUN/Creatinine Ratio 20.3 Glucose 116 H Calcium 10.0 Magnesium Total Bilirubin 0.3 AST 22 ALT 17 Alkaline Phosphatase 120 Total Creatine Kinase CK-MB (CK-2) CK-MB (CK-2) Rel Index Troponin I NT-Pro-B Natriuret Pep Total Protein 6.9 Albumin 4.0 Globulin 2.9 Albumin/Globulin Ratio 1.4 SARS-CoV-2 (PCR) Negative Assessment & Plan Assessment & Plan narrative: Saddle block pulmonary embolism. EKG shows no abnormality. Seems to be tolerating well. Emergency room had discussed with cooker loader at [facility] who did not recommend intervention at this time other than heparin. Has some risk that this will release in be a life-threatening condition which certainly is possible. We discussed this with patient. At this point interventionalist thought it probably has been there for at least 10 days when she started having symptoms in that it should be stable at this point CT scan shows there is some possible right ventricular issue and will have to see what echo shows for that. At this time certainly no evidence of strain on EKG. Will repeat that in the morning. Heparin today. Will start Coumadin daily PT and heparin protocol will be her at least for few days. Will not look with Doppler for source. She has no significant extremity swelling probably pelvic and will not change treatment at this time. She understands. Questions answered. Will follow up in a.m.. Will place on continuous court recording monitor, and continuing pulse ox. Currently does not have big need for O2 is on she is not moving which we will hold her on. Will not put on calf sequential equipment due to possible risk of worsening. History of bleeding ulcers. Will continue on PPI. Certainly now that we are anticoagulating. History of left shoulder surgery. Seems to be stable pain control seems to be adequate with hydrocodone will continue. Chronic neck pain. Has been using hydrocodone for some time. Will watch closely but has not had issue with constipation will have to be careful. History migraines will have available usual medication. History of asthma. Will continue on her usual medicines and follow. GI prophylaxis. Already on PPI. Code status desires full. DVT prophylaxis at this point no issues secondary to the fact that she is on full-dose heparin will be on Coumadin. Disposition. Will be here until Coumadin is up and running. And make sure she stable. I suspect 3 or 4 days will see how things go. Will depend on how she feels and if there is any change in her symptoms.
--- NOTE | 2020-06-20 17:34 | DI.ECHO.S_ITS ---
[facility]---------+ [facility] +---------+ : : [address] : : : : [id number] : : : : Phone: [phone]+ Echocardiogram Report + + :Name: MARIBEL AVILES Study Date: 06/21/2020 Height: 66 in : :[facility] ReadingLocation: Weight: 192 lb : : Gender: Female BSA: 2.0 m2 : :: 1950 Age: 70 yrs BP: 149/93 mmHg: :Reason For Study: SADDLE BLOCK PULMONARY EMBOLISM : :Ordering Physician: AINSLEY, : :RANDY Performed By: Aurelia Adame : :Referring: RANDY SCHMITZ : + + Interpretation Summary Left ventricular systolic function is normal with an estimated ejection fraction of 60 to 65% without any focal wall motion abnormality. Diastolic function is likely normal with probable normal filling pressures. The right ventricle is mildly enlarged and mildly hypokinetic. There is moderate pulmonary hypertension with the right ventricular systolic pressure estimated at 41 mmHg with a CVP of 3 mmHg. Both atria are normal in size. There is mild tricuspid regurgitation but no other significant valvular abnormality. Procedure: A two-dimensional transthoracic echocardiogram with color flow and Doppler was performed. The study quality was technically adequate. There is no prior echocardiogram noted for this patient. The patient was in sinus rhythm with heart rates between 80-89 bpm during the exam. Left Ventricle: The left ventricle is normal in size and wall thickness. The ejection fraction is estimated to be 60-65%. Left ventricular systolic function appears normal without focal wall motion abnormalities. Diastolic parameters suggest probable normal left ventricular diastolic function and normal filling pressures. Right Ventricle: The right ventricle is mildly dilated. Right ventricular systolic function is mildly reduced. Atria: The left atrial size is normal. Right atrial size is normal. There is no Doppler evidence for an interatrial shunt. Mitral Valve: There is mild mitral annular calcification. The mitral valve leaflets appear normal. There is no evidence of stenosis, fluttering, or prolapse. There is trace mitral regurgitation. Aortic Valve: The aortic valve is trileaflet. The aortic valve is slightly calcified. The aortic valve opens well. There is no aortic valve stenosis. No aortic regurgitation is present. Tricuspid Valve: The tricuspid valve is normal in structure and function. There is mild tricuspid regurgitation. The right ventricular systolic pressure is estimated to be at least 41 mmHg based on an estimated right atrial pressure of 3 mm Hg. Pulmonic Valve: The pulmonic valve leaflets are thin and pliable; valve motion is normal. There is no pulmonic valvular regurgitation. There is no other significant valvular heart disease. Great Vessels: The aortic root is normal size. The dimensions of the ascending aorta are normal. The IVC is of normal diameter and collapses greater than 50% with a sniff. This suggests a low right atrial pressure of 3 mm Hg. Pericardium/ Pleura There is no pericardial effusion. There is no pleural effusion. MMode/2D Measurements & Calculations LVIDd: 3.7 cm LVOT diam: 2.0 cm LVIDs: 2.6 cm Ao root diam: 3.3 cm FS: 31.1 % asc Aorta Diam: 3.2 cm EPSS: 1.2 cm Ao Arch Diam (Prox Trans): 3.3 cm IVSd: 1.1 cm LVPWd: 0.81 cm LV wells. diameter/BSA (cm/m^2): 1.9 LV sys. diameter/BSA (cm/m^2): 1.3 LA A2 area: 15.7 cm2 RA long axis: 4.1 cm LA A4 area: 13.3 cm2 RA area: 15.5 cm2 LA length (vol): 4.7 cm RA vol: 49.7 ml LA vol: 38.0 ml RA : 25.3 ml/m2 LA vol index: 19.3 ml/m2 IVC diam: 1.4 cm RVD1 (basal): 3.6 cm TAPSE: 1.4 cm Doppler Measurements & Calculations Ao V2 max: 117.3 cm/sec LVOT Max Blanco: 112.9 cm/sec Ao V2 mean: 81.6 cm/sec LV V1 max P.1 mmHg Ao max P.5 mmHg LV V1 VTI: 20.9 cm Ao mean P.0 mmHg JUANCARLOS(I,D): 3.0 cm2 Ao V2 VTI: 21.7 cm JUANCARLOS(V,D): 3.0 cm2 sev ratio: 0.97 JUANCARLOS indexed to BSA (cm^2/m^2): 1.5 MV E max blanco: 50.9 cm/sec TR max blanco: 307.7 cm/sec MV A max blanco: 99.2 cm/sec TR max P.9 mmHg MV E/A: 0.51 PA V2 max: 54.8 cm/sec Med Peak E' Blanco: 5.6 cm/sec PA V2 mean: 35.9 cm/sec E/E' med: 9.0 PA mean P.61 mmHg Lat Peak E' Blanco: 8.6 cm/sec PA pr(Accel): 26.3 mmHg E/E' lat: 5.9 E/e' average: 7.5 MV dec time: 0.13 sec SV(LVOT): 64.5 ml Reading Physician:12:56 PM
[2020-06-20] MEDS: ATORVASTATIN 20 MG TABLET 40 MG PO (20:00)
[2020-06-20] MEDS: PANTOPRAZOLE 20 MG TABLET PO (20:01)
[2020-06-20] MEDS: GABAPENTIN 600 MG TABLET 1200 MG PO (20:01)
[2020-06-20] MEDS: HYDROCODONE/ACET 5/325 TABLET 2 TAB PO (20:01)
[2020-06-20] MEDS: SUMAtriptan 25 MG TABLET 50 MG PO (20:09)
[2020-06-20 20:46] LABS: INR 1.2 (0.9-1.3); Prothrombin Time 13.3 SECONDS (10.1-12.7)
[2020-06-20 21:03] LABS: Troponin I 0.057 ng/mL (0.01-0.034)
[2020-06-20 21:05] LABS: PTT Partial Thromboplastin Tim 114 SECONDS (26.4-36.2)
--- NOTE | 2020-06-20 23:54 | PC.NURSE ---
Admit/Evening Shift Note- Patient arrived to room via stretcher from ER at 1630. Patient able to pivot from stretcher to bed. Patient alert and oriented and able to make needs known to staff. Admit questions done, medications reviewed, physical assessment done, and skin check completed. Patient oriented to bed and bed controls, room ,lights, phone, menu, and call jasmine/tv remote. Heparin drip running as ordered. Safety measures in place. Patient agrees to call for assistance. Bed alarm activated. Call jasmine and phone within reach. will continue to monitor.
[2020-06-21] MEDS: ZOLPIDEM 5 MG TABLET 10 MG PO ×2 (01:04→22:07)
[2020-06-21 03:00] VITALS: BP 161/86; PULSE 91; RESP 18; TEMP 36.1; O2SAT 96
[2020-06-21] MEDS: HYDROCODONE/ACET 5/325 TABLET 2 TAB PO ×4 (03:03→21:07)
[2020-06-21 06:14] LABS: INR 1.1 (0.9-1.3); Prothrombin Time 12.9 SECONDS (10.1-12.7)
[2020-06-21 06:18] LABS: Add Manual Diff / Slide Review NO; Basophils Absolute Auto 0 /uL (0-100); Basophils Percent Auto 0.1 % (0-2); Eosinophils Absolute Auto 0 /uL (0-450); Hematocrit 39.1 % (36-46); Hemoglobin 13.1 g/dL (12.0-16.0); Lymphocytes Absolute Auto 1500 /uL (1100-4500); Lymphocytes Percent Auto 18.7 % (25-40); Mean Corpuscular HGB Conc 33.5 % (30-36); Mean Corpuscular Volume 89.5 fL (80-100); Monocytes Absolute Auto 700 /uL (0-900); Monocytes Percent Auto 8.4 % (3-14); Neutrophils Absolute Auto 5900 /uL (1500-7000); Neutrophils Percent Auto 72.8 % (50-75); Platelet Count 298 X10^3/uL (150-400); Red Blood Cell Count 4.37 X10^6/uL (4.0-5.2); Red Cell Distribution Width 13.2 % (11.6-14.8); White Blood Cell Count 8.2 X10^3/uL (4.5-11.0)
[2020-06-21 06:20] LABS: BUN Creatinine Ratio 22.2 (6-22); Blood Urea Nitrogen 12 mg/dL (7-17); Calcium 9.8 mg/dL (8.4-10.2); Carbon Dioxide 23 mmol/L (22-32); Chloride 110 mmol/L (98-107); Estimated Glomerular Filt Rate > 60.0 mL/min (>60); Glucose 145 mg/dL (80-110); HEMOLYSIS < 15 (0-50); Potassium 3.7 mmol/L (3.4-5.1); Sodium 139 mmol/L (137-145)
[2020-06-21 06:29] LABS: NT-proBNP (BNP-Adult 18+) 3280 pg/mL (<125)
[2020-06-21 07:00] VITALS: BP 128/68; PULSE 86; RESP 16; TEMP 36.6; O2SAT 95
[2020-06-21 07:03] LABS: PTT Partial Thromboplastin Tim 54 SECONDS (26.4-36.2)
--- NOTE | 2020-06-21 08:50 | P.PN_ITS ---
Subjective Subjective Date Patient Seen: 06/21/20 Time Patient Seen: 08:51 Interval history: Overall doing well today. Still feeling short of breath has not been up much. No other changes. No fevers no chills no leg swelling no arm swelling no other changes feeling well Exam Vital Signs (past 8 hours): - 06/21/20 03:00 06/21/20 07:00 Temperature 97.0 F L 97.8 F Pulse Rate 91 H 86 Respiratory Rate 18 16 Blood Pressure 161/86 H 128/68 Pulse Oximetry 96 95 Oxygen Delivery Method Room Air Oxygen Flow Rate 0 Narrative Exam Narrative: Alert smiling female in no acute distress Lungs are clear. Heart regular rate and rhythm. Abdomen is soft positive bowel sounds nontender extremities without edema Objective Labs Result Diagrams: 06/21/20 05:39 06/21/20 05:39 Labs: Laboratory Results - last 24 hr 06/20/20 06/20/20 06/20/20 12:39 12:39 12:39 WBC 11.2 H RBC 4.55 Hgb 13.5 Hct 41.3 MCV 90.7 MCH 29.6 MCHC 32.6 RDW 13.1 Plt Count 291 Neut % (Auto) 78.4 H Lymph % (Auto) 14.3 L [place] % (Auto) 6.0 Eos % (Auto) 0.6 L Baso % (Auto) 0.7 Neut # (Auto) 8700 H Lymph # (Auto) 1600 [place] # (Auto) 700 Eos # (Auto) 100 Baso # (Auto) 100 PT 12.5 INR 1.1 APTT 34 Sodium Potassium Chloride Carbon Dioxide BUN Creatinine Estimated GFR BUN/Creatinine Ratio Glucose Calcium Magnesium 2.2 Total Bilirubin AST ALT Alkaline Phosphatase Total Creatine Kinase 55 CK-MB (CK-2) TNP CK-MB (CK-2) Rel Index TNP Troponin I 0.069 H NT-Pro-B Natriuret Pep 2300 H Total Protein Albumin Globulin Albumin/Globulin Ratio SARS-CoV-2 (PCR) 06/20/20 06/20/20 06/20/20 12:39 14:20 20:25 WBC RBC Hgb Hct MCV MCH MCHC RDW Plt Count Neut % (Auto) Lymph % (Auto) [place] % (Auto) Eos % (Auto) Baso % (Auto) Neut # (Auto) Lymph # (Auto) [place] # (Auto) Eos # (Auto) Baso # (Auto) PT INR APTT 114 H* D Sodium 141 Potassium 3.8 Chloride 110 H Carbon Dioxide 23 BUN 14 Creatinine 0.69 Estimated GFR > 60.0 BUN/Creatinine Ratio 20.3 Glucose 116 H Calcium 10.0 Magnesium Total Bilirubin 0.3 AST 22 ALT 17 Alkaline Phosphatase 120 Total Creatine Kinase CK-MB (CK-2) CK-MB (CK-2) Rel Index Troponin I NT-Pro-B Natriuret Pep Total Protein 6.9 Albumin 4.0 Globulin 2.9 Albumin/Globulin Ratio 1.4 SARS-CoV-2 (PCR) Negative 06/20/20 06/20/20 06/21/20 20:25 20:25 05:39 WBC RBC Hgb Hct MCV MCH MCHC RDW Plt Count Neut % (Auto) Lymph % (Auto) [place] % (Auto) Eos % (Auto) Baso % (Auto) Neut # (Auto) Lymph # (Auto) [place] # (Auto) Eos # (Auto) Baso # (Auto) PT 13.3 H 12.9 H INR 1.2 1.1 APTT 54 H D Sodium Potassium Chloride Carbon Dioxide BUN Creatinine Estimated GFR BUN/Creatinine Ratio Glucose Calcium Magnesium Total Bilirubin AST ALT Alkaline Phosphatase Total Creatine Kinase CK-MB (CK-2) CK-MB (CK-2) Rel Index Troponin I 0.057 H NT-Pro-B Natriuret Pep Total Protein Albumin Globulin Albumin/Globulin Ratio SARS-CoV-2 (PCR) 06/21/20 06/21/20 05:39 05:39 WBC 8.2 RBC 4.37 Hgb 13.1 Hct 39.1 MCV 89.5 MCH 30.0 MCHC 33.5 RDW 13.2 Plt Count 298 Neut % (Auto) 72.8 Lymph % (Auto) 18.7 L [place] % (Auto) 8.4 Eos % (Auto) 0.0 L Baso % (Auto) 0.1 Neut # (Auto) 5900 Lymph # (Auto) 1500 [place] # (Auto) 700 Eos # (Auto) 0 Baso # (Auto) 0 PT INR APTT Sodium 139 Potassium 3.7 Chloride 110 H Carbon Dioxide 23 BUN 12 Creatinine 0.54 Estimated GFR > 60.0 BUN/Creatinine Ratio 22.2 H Glucose 145 H Calcium 9.8 Magnesium Total Bilirubin AST ALT Alkaline Phosphatase Total Creatine Kinase CK-MB (CK-2) CK-MB (CK-2) Rel Index Troponin I NT-Pro-B Natriuret Pep 3280 H Total Protein Albumin Globulin Albumin/Globulin Ratio SARS-CoV-2 (PCR) PFSH Medical History Anemia Anxiety Arthritis Asthma Asthma, mild intermittent Cervical strain Chronic pain Constipation Depression Environmental allergies Hay fever History of migraine History of stomach ulcers Hyperlipidemia Impaired vision Insomnia Left foot pain Migraine Neck pain Numbness and tingling in left arm Pain in both upper arms Postmenopausal Primary osteoarthritis, left shoulder Sinus drainage Strain of left rotator cuff capsule Stroke Surgical History H/O hand surgery History of back surgery History of colonoscopy History of esophagogastroduodenoscopy (EGD) History of laminectomy History of tonsillectomy Status post cervical spinal fusion Status post epidural steroid injection Social History household members: spouse Smoking Status: Never smoker alcohol intake: current Assessment & Plan Assessment & Plan narrative: Saddle block pulmonary embolus with possible right heart strain. We are at this point awaiting echo. She certainly seems compensated at this point. Continue heparin continue Coumadin we discussed new or anticoagulant she is worried about cost does not have a lot of money to front 9 months worth of medication. First dose tonight. Will follow from there. Re- evaluate after that. History of bleeding ulcers. Appears stable. Will follow. History of blood shoulder surgery seems to be doing well. Pain is well controlled. Chronic neck pain. Stable. No change at this time. History of migraines no episodes at this time. History of asthma certainly normal exam today no evidence of issues. GI prophylaxis already on PPI. Code status full DVT prophylaxis on Coumadin on heparin not an issue. Disposition. Need to get Coumadin up and bridged. Need to see what echo shows I suspect is going to be 3 days 4 days probably and will does have to see how
[2020-06-21] MEDS: LORATADINE 10 MG TABLET PO (09:16)
[2020-06-21] MEDS: GABAPENTIN 600 MG TABLET 1200 MG PO ×3 (09:16→20:35)
[2020-06-21] MEDS: PANTOPRAZOLE 20 MG TABLET PO ×2 (09:16→20:35)
[2020-06-21 11:00] VITALS: BP 136/66; PULSE 82; RESP 16; TEMP 36.4; O2SAT 96
--- NOTE | 2020-06-21 13:38 | CM.DANOTE ---
Patient is a 70 year old female who was admitted on 06/20/20 for SOB. Pt has [employer] [facility] for insurance and her PCP is Dr. Elijah Robert. EMR was reviewed. Per MD, pt with recent hx of shoulder surgery and admitted for Bilateral saddle block PE's and currently on hep drip and likely here a few days for Coumadin bridge before stable for d/c. SW met bedside briefly with pt as she is expressing she is very tired and groggy and requesting rest. Pt confirms that she discharged 2 weeks ago after shoulder surgery here with [facility] and was able to successfully d/c home with spouse assist and outpt PT. Pt resides in a duplex in [facility] with her and has 14 steps up to her bedroom and is independent at baseline and does not use DME to ambulate. Pt drives but has not been driving since her surgery yet. Pt preference is home with when medically stable and does not anticipate any d/c needs although she is somewhat concerned regarding any out of pocket expense for any new medications. Plan: SW to follow closely to confirm safe plan of home with assist at d/c in a couple days when stable and any further identified d/c planning needs. KIMBERLY Coburn Discharge Planning/Care Management CM Discharge Assessment Start: 06/21/20 13:35 Freq: Status: Active Protocol: Document 06/21/20 13:35 BF (Rec: 06/21/20 13:38 BF [id number]) Discharge Planning Assessment Assigned Shade Bander KIMBERLY Patel DPOA/Assigned Designee Name spouse Naseem Advance Directives? Yes History Provided By Patient,Medical Record Has Patient been admitted in last 30 Yes days? Comment Last admission about 2 weeks ago for shoulder surgery by [facility] Prior Living Arrangements Apartment/Condo Household Members spouse Type of transporation used prior to Drives own vehicle admit Independent with ADL's Yes Is patient alert and oriented? Yes Caregiver for Another No Patient/Family Preference Home with Home Health Comment Home likely, r/o HH Barriers to Discharge No Discharge Plan Home Transportation Arrangement Family to provide transport. Referrals Initiated None needed Additional Comment Follow to r/o HH crate liner Status In Process Please Provide Date Initial DC 06/21/20 Assessment Was Performed Next Review Type Continued Stay Review
[2020-06-21 15:25] VITALS: BP 149/84; PULSE 84; RESP 18; TEMP 36.9
[2020-06-21 15:31] LABS: INR 1.1 (0.9-1.3); Prothrombin Time 12.6 SECONDS (10.1-12.7)
[2020-06-21 16:19] LABS: PTT Partial Thromboplastin Tim 55 SECONDS (26.4-36.2)
[2020-06-21] MEDS: WARFARIN 5 MG TABLET PO (16:39)
[2020-06-21] MEDS: HEPARIN DRIP 25,000 UNIT/500 ML IV.SOLN 20 UNIT IV (17:14)
[2020-06-21] MEDS: HEPARIN 5,000 UNIT/ML VIAL 2000 UNIT IV (17:40)
--- NOTE | 2020-06-21 17:48 | PM.EVENT ---
Event Note Date Patient Seen: 06/21/20 Time Patient Seen: 17:48 Event Note: 17:05: Received call from nurse regarding patient reporting a fluttery, upper sternal discomfort just prior to 17:00. Nurse ran EKG which showed NSR. Telemetry, oxygen levels, and blood pressure all reportedly stable and normal. Reviewed labs and repeat troponin not done, ordered stat along with BNP. Heparin drip infusing. 17:40: Nurse called back and said that heparin bolus had not been administered at 8:30 am as intended and repeat 6 hour lab was not done. She is now giving the heparin bolus and will ensure that the follow up lab is run in 6 hours. Heparin drip currently at a rate of 20. Patient remains stable. Will watch closely.
[2020-06-21 19:58] VITALS: BP 118/70; PULSE 87; RESP 18; TEMP 36.5; O2SAT 93
[2020-06-21] MEDS: ATORVASTATIN 20 MG TABLET 40 MG PO (20:34)
--- NOTE | 2020-06-21 22:15 | PC.NURSE ---
Addendum entered by Judy Loyola R.N. 06/21/20 23:54: PTT recheck results back at 2300 with results at 71. No change to heparin drip at this time. Recheck of PTT ordered for 06/22/2020 at 0600 Original Note: Evening Shift Note- Patientcontinues on heparin drip. Blood drawn for PTT at 0540 this morning per protocol. APTT at 54 which called for a 200u bolus and increase drip from 18 to 20 when results received, and recheck in 6 hours. Bolus heparin dose and 6hr recheck missed. APTT added to a 1530 blood draw. APTT results= 55. Heparin Drip changed to 22 per protocol and 2000u bolus heparin given. Recheck scheduled for 2200 this evening. During physical assessment patient complained of a fluttery feeling with dicomfort/pressure to upper sternum area. States this is a new feeling. checked vital signs, tele, O2 sats, and ordered EKG. Called and spoke with . Troponin and BNP ordered, notified of missed bolus of heparin this AM. Patient report no longer having that feeling when rechecked after speaking with . Safety measures in place. Call jasmine and phone within reach. will continue to monitor.
[2020-06-21 22:32] LABS: NT-proBNP (BNP-Adult 18+) 1380 pg/mL (<125)
[2020-06-21 22:35] LABS: Troponin I 0.022 ng/mL (0.01-0.034)
[2020-06-21 22:59] LABS: INR 1.1 (0.9-1.3); Prothrombin Time 12.8 SECONDS (10.1-12.7)
[2020-06-21 23:15] VITALS: BP 104/59; PULSE 83; RESP 18; TEMP 36.3; O2SAT 94
[2020-06-21 23:30] LABS: PTT Partial Thromboplastin Tim 71 SECONDS (26.4-36.2)
[2020-06-22] VITALS (7 sets, daily range): BP systolic 103–143; BP diastolic 64–79; PULSE 68–82; RESP 15–18; TEMP 36.3–37.1; O2SAT 93–96
[2020-06-22 05:44] LABS: PTT Partial Thromboplastin Tim 64 SECONDS (26.4-36.2)
[2020-06-22] MEDS: HEPARIN 5,000 UNIT/ML VIAL 2000 UNIT IV (07:00)
[2020-06-22] MEDS: PANTOPRAZOLE 20 MG TABLET PO ×2 (08:00→20:50)
[2020-06-22] MEDS: GABAPENTIN 600 MG TABLET 1200 MG PO ×3 (08:00→20:50)
[2020-06-22] MEDS: HYDROCODONE/ACET 5/325 TABLET 2 TAB PO ×3 (08:00→20:50)
[2020-06-22] MEDS: LORATADINE 10 MG TABLET PO (08:00)
--- NOTE | 2020-06-22 08:11 | PC.NURSE ---
Patient alert, oriented, denies chest pain and shortness of breath, lungs CTA, sats on RA 96%. C/o pain to left shoulder 6/10, given two tabs 5/325mg norco.
--- NOTE | 2020-06-22 08:27 | PM.PN.1 ---
Subjective Subjective Date Patient Seen: 06/22/20 Time Patient Seen: 08:27 Interval history: Patient overall feeling better today. Did have an episode of shortness of breath although not hypoxic. She is still not requiring oxygen. Lasted about 3-4 hours. Had no shortness of breath. No other changes. Otherwise no changes. Energy level is been good. Has not been moving much. Exam Vital Signs (past 8 hours): - 06/22/20 05:30 Temperature 97.4 F L Pulse Rate 69 Respiratory Rate 18 Blood Pressure 103/64 Pulse Oximetry 96 Oxygen Delivery Method Room Air Oxygen Flow Rate 0 Narrative Exam Narrative: Alert elderly female in no acute distress. Lungs are clear. Heart regular rate and rhythm. Lungs is clear. Abdomen is soft positive bowel sounds nontender no other changes. Objective Labs Result Diagrams: 06/21/20 05:39 06/21/20 05:39 Labs: Laboratory Results - last 24 hr 06/21/20 06/21/20 06/21/20 15:18 22:01 22:01 PT 12.6 INR 1.1 APTT 55 H Troponin I 0.022 NT-Pro-B Natriuret Pep 1380 H 06/21/20 06/22/20 22:43 05:21 PT 12.8 H INR 1.1 APTT 71 H D 64 H Troponin I NT-Pro-B Natriuret Pep PFSH Medical History Anemia Anxiety Arthritis Asthma Asthma, mild intermittent Cervical strain Chronic pain Constipation Depression Environmental allergies Hay fever History of migraine History of stomach ulcers Hyperlipidemia Impaired vision Insomnia Left foot pain Migraine Neck pain Numbness and tingling in left arm Pain in both upper arms Postmenopausal Primary osteoarthritis, left shoulder Sinus drainage Strain of left rotator cuff capsule Stroke Surgical History H/O hand surgery History of back surgery History of colonoscopy History of esophagogastroduodenoscopy (EGD) History of laminectomy History of tonsillectomy Status post cervical spinal fusion Status post epidural steroid injection Social History household members: spouse Smoking Status: Never smoker alcohol intake: current Assessment & Plan Assessment & Plan narrative: Subtle block pulmonary embolus. Apparently will be of able to take Eliquis. Will discontinue Coumadin will work towards starting Eliquis will continue on heparin will start to mobilize will discuss with Hematology on appropriate next step. History of bleeding ulcers. Appears stable. Will follow. History of blood shoulder surgery seems to be doing well. Pain is well controlled. Chronic neck pain. Stable. No change at this time. History of migraines no episodes at this time. History of asthma certainly normal exam today no evidence of issues. GI prophylaxis already on PPI. Code status full DVT prophylaxis on Coumadin on heparin not an issue. Disposition. Need to get Coumadin up and bridged. Need to see what echo shows I suspect is going to be 3 days 4 days probably and will does have to see how
[2020-06-22] MEDS: MAGNESIUM HYDROXIDE 30 ML UDC PO (10:00)
--- NOTE | 2020-06-22 13:38 | DI.ECHO.S_ITS ---
[place] [facility]---------+ [facility] +---------+ : : [address] : [address] : : : : [id number] : : : : Phone: [phone] Echocardiogram Report + + :Name: MARIBEL AVILES Study Date: 06/23/2020 Height: 66 in : :[facility] ReadingLocation: Weight: 191 lb : : Gender: Female BSA: 2.0 m2 : :: 1950 Age: 70 yrs BP: 121/78 mmHg: :Reason For Study: PULMONARY EMBOLISM : : Performed By: Gerard Pérez : :Referring: RANDY SCHMITZ : + + Interpretation Summary The right ventricle is at the upper limits of normal in size. The right ventricular systolic function is normal.TAPSE: 2.0 cm. Right ventricular systolic function has increased since previous exam. There is mild tricuspid regurgitation. Compared to the prior echo exam, there has been no change in TR severity. The right ventricular systolic pressure is estimated to be at least 40 mmHg based on an estimated right atrial pressure of 3 mm Hg. Compared to the prior echo exam, there has been no change in the severity of pulmonary hypertension. Procedure: A limited echocardiogram was performed to assess right ventricular size and function. The study quality was technically adequate. Comparison is made with the echocardiogram of 06/21/20. The patient was in normal sinus rhythm during the exam. Right Ventricle: The right ventricle is at the upper limits of normal in size. The right ventricular systolic function is normal. Right ventricular systolic function has increased since previous exam. Tricuspid Valve: The tricuspid valve is normal. There is mild tricuspid regurgitation. The right ventricular systolic pressure is estimated to be at least 40 mmHg based on an estimated right atrial pressure of 3 mm Hg. Compared to the prior echo exam, there has been no change in TR severity. Compared to the prior echo exam, there has been no change in the severity of pulmonary hypertension. Great Vessels: The IVC is of normal diameter and collapses greater than 50% with a sniff. This suggests a low right atrial pressure of 3 mm Hg. MMode/2D Measurements & Calculations LVIDd: 4.2 cm IVC diam: 1.3 cm LVIDs: 2.2 cm FS: 46.8 % IVSd: 0.98 cm LVPWd: 0.83 cm LV wells. diameter/BSA (cm/m^2): 2.1 LV sys. diameter/BSA (cm/m^2): 1.1 RVD1 (basal): 3.6 cm RVD2 (mid): 3.5 cm TAPSE: 2.0 cm Doppler Measurements & Calculations TR max tahira: 303.3 cm/sec TR max P.8 mmHg Reading Physician:11:26 AM
[2020-06-22 14:11] LABS: PTT Partial Thromboplastin Tim 86 SECONDS (26.4-36.2)
[2020-06-22] MEDS: HEPARIN DRIP 25,000 UNIT/500 ML IV.SOLN 24 UNIT IV (14:26)
[2020-06-22] MEDS: ZOLPIDEM 5 MG TABLET 10 MG PO (20:50)
[2020-06-22] MEDS: ATORVASTATIN 20 MG TABLET 40 MG PO (20:50)
[2020-06-22] MEDS: SODIUM CHLORIDE 0.9% FLUSH 10 ML IV (20:51)
[2020-06-23 03:30] VITALS: BP 121/78; PULSE 80; RESP 16; TEMP 36.6; O2SAT 97
[2020-06-23] MEDS: HYDROCODONE/ACET 5/325 TABLET 2 TAB PO ×2 (03:58→09:20)
--- NOTE | 2020-06-23 04:12 | PC.NURSE ---
Addendum entered by Abigail Rendon R.N. 06/23/20 06:03: 0500 aPTT level is 86. No changes being made to heparin drip at this time. Next aPTT draw tomorrow, 06/24 at 0500 along with a HGB/HCT and platelets (CBC with auto diff). Original Note: 2305 Received safe hand-off report. The patient is lying, awake in bed with HOB elevated to 30 degrees. She is oriented x4, on room air with oxygen saturation at 94%, and has a right antecubital PIV with heparin infusing at 24mL/h. She c/o left shoulder pain, but is tolerating the pain currently and declines medicine at this time. Denies SOB, denies CP. No s/s of distress. 0400 Pt up to bedside commode with standby assistance. Denies SOB, denies CP. C/O left shoulder pain 10/05, and asking for pain medicine; administered [place] per order. Pt also c/o back itching ever since I got a bed bath. Informed her it could be due to the lotion that was put on and sweating from being in bed for a long while. I assisted patient with using a warm, wet cloth and wiping her back down to remove any sweat/excess lotion, then dried her back. Pt seemed pleased with that. Now lying on her right side with HOB elevated to 20 degrees. No s/s of distress.
[2020-06-23 05:33] LABS: PTT Partial Thromboplastin Tim 86 SECONDS (26.4-36.2)
--- NOTE | 2020-06-23 07:29 | PM.PN.1 ---
Subjective Subjective Date Patient Seen: 06/23/20 Time Patient Seen: 07:29 Interval history: Doing well this morning. Denies any shortness of breath. On room air. Awaiting her echo today. Tolerating full diet, no nausea vomiting. Ambulating around her room. Exam Vital Signs (past 8 hours): - 06/22/20 23:30 06/23/20 03:30 Temperature 98.1 F 97.9 F Pulse Rate 82 80 Respiratory Rate 16 16 Blood Pressure 129/71 121/78 Pulse Oximetry 93 97 Oxygen Delivery Method Room Air Oxygen Flow Rate 0 Narrative Exam Narrative: GENERAL: Alert and oriented, appearing stated age and in no acute distress. HEENT: Head normocephalic/atraumatic. LUNGS: Clear to ausculation bilaterally, no wheezes, rhonchi or rales. CV: Normal S1 and S2 with regular rate and rhythm, no audible murmurs, rubs or gallops. ABDOMEN: Soft, non-tender, non-distended, no organomegaly. Positive bowel sounds. EXTREMITIES: Postsurgical left shoulder pain causing limited range of motion. No clubbing, cyanosis, or edema. NEURO: Cranial nerves II through XII grossly intact, no focal deficits. PSYCH: Alert and oriented x 3. SKIN: No concerning lesions. Objective Labs Result Diagrams: 06/21/20 05:39 06/21/20 05:39 Labs: Laboratory Results - last 24 hr 06/22/20 06/23/20 13:45 05:00 APTT 86 H* D 86 H* PFSH Medical History Anemia Anxiety Arthritis Asthma Asthma, mild intermittent Cervical strain Chronic pain Constipation Depression Environmental allergies Hay fever History of migraine History of stomach ulcers Hyperlipidemia Impaired vision Insomnia Left foot pain Migraine Neck pain Numbness and tingling in left arm Pain in both upper arms Postmenopausal Primary osteoarthritis, left shoulder Sinus drainage Strain of left rotator cuff capsule Stroke Surgical History H/O hand surgery History of back surgery History of colonoscopy History of esophagogastroduodenoscopy (EGD) History of laminectomy History of tonsillectomy Status post cervical spinal fusion Status post epidural steroid injection Social History household members: spouse Smoking Status: Never smoker alcohol intake: current Assessment & Plan Assessment & Plan narrative: 1. Saddle block pulmonary embolus. -Repeat echo today showed no change in severity of pulmonary hypertension. Right ventricular systolic function has increased since previous exam. Plan: Will discontinue heparin and start Eliquis 5 mg p.o. b.i.d.. Anticipate discharge tomorrow. 2. History of bleeding ulcers. Plan: Appears stable. Will follow. 3. History of recent left shoulder surgery, doing well. Pain is well controlled. Plan: Continue supportive therapy and pain control. 4. Chronic neck pain, stable. No change at this time. 5. History of migraines no episodes at this time. 6. History of asthma, no evidence of issues. GI prophylaxis: already on PPI. Code status: full DVT prophylaxis: eliquis Disposition: Anticipate home tomorrow.
[2020-06-23 09:12] VITALS: BP 125/77; PULSE 65; RESP 14; TEMP 36.7; O2SAT 96
[2020-06-23] MEDS: GABAPENTIN 600 MG TABLET 1200 MG PO ×3 (09:20→21:06)
[2020-06-23] MEDS: PANTOPRAZOLE 20 MG TABLET PO ×2 (09:20→21:06)
[2020-06-23] MEDS: LORATADINE 10 MG TABLET PO (09:20)
[2020-06-23] MEDS: HEPARIN DRIP 25,000 UNIT/500 ML IV.SOLN 24 UNIT IV (10:01)
[2020-06-23 11:17] VITALS: BP 131/74; PULSE 69; RESP 18; TEMP 36.6; O2SAT 96
--- NOTE | 2020-06-23 11:22 | PC.NURSE ---
Patient A/O x 4. is bedside. PICC line intact, heparin infusing 24 ml/hr per protocol. Patient tolerating. No rashes or bruising noted. L shoulder incision WNL. Pain reported 10/05. PRN [place] administered. Patient on RA, denies SOB or increased WOB with activity. Patient only up to BSC. Voiding, urine clear and yellow. BT active x 4. Last BM 06/22. Denies N/V.
--- NOTE | 2020-06-23 12:35 | PC.NURSE ---
I pass medication for AM on this patient today with the nurse.
[2020-06-23 17:15] VITALS: BP 134/116; PULSE 71; RESP 16; TEMP 36.4; O2SAT 95
[2020-06-23 20:30] VITALS: BP 157/79; PULSE 76; RESP 17; TEMP 36.7; O2SAT 95
[2020-06-23] MEDS: SODIUM CHLORIDE 0.9% FLUSH 10 ML IV (20:35)
[2020-06-23] MEDS: ATORVASTATIN 20 MG TABLET 40 MG PO (21:05)
[2020-06-23] MEDS: APIXABAN 5 MG TABLET PO (21:06)
[2020-06-23] MEDS: ZOLPIDEM 5 MG TABLET 10 MG PO (21:08)
[2020-06-23 23:45] VITALS: BP 127/65; PULSE 77; RESP 18; TEMP 36.1; O2SAT 95
[2020-06-24] MEDS: HYDROCODONE/ACET 5/325 TABLET 2 TAB PO ×2 (02:22→09:58)
[2020-06-24 03:34] VITALS: BP 114/69; PULSE 72; RESP 18; TEMP 36.1; O2SAT 93
[2020-06-24 06:15] LABS: Add Manual Diff / Slide Review NO; Basophils Absolute Auto 0 /uL (0-100); Basophils Percent Auto 0.7 % (0-2); Eosinophils Absolute Auto 200 /uL (0-450); Eosinophils Percent Auto 3.2 % (2-4); Hematocrit 38.8 % (36-46); Lymphocytes Absolute Auto 1900 /uL (1100-4500); Lymphocytes Percent Auto 28.5 % (25-40); Mean Corpuscular HGB Conc 33.5 % (30-36); Mean Corpuscular Hemoglobin 30.1 PG (26-34); Mean Corpuscular Volume 89.7 fL (80-100); Monocytes Absolute Auto 600 /uL (0-900); Monocytes Percent Auto 8.7 % (3-14); Neutrophils Absolute Auto 3900 /uL (1500-7000); Neutrophils Percent Auto 58.9 % (50-75); Platelet Count 261 X10^3/uL (150-400); Red Blood Cell Count 4.33 X10^6/uL (4.0-5.2); Red Cell Distribution Width 13.1 % (11.6-14.8); White Blood Cell Count 6.7 X10^3/uL (4.5-11.0)
[2020-06-24 06:18] LABS: PTT Partial Thromboplastin Tim 37 SECONDS (26.4-36.2)
[2020-06-24 08:15] VITALS: BP 177/77; PULSE 91; RESP 18; TEMP 36.7; O2SAT 97
[2020-06-24] MEDS: APIXABAN 5 MG TABLET PO (08:29)
[2020-06-24] MEDS: SUMAtriptan 25 MG TABLET 50 MG PO (08:30)
[2020-06-24] MEDS: SODIUM CHLORIDE 0.9% FLUSH 10 ML IV (08:30)
[2020-06-24] MEDS: LORATADINE 10 MG TABLET PO (08:30)
[2020-06-24] MEDS: GABAPENTIN 600 MG TABLET 1200 MG PO (08:30)
[2020-06-24] MEDS: PANTOPRAZOLE 20 MG TABLET PO (08:30)
--- NOTE | 2020-06-24 08:39 | PC.NURSE ---
Addendum entered by Rose Marie Hernandez R.N. 06/24/20 13:46: Patient given discharge instructions regarding follow up appointment, medication, fall risk, return to activity and summary of care. Patient verbalized understanding. IV removed. Patient tolerated. Patient assisted via wheelchair to car. was bedside during discharge instruction and teaching. Items retrieved from safe. Original Note: Patient A/O x 4, resting in bed. Repositioned with assist. Cont pulse ox intact, patient on RA, 97%. Denies SOB or chest pain. Patient c/o GALAN, Imitrex administered. Patient denies N/V. Saline locked at this time, L AC IV patent and w/o s/s of complications. Call light in reach.
--- NOTE | 2020-06-24 10:03 | PC.NURSE ---
Gave/pass AM medication with the nurse
--- NOTE | 2020-06-24 11:59 | P.DS_ITS ---
History of Present Illness History of Present Illness Date Patient Seen: 06/24/20 Time Patient Seen: 12:00 Chief complaint: shortness of breath, started 10 days ago Narrative: Patient is a 70-year-old white female who presents with 2 day history of worsening shortness of breath. Patient is 2 weeks out from shoulder surgery on her left side. She apparently had done well until about 4 days after surgery when she started noted that she was having a little short of breath when she got up and walked around. It seemed to be slowly getting worse over the last 10 d ays. Until the last 2 days it got significantly worse. She never had any leg swelling. No thigh pain. No abdominal pain. She has not had any chest pain. She only noticed it when she was up get around. She got to the 0.2 days ago where she walked much more than across the room she felt like she had to get their quicker she was not going to make it. This really only lasted for 24 hours she was seen by her surgeon today who recommended she go to the emergency room after discussing with us.. She has had no nausea or vomiting. She has had no night sweats or other changes. She continues to deny any swelling or discomfort in her legs except a little bit on the anterior left cardoso. She has had no orthopnea. No edema. No other changes. Patient had a mild tachycardia but had no oxygen requirement. No other changes. Discharge Providers Provider Date of admission: 06/20/20 15:21 Discharge Date: 06/24/20 Primary care physician: Elijah Robert MD Consults: 06/20/20 12:25 Consult to Respiratory Therapy Evaluate & Treat Comment: Physician Instructions: Evaluate and treat 06/20/20 17:34 Consult to Discharge Planning Routine Comment: Consult to Respiratory Therapy Evaluate & Treat Comment: Physician Instructions: Evaluate and treat Discharge provider: Hanna Whitley MD Summary Hospital Course Discharge Diagnosis: 1. Saddle block pulmonary embolus, acute. 2. History of bleeding ulcers. 3. History of recent left shoulder surgery, doing well. 4. Chronic neck pain, stable 5. History of migraines, stable 6. History of asthma, stable Hospital Course: Patient was initially on a heparin drip, now transitioned to Eliquis. She will continue Eliquis in the outpatient setting. She had 2 echos during her stay with no change in severity of her pulmonary hypertension. Throughout her stay, she has not required any oxygen and has maintained her oxygen saturations in the mid to high 90s. Has had no further shortness of luis carlos ath since starting heparin. Blood pressure has been labile and associated with her shoulder pain from recent surgery. Otherwise, on day of discharge, she is afebrile with stable vital signs throughout. Exam Vital Signs (past 8 hours): - 06/24/20 08:15 Temperature 98.1 F Pulse Rate 91 H Respiratory Rate 18 Blood Pressure 177/77 H Pulse Oximetry 97 Oxygen Delivery Method Room Air Oxygen Flow Rate 0 Narrative Exam Narrative: GENERAL: Alert and oriented, appearing stated age and in no acute distress. HEENT: Head normocephalic/atraumatic. LUNGS: Clear to ausculation bilaterally, no wheezes, rhonchi or rales. CV: Normal S1 and S2 with regular rate and rhythm, no audible murmurs, rubs or gallops. ABDOMEN: Soft, non-tender, non-distended, no organomegaly. Positive bowel sounds. EXTREMITIES: Postsurgical left shoulder pain causing limited range of motion. No clubbing, cyanosis, or edema. NEURO: Cranial nerves II through XII grossly intact, no focal deficits. PSYCH: Alert and oriented x 3. SKIN: No concerning lesions. Objective Labs Result Diagrams: 06/24/20 05:55 06/21/20 05:39 Labs: Laboratory Results - last 24 hr 06/24/20 06/24/20 05:55 05:55 WBC 6.7 RBC 4.33 Hgb 13.0 Hct 38.8 MCV 89.7 MCH 30.1 MCHC 33.5 RDW 13.1 Plt Count 261 Neut % (Auto) 58.9 Lymph % (Auto) 28.5 Noble % (Auto) 8.7 Eos % (Auto) 3.2 Baso % (Auto) 0.7 Neut # (Auto) 3900 Lymph # (Auto) 1900 Noble # (Auto) 600 Eos # (Auto) 200 Baso # (Auto) 0 APTT 37 H D PFS Medical History Anemia Anxiety Arthritis Asthma Asthma, mild intermittent Cervical strain Chronic pain Constipation Depression Environmental allergies Hay fever History of migraine History of stomach ulcers Hyperlipidemia Impaired vision Insomnia Left foot pain Migraine Neck pain Numbness and tingling in left arm Pain in both upper arms Postmenopausal Primary osteoarthritis, left shoulder Sinus drainage Strain of left rotator cuff capsule Stroke Surgical History H/O hand surgery History of back surgery History of colonoscopy History of esophagogastroduodenoscopy (EGD) History of laminectomy History of tonsillectomy Status post cervical spinal fusion Status post epidural steroid injection Social History household members: spouse Smoking Status: Never smoker alcohol intake: current Discharge Plan Discharge Plan Patient Disposition: Home Discharge orders & Medications Prescriptions: New Eliquis 5 mg Tablet 5 mg PO BID Qty: 180 RF: 3 Continued atorvastatin 40 mg Tablet 40 mg PO QPM RF: 0 sumatriptan succinate 100 mg Tablet 50 mg PO SEEINSTR PRN (Reason: Migraine Headache) RF: 0 diphenhydramine HCl 25 mg Capsule 50 mg PO Q4-6H PRN (Reason: Allergies) RF: 0 acetaminophen 500 mg Capsule 1,000 mg PO PRN PRN (Reason: Pain) RF: 0 omeprazole 20 mg Tablet,Delayed Release (Dr/Ec) 20 mg PO BID Qty: 0 RF: 0 zolpidem 10 mg Tablet 10 mg PO BEDTIME PRN (Reason: Sleep) RF: 0 methocarbamol 500 mg tablet 1,000 mg PO Q6H PRN (Reason: Spasms or Pain) RF: 0 gabapentin 600 mg tablet 1,200 mg PO TID RF: 0 hydroxyzine pamoate [Vistaril] 25 mg capsule 25 mg PO QID PRN (Reason: Muscle Spasm) RF: 0 loratadine 10 mg Tablet 10 mg PO DAILY RF: 0 nabumetone 500 mg Tablet 1,000 mg PO DAILY RF: 0 hydrocodone-acetaminophen 5-325 mg Tablet 2 tab PO Q4HR PRN (Reason: Pain, Severe (7-10)) Qty: 40 RF: 0 Follow up/Referrals: Elijah Robert MD [Primary Care Provider] - Diet/Activity/Treatments Diet: Diet as Tolerated Activity: Fall precautions, advance as tolerated Skin/Wound/Dressing Care Report to your healthcare provider any signs of infection, such as:: chills, fever and increased pain Visit Report/Discharge Packet Instructions: DI for Heart Failure Discharge Data Primary Care Provider: Elijah Robert
--- NOTE | 2020-06-24 12:37 | CM.DPC ---
DCP Cont: Patient is discharging home today. Gave patient copy of her IMM. is here to transport. P: Patient is discharging home today with no needs. Angela Ny RN/Mix Chemist
== END 2020-06-24 12:55 | disposition home or self-care (01) | DRG 176 ==
LOC: ED 15:20 → AC 15:22
PROVIDERS: Student in an Organized Health Care Education/Training Program; Admitting Provider Family Medicine; Emergency Provider Emergency Medicine; PCP Family Medicine; Referring Provider Emergency Medicine; Visit Provider Family Medicine
DX: I26.92 Saddle embolus of pulmonary artery without acute cor pulmonale (principal); R07.89 Other chest pain; E78.5 Hyperlipidemia, unspecified; G47.30 Sleep apnea, unspecified; J45.20 Mild intermittent asthma, uncomplicated; G89.29 Other chronic pain; Z98.890 Other specified postprocedural states; Z20.822 Contact with and (suspected) exposure to COVID-19
CPT/HCPCS: 36415; 71275; 80048; 80053; 81003; 82550; 83735; 83880; 84484; 85025; 85610; 85730; 87635; 93005; 93306; 93307; 96365; 96366; 96375; 99284; 99285; C9803; J1200; J1644; J2930; Q9967

== ENCOUNTER → 2021-02-24 15:03 | Outpatient (CLI) | payer OTHER, SELFPAY ==
[2020-06-20 16:31] VITALS: BMI 30.9
--- NOTE | 2021-02-24 | DI.MG.S_ITS ---
BILATERAL DIGITAL SCREENING MAMMOGRAM 3D/2D WITH CAD: 02/24/2021 CLINICAL: Routine screening. Family history of breast cancer. Comparison is made to exams dated: 02/03/2019 mammogram, 11/14/2006 mammogram, and 11/15/2005 mammogram - [facility]. The tissue of both breasts is predominantly fatty. Current study was also evaluated with a Computer Aided Detection (CAD) system. No significant masses, calcifications, or other findings are seen in either breast. There has been no significant interval change. IMPRESSION: NEGATIVE There is no mammographic evidence of malignancy. A 1 year screening mammogram is recommended. This exam was interpreted at Station ID: [id number]. NOTE: For mammograms, a report in lay terms will be sent to the patient. Approximately 15% of breast malignancies will not be visualized mammographically. In the management of a palpable breast mass, a negative mammogram must not discourage biopsy of a clinically suspicious lesion. Electronically Signed By: Roberto Carlos [email or web address]:02/26/2021 09:55:48 letter sent: Normal Exam ACR BI-RADS Category 1: Negative 3341F
== END ==
PROVIDERS: PCP Family Medicine; Referring Provider Family Medicine; Visit Provider Family Medicine
DX: Z12.31 Encounter for screening mammogram for malignant neoplasm of breast (principal); Z80.3 Family history of malignant neoplasm of breast
CPT/HCPCS: 77063; 77067

== ENCOUNTER → 2021-04-13 14:39 | Outpatient (CLI) | payer OTHER, SELFPAY ==
[2020-06-20 16:31] VITALS: BMI 30.9
== END ==
PROVIDERS: PCP Family Medicine; Referring Provider Family Medicine; Visit Provider Family Medicine
DX: M81.0 Age-related osteoporosis without current pathological fracture (principal); Z78.0 Asymptomatic menopausal state; Z82.62 Family history of osteoporosis
CPT/HCPCS: 77080

== ENCOUNTER → 2021-09-19 07:54 | Outpatient (CLI) | payer OTHER, SELFPAY ==
[2020-06-20 16:31] VITALS: BMI 30.9
--- NOTE | 2021-09-19 | DI.NM.S_ITS ---
PROCEDURE: NM UPTAKE AND SCAN RADIOPHARMACEUTICAL: 390 ?Ci I-123 sodium iodide by mouth. INDICATIONS: Hypopituitarism TECHNIQUE: I-123 sodium iodide was administered orally. Anterior neck images were obtained, and iodine uptake by the thyroid gland calculated using butadiene converter operator's software. COMPARISON: CT, CT ANGIO CHEST PE PROTOCOL, 06/20/2020, 13:43. FINDINGS: Morphology: The thyroid gland has normal morphology and uniform activity. No 'cold' or 'hot' thyroid nodules are identified. Uptake: The 6-hour thyroid uptake is 12.3%; normal ranges are from 6-18%. The 24-hour thyroid uptake is 20.9%; normal ranges are from 10-30%. IMPRESSION: Normal thyroid uptake and scan. Dictated by: Peyton Coon M.D. on 09/20/2021 at 14:43 Approved by: Peyton Coon M.D. on 09/20/2021 at 14:45
== END ==
PROVIDERS: PCP Family Medicine; Referring Provider Family Medicine; Visit Provider Family Medicine
DX: E23.0 Hypopituitarism (principal)
CPT/HCPCS: 78014; A9516

== ENCOUNTER → 2021-09-20 08:26 | Outpatient (CLI) | payer OTHER, SELFPAY ==
[2020-06-20 16:31] VITALS: BMI 30.9
== END ==
PROVIDERS: PCP Family Medicine; Referring Provider Family Medicine; Visit Provider Family Medicine
DX: E23.0 Hypopituitarism (principal)

== ENCOUNTER → 2021-11-06 13:25 | Outpatient (ROUT) | payer OTHER, SELFPAY ==
[2020-06-20 16:31] VITALS: BMI 30.9
[2021-11-06 13:52] LABS: COVID19 -Nasal RAPID Negative (Negative)
== END ==
PROVIDERS: PCP Family Medicine; Visit Provider Family Medicine
DX: Z20.822 Contact with and (suspected) exposure to COVID-19 (principal)
CPT/HCPCS: 87635

== ENCOUNTER → 2022-01-08 14:28 | Outpatient (CLI) | payer OTHER, SELFPAY ==
[2020-06-20 16:31] VITALS: BMI 30.9
--- NOTE | 2022-01-08 14:31 | DI.RAD.S_ITS ---
PROCEDURE: XR KNEE RT 3V INDICATIONS: KNEE PAIN TECHNIQUE: 3 views of the knee were acquired. COMPARISON: Located Within [facility], , KNEE 3V RIGHT, 09/11/2010, 10:14. FINDINGS: Bones: No fractures or dislocations. No suspicious bony lesions. There is [id number] tricompartmental osteoarthritic type degenerative change involving the patient's right knee. Again noted is a small exostosis involving the patient's medial tibial plateau. Soft tissues: No joint effusion. No suspicious soft tissue calcifications. IMPRESSION: 1. No evidence for acute osseous abnormality involving the patient's right knee. 2. Stable [id number] tricompartmental osteoarthritic type degenerative change. 3. Stable small exostosis involving the medial tibial plateau. Dictated by: Allen Rolle M.D. on 01/08/2022 at 15:40 Approved by: Allen Rolle M.D. on 01/08/2022 at 15:43
== END ==
PROVIDERS: PCP Family Medicine; Referring Provider Family Medicine; Visit Provider Family Medicine
DX: M25.561 Pain in right knee (principal); M89.9 Disorder of bone, unspecified
CPT/HCPCS: 73562

== ENCOUNTER → 2022-03-08 14:28 | Outpatient (CLI) | payer OTHER, SELFPAY ==
[2020-06-20 16:31] VITALS: BMI 30.9
--- NOTE | 2022-03-08 14:29 | DI.MG.S_ITS ---
BILATERAL DIGITAL SCREENING MAMMOGRAM 3D/2D WITH CAD: 03/08/2022 CLINICAL: Routine screening. Family history of breast cancer. Comparison is made to exams dated: 02/24/2021 mammogram and 02/03/2019 mammogram - [facility]. Both breasts are almost entirely fatty (category a/<25% glandular tissue). Current study was also evaluated with a Computer Aided Detection (CAD) system. No significant masses, calcifications, or other findings are seen in either breast. There has been no significant interval change. IMPRESSION: NEGATIVE There is no mammographic evidence of malignancy. A 1 year screening mammogram is recommended. Based on the Tyrer Cuzick model (a risk assessment model) the patient's lifetime risk is 2.3% and her 10 year risk is 2.1%. According to the ACR, ACS, and NCCN guidelines, an annual breast MRI exam along with mammogram is recommended if the patient's lifetime risk is 20% or greater. This exam was interpreted at Station ID: [id number]. NOTE: For mammograms, a report in lay terms will be sent to the patient. Approximately 15% of breast malignancies will not be visualized mammographically. In the management of a palpable breast mass, a negative mammogram must not discourage biopsy of a clinically suspicious lesion. Electronically Signed By: Nahid funes/[email or web address]:03/08/2022 17:41:11 letter sent: Normal Exam ACR BI-RADS Category 1: Negative 3341F
== END ==
PROVIDERS: PCP Family Medicine; Referring Provider Family Medicine; Visit Provider Family Medicine
DX: Z12.31 Encounter for screening mammogram for malignant neoplasm of breast (principal); Z80.3 Family history of malignant neoplasm of breast
CPT/HCPCS: 77063; 77067

== ENCOUNTER → 2022-03-11 16:03 | Outpatient (CLI) | payer OTHER, SELFPAY ==
[2020-06-20 16:31] VITALS: BMI 30.9
--- NOTE | 2022-03-11 16:08 | DI.RAD.S_ITS ---
PROCEDURE: XR SHOULDER RT MIN 2V INDICATIONS: Right shoulder pain TECHNIQUE: 3 views of the shoulder were acquired. COMPARISON: [facility], CR, XR SHOULDER LT MIN 2V, 09/14/2019, 15:14. FINDINGS: Bones: No fractures or dislocations. No suspicious bony lesions. Visualized ribs appear intact. Soft tissues: No suspicious soft tissue calcifications. IMPRESSION: Unremarkable right shoulder radiographs Approved by: Quinton Funk M.D. on 03/11/2022 at 16:39
== END ==
PROVIDERS: PCP Family Medicine; Referring Provider Family Medicine; Visit Provider Family Medicine
DX: M25.511 Pain in right shoulder (principal)
CPT/HCPCS: 73030

== ENCOUNTER → 2022-07-05 14:57 | Outpatient (CLI) | payer OTHER, SELFPAY ==
[2020-06-20 16:31] VITALS: BMI 30.9
--- NOTE | 2022-07-05 | DI.MRI.S_ITS ---
PROCEDURE: MR SHOULDER RT WO CON INDICATIONS: right rotator cuff tear TECHNIQUE: Noncontrast oblique coronal T2 fast spin echo with fat saturation, oblique sagittal T1 spin echo and T2 fast spin echo with fat saturation, axial T1 spin echo and T2 fast spin echo with fat saturation through the shoulder. COMPARISON: [facility], CR, XR SHOULDER RT MIN 2V, 03/11/2022, 16:08. FINDINGS: Image quality: Excellent. Rotator cuff: There is low-grade partial articular sided tearing of the supraspinatus tendon at the distal insertion superimposed on moderate tendinosis. Mild infraspinatus tendinosis. The teres minor tendon is intact. There is moderate subscapularis tendinosis and low-grade partial intrasubstance tearing at the superior insertion. There is no disproportionate rotator cuff muscle atrophy. Mild edema in the medial supraspinatus and subscapularis muscles is compatible with mild low-grade muscle strains. Bones and bursae: No acute trabecular bone injury or fracture. Chronic traction cystic changes are seen at the posterosuperior humeral head and greater tuberosity near the rotator cuff tendon insertions. There is full-thickness cartilage loss at the superior medial humeral head and in the central glenoid with subchondral cystic changes and marginal osteophytes. A moderate glenohumeral effusion is seen with moderate synovial hypertrophy. An intra-articular chondral loose body is also not excluded. Moderate degenerative changes are seen at the acromioclavicular joint with subchondral cystic changes and edema and marginal osteophyte formation. There is a trace amount of subacromial/subdeltoid bursal fluid. Capsule and soft tissues: Mild diffuse labral degeneration. There is tendinosis of the proximal biceps long head tendon with mild subluxation into the substance of the distal subscapularis tendon. There is effacement of the rotator interval fat. Glenohumeral ligaments are does. IMPRESSION: 1. Low-grade partial articular sided tearing of the supraspinatus tendon at the distal insertion superimposed on moderate tendinosis. 2. Moderate tendinosis and low-grade partial intrasubstance tearing of the subscapularis tendon at the superior insertion. 3. Mild edema within the medial supraspinatus and subscapularis muscles is compatible with low-grade strains. 4. Moderate tendinosis of the proximal biceps long head tendon with mild medial subluxation into the distal subscapularis tendon. 5. Glenohumeral degenerative changes including multifocal full-thickness cartilage loss. A medium-sized glenohumeral effusion is seen with moderate synovial hypertrophy. 6. Moderate acromioclavicular joint osteoarthrosis. Approved by: Nahid Mejia M.D. on 07/05/2022 at 16:43
== END ==
PROVIDERS: PCP Family Medicine; Referring Provider Orthopaedic Surgery; Visit Provider Orthopaedic Surgery
DX: M75.111 Incomplete rotator cuff tear or rupture of right shoulder, not specified as traumatic (principal); M19.011 Primary osteoarthritis, right shoulder
CPT/HCPCS: 73221

== ENCOUNTER → 2023-08-21 14:51 | Outpatient (CLI) | payer OTHER, SELFPAY ==
[2020-06-20 16:31] VITALS: BMI 30.9
--- NOTE | 2023-08-21 | DI.RAD.S_ITS ---
PROCEDURE: XR DEXA AXIAL SKELETON INDICATIONS: Localized osteoporosis [[place]] COMPARISON: [facility], , XR DEXA AXIAL SKELETON, 04/13/2021, 15:34. [facility], , XR DEXA AXIAL SKELETON, 03/05/2019, 14:16. FINDINGS: Lumbar Spine: Bone mineral density is 0.910 g/cm2, T score -1.2. Left Hip: Bone mineral density 0.676 g/cm2, T score -2.2. Left Femoral Neck: Bone mineral density 0.577 g/cm2, T score -2.4. Right Hip: Bone mineral density 0.663 g/cm2, T score -2.3. Right Femoral Neck: Bone mineral density 0.642 g/cm2, T score -1.9. Fracture Risk Calculation (when applicable): 10-year fracture risk of a major osteoporotic fracture 22% and of a hip fracture 12%. (T score greater or equal to -1.0 to: NORMAL) (T score from -1.1 to -2.4: OSTEOPENIA) (T score less than or equal to -2.5: OSTEOPOROSIS) IMPRESSION: Osteopenia Follow-up guidelines as follows: Osteoporosis: Consider a repeat DEXA and Vertebral Fracture Assessment (VFA) exam in 2 years or sooner if medically necessary, to reassess this patient's status. Osteopenia: Consider a repeat DEXA in 2-3 years to reassess this patient's status, or if there is a new clinical indication. Normal: Consider a repeat DEXA in 5 years or sooner, or if there is a new clinical indication. Dictated by: Yousif Gallegos M.D. on 08/21/2023 at 22:12 Approved by: Yousif Gallegos M.D. on 08/21/2023 at 22:14
== END ==
PROVIDERS: PCP Family Medicine; Referring Provider Family Medicine; Visit Provider Family Medicine
DX: M81.6 Localized osteoporosis [Lequesne] (principal)
CPT/HCPCS: 77080

== ENCOUNTER → 2023-10-06 13:27 | Outpatient (CLI) | payer OTHER, SELFPAY ==
[2020-06-20 16:31] VITALS: BMI 30.9
--- NOTE | 2023-10-06 13:29 | DI.RAD.S_ITS ---
PROCEDURE: XR SHOULDER RT MIN 2V INDICATIONS: RIGHT SHOULDER PAIN TECHNIQUE: Three views of the shoulder were acquired. COMPARISON: [facility], , XR SHOULDER RT MIN 2V, 03/11/2022, 16:08. FINDINGS: Bones: No acute fracture, dislocation, or separation. Mild degenerative change at the acromioclavicular joint and glenohumeral joint. There is a new bone anchor in the humeral head. Soft tissues: No suspicious soft tissue calcifications. IMPRESSION: No acute bony abnormality. Dictated by: Zoey Isaacs M.D. on 10/06/2023 at 15:47 Approved by: Zoey Isaacs M.D. on 10/06/2023 at 15:49
== END ==
LOC: RAD 13:28
PROVIDERS: PCP Family Medicine; Referring Provider Anesthesiology; Visit Provider Anesthesiology
DX: M25.511 Pain in right shoulder (principal)
CPT/HCPCS: 73030

== ENCOUNTER → 2023-10-18 15:28 | Outpatient (CLI) | payer OTHER, SELFPAY ==
[2020-06-20 16:31] VITALS: BMI 30.9
--- NOTE | 2023-10-18 15:29 | DI.MRI.S_ITS ---
PROCEDURE: MR CERVICAL SPINE WO CON INDICATIONS: h/o fusion, upper motor neuron signs TECHNIQUE: Noncontrast sagittal T1 spin echo and T2 fast spin echo, sagittal STIR, foraminal oblique sagittal T2 fast spin echo, and axial gradient echo or T2 fast spin echo through the cervical spine. COMPARISON: [facility], CT, CT CERVICAL SPINE WO CON, 12/01/2019, 11:00. [facility], MR, C-SPINE WITHOUT CONTRAST, 07/20/2015, 13:13. FINDINGS: Image quality: Excellent. 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 Remote ACDF at C5-C6 and C6-C7. Mature interbody fusion at C6-C7. Facet joint fixation devices are present bilaterally at C4-C5 through C6-C7. Remote left hemilaminectomy at C5-C6 and C6-C7. There is normal bony alignment. Bone Marrow: Marrow demonstrates normal overall signal. Spinal Cord: Cervical cord signal is unchanged. 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 No cerebellar tonsillar herniation. Paraspinous Soft Tissues: No paravertebral masses. Prevertebral soft tissues are normal in thickness. There are numerous right thyroid nodules and a left thyroid nodule. C2-C3: Congenital fusion. No canal stenosis or foraminal stenosis. C3-C4: Slight interval increase in posterior disc osteophyte complex without canal stenosis. Prominent bilateral uncovertebral joint hypertrophy. Severe bilateral foraminal narrowing with bilateral foraminal C4 nerve root impingement. C4-C5: Unchanged findings. Disc bulge. No canal stenosis. Exuberant facet hypertrophy and prominent uncovertebral joint hypertrophy. Moderate to severe bilateral foraminal narrowing with bilateral foraminal C5 nerve root impingement. C5-C6: Remote ACDF. Remote left hemilaminectomy. No canal stenosis. Prominent uncovertebral joint hypertrophy. Moderate to severe bilateral foraminal narrowing with a degree of bilateral foraminal C6 nerve root impingement. C6-C7: Remote ACDF and left hemilaminectomy. No canal stenosis. No significant right foraminal narrowing. Moderate left foraminal narrowing. C7-T1: No canal stenosis or foraminal stenosis. IMPRESSION: 1. Congenital fusion of C2-C3. 2. Extensive multilevel surgical changes are again noted. These include ACDF and right hemilaminectomy at C5-C6 and C6-C7 as well as multilevel bilateral facet joint effusion. 3. Stable cord signal abnormality. Findings include a small syrinx centered at C4 as well as bilateral signal abnormality consistent with myelomalacia at C5-C6. 4. No canal stenosis. 5. Significant multilevel foraminal narrowing as described above. Findings include severe bilateral foraminal narrowing at C3-C4, as well as moderate to severe bilateral foraminal narrowing at C4-C5 and C5-C6. Dictated by: Mario Henry M.D. on 10/20/2023 at 11:46 Approved by: Mario Henry M.D. on 10/20/2023 at 12:06
== END ==
PROVIDERS: PCP Family Medicine; Referring Provider Anesthesiology; Visit Provider Anesthesiology
DX: M48.02 Spinal stenosis, cervical region (principal); M47.22 Other spondylosis with radiculopathy, cervical region; M54.2 Cervicalgia; Z98.1 Arthrodesis status
CPT/HCPCS: 72141

== ENCOUNTER → 2024-06-17 13:26 | Outpatient (CLI) | payer MEDICARE, SELFPAY ==
[2020-06-20 16:31] VITALS: BMI 30.9
--- NOTE | 2024-06-17 13:29 | DI.RAD.S_ITS ---
PROCEDURE: XR DEXA AXIAL SKELETON INDICATIONS: osteoporosis COMPARISON: [facility], , XR DEXA AXIAL SKELETON, 08/21/2023, 15:25. FINDINGS: Lumbar Spine: Bone mineral density 0.936 (previously 0.910) g/cm2, T score -1.0 (previously-1.2). Left Femoral Neck: Bone mineral density 0.597 (previously 0.577) g/cm2, T score -2.3 (previously-2.4) Left Hip: Bone mineral density 0.680 (previously 0.676) g/cm2, T score -2.1 (previously-2.2). Fracture Risk Calculation (when applicable): 10-year fracture risk of a major osteoporotic fracture 38 percent and of a hip fracture 23 percent. (T score greater or equal to -1.0 to: NORMAL) (T score from -1.1 to -2.4: OSTEOPENIA) (T score less than or equal to -2.5: OSTEOPOROSIS) IMPRESSION: Osteopenia---recommend repeat DEXA in 2-3 years for reassessment. Follow-up guidelines as follows: Osteoporosis: Consider a repeat DEXA and Vertebral Fracture Assessment (VFA) exam in 2 years or sooner if medically necessary, to reassess this patient's status. Osteopenia: Consider a repeat DEXA in 2-3 years to reassess this patient's status, or if there is a new clinical indication. Normal: Consider a repeat DEXA in 5 years or sooner, or if there is a new clinical indication. All treatment decisions require clinical judgment and consideration of individual patient factors, including patient preferences, comorbidities, previous drug use, risk factors not captured in the FRAX model (e.g., frailty, falls, vitamin D deficiency, increased bone turnover, interval significant decline in bone density ) and possible under- or over-estimation of fracture risk by FRAX. In addition, the NOF Guide recommends that FDA-approved medical therapies be considered in postmenopausal women and men age >= 50 years with a: * Hip or vertebral (clinical or morphometric) fracture * T-score of <=-2.5 at the spine or hip * Ten-year fracture probability by FRAX of >= 3% for hip fracture or >=20% for major osteoporotic fracture. Dictated by: Bashir Cortez M.D. on 06/17/2024 at 21:47 Approved by: Bashir Cortez M.D. on 06/17/2024 at 21:49
== END ==
PROVIDERS: PCP Family Medicine; Referring Provider Family Medicine; Visit Provider Family Medicine
DX: M81.0 Age-related osteoporosis without current pathological fracture (principal)
CPT/HCPCS: 77080

== ENCOUNTER → 2024-10-15 14:31 | Outpatient (CLI) | payer MEDICARE, SELFPAY ==
[2020-06-20 16:31] VITALS: BMI 30.9
--- NOTE | 2024-10-15 14:32 | DI.US.S_ITS ---
PROCEDURE: US THYROID INDICATIONS: subclinical hyperthyroidism TECHNIQUE: Real-time scanning was performed of the thyroid gland, with image documentation. COMPARISON: None. FINDINGS: Thyroid: Right lobe measures 4.8 x 1.4 x 2.1 cm. Left lobe measures 3.6 x 1.6 x 1.8 cm. Echotexture is heterogeneous, with multiple thyroid nodules. The largest are measured as follows Nodule number: 1 Location: Right superior pole Size: 1.6 x 1.0 x 1.1 cm. Composition: Solid Echogenicity: Hypoechoic Shape: wider than tall. Margins: Smooth with Echogenic foci: None Total points: 4 ACR TI-RADS category: 4 Nodule number: 2 Location: Right midpole Size: 1.1 x 0.8 x 1.0 cm. Composition: Solid Echogenicity: Hypoechoic Shape: wider than tall. Margins: Irregular Echogenic foci: Punctate echogenic foci Total points: 7 ACR TI-RADS category: 5 Nodule number: 3 Location: Left superior pole Size: 1.2 x 1.1 x 1.1 cm. Composition: Solid Echogenicity: Hypoechoic Shape: wider than tall. Margins: Ill-defined Echogenic foci: comet tail Total points: 4 ACR TI-RADS category: 4 Nodule number: 4 Location: Left superior to midpole Size: 0.8 x 0.7 x 1.0 cm. Composition: Solid Echogenicity: Hypoechoic Shape: wider than tall. Margins: Irregular Echogenic foci: Probable comet tail Total points: 4 ACR TI-RADS category: 4 IMPRESSION: Multiple thyroid nodules, the largest 4 are measured. Many contain echogenic foci, which are likely colloid, less like punctate calcifications. Of note, nodule 2 does meet size criteria for biopsy. ACR TI-RADS definitions and recommendations: TI-RADS 1 (benign): 0 points. FNA not needed. TI-RADS 2 (not suspicious): 2 points. FNA not needed. TI-RADS 3: 3 points. * FNA if 2.5 cm or larger, follow up if 1.5 cm or larger (at 1, 3, and 5 years). TI-RADS 4: 4-6 points. * FNA if 1.5 cm or larger, follow up if 1 cm or larger (at 1, 2, 3, and 5 years). TI-RADS 5: 7 points or more. * FNA if 1 cm or larger, follow up if 0.5 cm or larger (every year for 5 years). Dictated by: Fredi Feliz M.D. on 10/15/2024 at 21:31 Approved by: Fredi Feliz M.D. on 10/15/2024 at 21:37
== END ==
LOC: US 14:31
PROVIDERS: PCP Family Medicine; Referring Provider Family Medicine; Visit Provider Family Medicine
DX: E05.90 Thyrotoxicosis, unspecified without thyrotoxic crisis or storm (principal); E04.2 Nontoxic multinodular goiter
CPT/HCPCS: 76536

== ENCOUNTER → 2024-11-05 12:02 | Outpatient (CLI) | payer MEDICARE, SELFPAY ==
[2020-06-20 16:31] VITALS: BMI 30.9
--- NOTE | 2024-11-05 | PATH_ITS ---
Note [facility] Accession Number: [id number] TESTS RESULT FLAG UNITS REF RANGE LAB Clinician Provided Cytology Information No. of containers..02 Previously Prepared Cytology Slide 35 Unknown Storage/container code(s) Source: RIGHT THYROID NODULE #2 DIAGNOSIS: RIGHT THYROID NODULE #2, FINE NEEDLE ASPIRATION. BENIGN. BETHESDA CATEGORY II. SPECIMEN CONSISTS OF BENIGN FOLLICULAR CELLS, HEMOSIDERIN-LADEN MACROPHAGES, COLLOID, AND BLOOD. THIS PATTERN IS CONSISTENT WITH FOLLICULAR NODULAR DISEASE. Pathologist ICD10: E04.1 Signed out by: Nancy Bravo MD, Pathologist NPI- [id number] Performed by: Donnie Bowles, Medication Coordinator ([facility]) Gross description: 30 CC, COLORLESS, CLEAR RECIEVED: IN CYTOLYT WITH 6 ALCOHOL FIXED AND 6 QUICK STAINED SLIDES ALSO 1 RNA VIAL WILL ON 05-13-2026.VO /VDU 11/08/2024 1051 Local FLAG LEGEND: L-Low Normal,H-High Normal,LL-Alert Low,HH-Alert High <-Panic Low,>-Panic High,A-Abnormal,AA-Critical Abnormal Performed at: 01 [address] [facility], [place] [address] Venkat Ahmadi MD, Performed at: [address], [place], [place] [id number] MD Venkat Ahmadi MD Phone: [phone]
--- NOTE | 2024-11-05 12:05 | DI.US.S_ITS ---
PROCEDURE: US FINE NEEDLE ASPIRATION INDICATIONS: RIGHT NODULE TECHNIQUE: The indications, alternatives, benefits, risks, and complications of the procedure were explained to the patient. Written informed consent was obtained and placed in the chart. The thyroid region was examined sonographically and a site was chosen for ultrasound guided percutaneous sampling. The skin was prepared and draped in the usual fashion, and anesthetized with 1% lidocaine infiltrated from the skin down to the thyroid gland. Multiple passes were then performed, with contents emptied into an appropriate pathology specimen container. A bandage was applied to the area of access at completion of the study. COMPARISON: [facility], US, US THYROID, 10/15/2024, 14:38. FINDINGS: Location of lesion sampled: Right mid thyroid (nodule #2 on ultrasound dated 10/15/2024) Herman: 25 gauge hypodermic needles. Number of passes: 6 Medications: 1% lidocaine for local anaesthesia. Complications: None. IMPRESSION: Successful ultrasound-guided thyroid nodule fine needle aspiration, with cytology results pending. Please see chart below for management recommendations based on cytology results. [facility] System ReportingRecommendationsNon-diagnostic* Repeat US-guided FNA, with on-site cytology evaluation if possible. * Repeated non-diagnostic nodules without high suspicion US features: close observation vs surgical consult. * Consider surgery if nodule has high suspicion US features, grows >20% in 2 dimensions on followup, or patient has clinical risk factors for malignancy. Benign* If nodule has high suspicion US features: repeat US and FNA within 12 months. * If nodule has low to intermediate suspicion US features: repeat US at 12-24 months. If nodule grows (20% increase in at least 2 dimensions, with minimal increase of 2 mm or >50% change in volume), or development of new suspicious US features, then repeat FNA or continue followup. * If nodule has very low suspicion US features: followup US at >24 months. Atypia of undetermined significance, follicular lesion of undetermined significanceRepeat FNA, molecular testing, followup US, or surgical consult.Follicular neoplasm, suspicious for follicular neoplasmSurgical consult; also consider molecular testing. Suspicious for malignancySurgical consult.MalignantSurgical consult. Approved by: Nahid Mejia M.D. on 11/05/2024 at 19:55
== END ==
PROVIDERS: PCP Family Medicine; Referring Provider Family Medicine; Visit Provider Family Medicine
DX: E04.1 Nontoxic single thyroid nodule (principal)
CPT/HCPCS: 10005